=== PATIENT | female | born 1930 | race Caucasian/White ===

== ENCOUNTER 2020-05-07 16:32 | Inpatient (IN) | payer MEDICARE ==
[~2020-05-07] VITALS: Ht 152.4 cm; Wt 32.6 kg
--- NOTE | 2020-05-07 17:38 | PHYS DOC ---
General Adult EDM: Chief Complaint: HIP PAIN HPI: HPI: Patient is a 89 year old female who presents with left hip pain after a stumble and fall at approximately 1600 today. States that she did not lose consciousness, states that her hip immediately hurt after her fall and she was unable to get up and walk. Patient denies any fever or chills at home, patient denies any visual changes, patient denies any nasal congestion, cough, shortness of breath, chest pain, abdominal pain, nausea, vomiting, diarrhea, constipation. Patient denies any problems urinating. Patient denies any back pains, skin rashes, headaches, focal weaknesses, or sensory changes. She denies any swelling of her glands. Patient denies any depression or anxiety. Review of Systems: Review of Systems: Constitutional: Denies fever or chills. Eyes: Denies change in visual acuity. HENT: Denies nasal congestion or sore throat. Respiratory: Denies cough or shortness of breath. Cardiovascular: Denies chest pain or edema. GI: Denies abdominal pain, nausea, vomiting, bloody stools or diarrhea. : Denies dysuria. Musculoskeletal: Denies back pain, complains of left hip pain. Integument: Denies rash. Neurologic: Denies headache, focal weakness or sensory changes. Psychiatric: Denies depression or anxiety. Heart Score: Risk Factors: Risk Factors: DM, Current or recent (<one month) smoker, HTN, HLP, family h istory of CAD, obesity. Risk Scores: Score 0 - 3: 2.5% MACE over next 6 weeks - Discharge Home Score 4 - 6: 20.3% MACE over next 6 weeks - Admit for Clinical Observation Score 7 - 10: 72.7% MACE over next 6 weeks - Early Invasive Strategies Allergies: Allergies: Patient is allergic to penicillin, amoxicillin, aspirin, clarithromycin, erythromycin base, and ibuprofen. Allergies Coded Allergies Type Severity Reaction Last Updated Verified Penicillins Allergy Unknown Rash 05/07/20 Yes amoxicillin Allergy Unknown Rash 05/07/20 Yes aspirin Allergy Unknown Unknown 05/07/20 Yes clarithromycin Allergy Unknown Unknown 05/07/20 Yes erythromycin base Allergy Unknown Rash 05/07/20 Yes ibuprofen Allergy Unknown Unknown 05/07/20 Yes Physical Exam: PE: Constitutional: Well developed, well nourished, no acute distress, non-toxic appearance. HENT: Normocephalic, atraumatic, bilateral external ears normal, oropharynx moist, no oral exudates, nose normal. Eyes: PERRLA, EOMI, conjunctiva normal, no discharge. Neck: Normal range of motion, no tenderness, supple, no stridor. Cardiovascular:Heart rate regular rhythm, no murmur no abnormalities per auscultation Lungs & Thorax: Bilateral breath sounds I/E wheezes upper lobes, diminished in bilateral lower lobes. Abdomen: Bowel sounds normal, soft, no tenderness, no masses, no pulsatile masses. Skin: Warm, dry, no erythema, no rash. Back: No tenderness, no CVA tenderness. Extremities: Tenderness to the right hip area without full range of motion related to pain., no cyanosis, no clubbing, no edema. Neurologic: Alert and oriented X 3, normal motor function, normal sensory function, no focal deficits noted. Psychologic: Affect normal, judgement normal, mood normal. EKG: EKG: [] Radiology/Procedures: Radiology/Procedures: REASON: FALL/DEFORMITY 12 PROCEDURE: HIP LEFT 2V WITH PELVIS Exam: Pelvis with left hip 2 views INDICATION: Fall, deformity TECHNIQUE: Frontal view of pelvis with frontal and frog-leg lateral views of the left hip Comparisons: None FINDINGS: There is a comminuted intertrochanteric left hip fracture which is moderately displaced. Lesser trochanter is medially displaced. No other fractures are seen. Joint spaces are well-maintained. Mild osteopenia. IMPRESSION: Comminuted moderately displaced intertrochanteric left hip fracture. Electronically signed by: Lisa Ann MD (05/07/2020 7:25 PM) [id number] DICTATED and SIGNED BY: LISA ANN MD DATE: 05/07/201924 REASON: FALL/DEFORMITY PROCEDURE: CHEST AP ONLY Exam: Chest one view INDICATION: Fall, deformity TECHNIQUE: Frontal view of the chest Comparisons: None FINDINGS: The cardiomediastinal silhouette and pulmonary vessels are within normal limits. The lung and pleural spaces are clear. IMPRESSION: No acute cardiopulmonary process. Electronically signed by: Lisa Ann MD (05/07/2020 7:23 PM) [id number] DICTATED and SIGNED BY: LISA ANN MD DATE: 05/07/201922 Course & Med Decision Making: Course & Med Decision Making Pertinent Labs and Imaging studies reviewed. (See chart for details) 89-year-old female patient presented emergency department stating that she was trying to go see what a dog was barking that stumbled and fell injuring her left hip. She denied any loss of consciousness. Imaging was ordered which showed a left hip fracture. Patient had i.e. wheezes to auscultation during lung exam however patient denies shortness of breath. Patient states that if she would get a breathing treatment that would probably go away. Patient states she has a history of COPD. A albuterol treatment was ordered, patient states that she does not feel really any different but she never felt short of breath to begin with. Discussed case with Dr. Hi who agreed to take patient for admission. Consulted with Dr. Moralez by ED attending Dr. Arana. Discussed with patient patient will be admitted to floor and Ortho surgery and will be seeing her. Patient agreed to this plan. Patient admitted to floor without incident. Dragon Disclaimer: Dragon Disclaimer: This electronic medical record was generated, in whole or in part, using a voice recognition dictation system. Departure Departure Impression: Primary Impression: Hip fracture, left Qualified Codes: S72.002A - Fracture of unspecified part of neck of left femur, initial encounter for closed fracture Disposition: ADMITTED INPATIENT Admitting Physician: [facility] (Dr. Hi) Condition: GUARDED Referrals: ALLEGRA NUR MD (PCP) Justicifation of Admission Dx: Justifications for Admission: Justification of Admission Dx: Yes Fracture: Fracture Comments: Left hip fracture. ANNE MARIE MACIAS APRN May 07, 2020 17:38
[2020-05-07] MEDS ORDERED: ALBUTEROL SULFATE 2.5 MG/3 ML NEBU. NEB ONE (17:45)
[2020-05-07] MEDS ORDERED: fentaNYL PF VIAL 100 MCG/2 ML VIAL IVP ONE ×2 (17:45→18:45)
[2020-05-07 17:53] LABS: BASO % 1 % (0-3); EOS # 0.1 x10^3/uL (0.0-0.7); EOS % 2 % (0-3); HEMATOCRIT 38.8 % (36.0-47.0); HEMOGLOBIN 12.9 g/dL (12.0-15.5); LYMPH # 0.6 x10^3/uL (1.0-4.8); LYMPH % 12 % (24-48); MEAN CORPUSCULAR HEMOGLOBIN 29 pg (25-35); MEAN CORPUSCULAR HGB CONC 33 g/dL (31-37); MEAN CORPUSCULAR VOLUME 87 fL (79-100); MONO # 0.5 x10^3/uL (0.0-1.1); MONO % 12 % (0-9); NEUT # 3.4 x10^3/uL (1.8-7.7); NEUT % 73 % (31-73); PLATELET COUNT 232 x10^3/uL (140-400); RED BLOOD COUNT 4.46 x10^6/uL (3.50-5.40); RED CELL DISTRIBUTION WIDTH 14.9 % (11.5-14.5); WHITE BLOOD COUNT 4.7 x10^3/uL (4.0-11.0)
[2020-05-07 18:01] LABS: CALCIUM 8.7 mg/dL (8.5-10.1); CREATININE 0.9 mg/dL (0.6-1.0); GFR 59.2; POTASSIUM 3.1 mmol/L (3.5-5.1)
[2020-05-07 18:03] LABS: PROTHROMBIN TIME PATIENT 11.9 SEC (11.7-14.0)
[2020-05-07 18:08] LABS: ALBUMIN 2.9 g/dL (3.4-5.0); ALBUMIN/GLOBULIN RATIO 0.9 (1.0-1.7); TOTAL BILIRUBIN 0.4 mg/dL (0.2-1.0); TOTAL PROTEIN 6.3 g/dL (6.4-8.2)
--- NOTE | 2020-05-07 19:26 | RAD ---
Exam: Chest one view INDICATION: Fall, deformity TECHNIQUE: Frontal view of the chest Comparisons: None FINDINGS: The cardiomediastinal silhouette and pulmonary vessels are within normal limits. The lung and pleural spaces are clear. IMPRESSION: No acute cardiopulmonary process. Electronically signed by: Paola Smart MD (05/07/2020 7:23 PM) [id number]
--- NOTE | 2020-05-07 19:28 | RAD ---
Exam: Pelvis with left hip 2 views INDICATION: Fall, deformity TECHNIQUE: Frontal view of pelvis with frontal and frog-leg lateral views of the left hip Comparisons: None FINDINGS: There is a comminuted intertrochanteric left hip fracture which is moderately displaced. Lesser trochanter is medially displaced. No other fractures are seen. Joint spaces are well-maintained. Mild osteopenia. IMPRESSION: Comminuted moderately displaced intertrochanteric left hip fracture. Electronically signed by: Paola Smart MD (05/07/2020 7:25 PM) [id number]
[2020-05-07 19:45] VITALS: BP 103/62
--- NOTE | 2020-05-07 20:25 | PDOC1 ---
History and Physical Date of Admission: Date of Admission DATE: 05/07/20 TIME: 20:20 Chief Complaint: Chief Complain: Fall History of Present Illness: HPI: Patient is a pleasant 89-year-old female with past medical history of COPD who comes from home because of left-sided hip pain after a fall that occurred around 1600 today. Patient states that she also fell this morning but she only injured her hand at that time. The second fall which she had occurred sometime after lunch and she states that she tripped over a rug in her bedroom. Patient is unsure whether she was dizzy or not. She denies loss of consciousness or seizure activity. Patient states that she does live at home and walks unassisted. She has never had a fall before. Patient describes as pain in her left groin area and she is unable to move her leg. Pain is exacerbated by movement. Denies shortness of breath, chest pain, abdominal pain, diarrhea, or loss of appetite. Past Medical/Surgical History: PMH/PSH: History of breast cancer Allergies: Allergies: Coded Allergies: Penicillins (Verified Allergy, Unknown, Rash, 05/07/20) amoxicillin (Verified Allergy, Unknown, Rash, 05/07/20) aspirin (Verified Allergy, Unknown, Unknown, 05/07/20) clarithromycin (Verified Allergy, Unknown, Unknown, 05/07/20) erythromycin base (Verified Allergy, Unknown, Rash, 05/07/20) ibuprofen (Verified Allergy, Unknown, Unknown, 05/07/20) Family History: Family History: Review and then reported Social History: Social History: Smokes about a pack every 2 to 3 days Current Medications: Current Medications Current Medications Fentanyl Citrate (Fentanyl 2ml Vial) 25 mcg 1X ONCE IVP Last administered on 05/07/20at 18:12; Start 05/07/20 at 17:45; Stop 05/07/20 at 17:46; Status DC Albuterol Sulfate (Ventolin Neb Soln) 2.5 mg 1X ONCE NEB Last administered on 05/07/20at 18:28; Start 05/07/20 at 17:45; Stop 05/07/20 at 17:46; Status DC Fentanyl Citrate (Fentanyl 2ml Vial) 50 mcg 1X ONCE IVP Last administered on 05/07/20at 18:47; Start 05/07/20 at 18:45; Stop 05/07/20 at 18:46; Status DC ROS: Review of Systems Review of System REVIEW OF SYSTEMS: GENERAL: Denies weakness SKIN: No bruising, hair changes or rashes. EYES: No blurred, double or loss of vision. NOSE AND THROAT: No history of nosebleeds, hoarseness or sore throat. HEART: No history of palpitations, chest pain or shortness of breath on exertion. LUNGS: Denies cough, hemoptysis, wheezing or shortness of breath. GASTROINTESTINAL: Denies changes in appetite, nausea, vomiting, diarrhea or constipation. GENITOURINARY: No history of frequency, urgency, hesitancy or nocturia. NEUROLOGIC: Denies history of numbness, tingling, or tremor. PSYCHIATRIC: No history of panic, anxiety or depression. ENDOCRINE: No history of heat or cold intolerance, polyuria or polydipsia. EXTREMITIES: Denies joint pain, pain on walking or stiffness. Physical Exam: Vital Signs: Vital Signs Date Time Temp Pulse Resp B/P (MAP) Pulse Ox O2 Delivery O2 Flow Rate FiO2 05/07/20 18:30 94 Nasal Cannula 2.0 05/07/20 16:35 97.7 97 18 165/83 (110) 97.7 Physcial Exam: GEN: No apparent distress. Alert and oriented HEENT: Normal cephalic, atraumatic, external auditory canals are patent EYES: Extraocular muscles are intact, pupil are equally round and reactive to light and accommodation MUSCULOSKELETAL: Well developed , well nourished, good range of motion ENDOCRINE: No thyromegaly was palpated LYMPHATICS: No cervical chain or axillary nodes were noted HEMATOPOIETIC: No bruising NECK: Supple, no JVD, no thyromegaly was noted LUNGS: Clear to auscultation in all lung pina without rhonchi or wheezing HEART: RRR, S!, S2 present. Peripheral pulses intact, no obvious murmurs noted ABDOMEN: Soft, nontender. Positive bowel sounds, no organomegaly, normal bowel sounds EXTREMITIES: Without clubbing, cyanosis, or edema. Pedal pulses intact. Negative Homans sign NEUROLOGIC: Normal speech and tone. A&O x 3, moves all extremities, no obvious focal deficits PSYCHIATRIC: Normal affect, normal mood. Stable SKIN: No ulcerations or rashes, good skin turgor, no jaundice VASCULAR: Good capillary refill, neurovascular bundle appears to be intact Labs: Labs: Laboratory Tests Test 05/07/20 17:15 White Blood Count 4.7 x10^3/uL (4.0-11.0) Red Blood Count 4.46 x10^6/uL (3.50-5.40) Hemoglobin 12.9 g/dL (12.0-15.5) Hematocrit 38.8 % (36.0-47.0) Mean Corpuscular Volume 87 fL (79-100) Mean Corpuscular Hemoglobin 29 pg (25-35) Mean Corpuscular Hemoglobin Concent 33 g/dL (31-37) Red Cell Distribution Width 14.9 % (11.5-14.5) Platelet Count 232 x10^3/uL (140-400) Neutrophils (%) (Auto) 73 % (31-73) Lymphocytes (%) (Auto) 12 % (24-48) Monocytes (%) (Auto) 12 % (0-9) Eosinophils (%) (Auto) 2 % (0-3) Basophils (%) (Auto) 1 % (0-3) Neutrophils # (Auto) 3.4 x10^3/uL (1.8-7.7) Lymphocytes # (Auto) 0.6 x10^3/uL (1.0-4.8) Monocytes # (Auto) 0.5 x10^3/uL (0.0-1.1) Eosinophils # (Auto) 0.1 x10^3/uL (0.0-0.7) Basophils # (Auto) 0.0 x10^3/uL (0.0-0.2) Prothrombin Time 11.9 SEC (11.7-14.0) Prothromb Time International Ratio 0.9 (0.8-1.1) Activated Partial Thromboplast Time 29 SEC (24-38) Sodium Level 141 mmol/L (136-145) Potassium Level 3.1 mmol/L (3.5-5.1) Chloride Level 100 mmol/L (98-107) Carbon Dioxide Level 39 mmol/L (21-32) Anion Gap 2 (6-14) Blood Urea Nitrogen 12 mg/dL (7-20) Creatinine 0.9 mg/dL (0.6-1.0) Estimated GFR (Cockcroft-Gault) 59.2 BUN/Creatinine Ratio 13 (6-20) Glucose Level 117 mg/dL (70-99) Calcium Level 8.7 mg/dL (8.5-10.1) Total Bilirubin 0.4 mg/dL (0.2-1.0) Aspartate Amino Transf (AST/SGOT) 24 U/L (15-37) Alanine Aminotransferase (ALT/SGPT) 21 U/L (14-59) Alkaline Phosphatase 83 U/L (46-116) Total Protein 6.3 g/dL (6.4-8.2) Albumin 2.9 g/dL (3.4-5.0) Albumin/Globulin Ratio 0.9 (1.0-1.7) Laboratory Tests Test 05/07/20 17:15 White Blood Count 4.7 x10^3/uL (4.0-11.0) Red Blood Count 4.46 x10^6/uL (3.50-5.40) Hemoglobin 12.9 g/dL (12.0-15.5) Hematocrit 38.8 % (36.0-47.0) Mean Corpuscular Volume 87 fL (79-100) Mean Corpuscular Hemoglobin 29 pg (25-35) Mean Corpuscular Hemoglobin Concent 33 g/dL (31-37) Red Cell Distribution Width 14.9 % (11.5-14.5) Platelet Count 232 x10^3/uL (140-400) Neutrophils (%) (Auto) 73 % (31-73) Lymphocytes (%) (Auto) 12 % (24-48) Monocytes (%) (Auto) 12 % (0-9) Eosinophils (%) (Auto) 2 % (0-3) Basophils (%) (Auto) 1 % (0-3) Neutrophils # (Auto) 3.4 x10^3/uL (1.8-7.7) Lymphocytes # (Auto) 0.6 x10^3/uL (1.0-4.8) Monocytes # (Auto) 0.5 x10^3/uL (0.0-1.1) Eosinophils # (Auto) 0.1 x10^3/uL (0.0-0.7) Basophils # (Auto) 0.0 x10^3/uL (0.0-0.2) Prothrombin Time 11.9 SEC (11.7-14.0) Prothromb Time International Ratio 0.9 (0.8-1.1) Activated Partial Thromboplast Time 29 SEC (24-38) Sodium Level 141 mmol/L (136-145) Potassium Level 3.1 mmol/L (3.5-5.1) Chloride Level 100 mmol/L (98-107) Carbon Dioxide Level 39 mmol/L (21-32) Anion Gap 2 (6-14) Blood Urea Nitrogen 12 mg/dL (7-20) Creatinine 0.9 mg/dL (0.6-1.0) Estimated GFR (Cockcroft-Gault) 59.2 BUN/Creatinine Ratio 13 (6-20) Glucose Level 117 mg/dL (70-99) Calcium Level 8.7 mg/dL (8.5-10.1) Total Bilirubin 0.4 mg/dL (0.2-1.0) Aspartate Amino Transf (AST/SGOT) 24 U/L (15-37) Alanine Aminotransferase (ALT/SGPT) 21 U/L (14-59) Alkaline Phosphatase 83 U/L (46-116) Total Protein 6.3 g/dL (6.4-8.2) Albumin 2.9 g/dL (3.4-5.0) Albumin/Globulin Ratio 0.9 (1.0-1.7) Images: Images All labs, images, and reports were reviewed by me personally Exam: Chest one view INDICATION: Fall, deformity TECHNIQUE: Frontal view of the chest Comparisons: None FINDINGS: The cardiomediastinal silhouette and pulmonary vessels are within normal limits. The lung and pleural spaces are clear. IMPRESSION: No acute cardiopulmonary process. Exam: Pelvis with left hip 2 views INDICATION: Fall, deformity TECHNIQUE: Frontal view of pelvis with frontal and frog-leg lateral views of the left hip Comparisons: None FINDINGS: There is a comminuted intertrochanteric left hip fracture which is moderately displaced. Lesser trochanter is medially displaced. No other fractures are seen. Joint spaces are well-maintained. Mild osteopenia. IMPRESSION: Comminuted moderately displaced intertrochanteric left hip fracture. Assessment/Plan Assessment/Plan Acute comminuted intertrochanteric left hip fracture which is moderately displaced. Lesser trochanter is medially displaced. Mechanical fall Mild osteopenia COPD Acute hypokalemia Hypercapnia Admit to medicine Pending Ortho evaluation Electrolyte replacement protocol PRN Duo nebs PRN Fall precautions Lovenox for DVT prophylaxis Regular diet Full code Discussed with RN and ED physician Dispo pending Ortho evaluation Justicifation of Admission Dx: Justifications for Admission: Justification of Admission Dx: Yes Fracture: Fracture MARIAH MCCARTNEY MD May 07, 2020 20:25
[2020-05-07] MEDS ORDERED: POTASSIUM BICARB 20 MEQ EFFERVESCENT TABLET. PO PRN (20:30)
[2020-05-07] MEDS ORDERED: POTASSIUM CHLORIDE 10MEQ 100 ML IV PRN ×2 (20:30)
[2020-05-07] MEDS ORDERED: POTASSIUM CHLORIDE 20 MEQ TABLET.ER. PO PRN (20:30)
[2020-05-07] MEDS ORDERED: POTASSIUM & SODIUM PHOSPHATES PACKET. PO PRN (21:00)
[2020-05-07] MEDS ORDERED: POTASSIUM CHLORIDE 20 MEQ TABLET.ER. PO ONE (21:00)
[2020-05-07 21:45] VITALS: BP 103/62
[2020-05-07] MEDS ORDERED: ENOXAPARIN 30 MG/0.3 ML SYRINGE. SQ ONE (21:45)
[2020-05-07] MEDS ORDERED: ALBUTEROL SULFATE 2.5 MG/3 ML NEBU. NEB PRN (21:45)
[2020-05-07] MEDS: HYDROmorphone 2 MG/ML VIAL IV PRN (22:28)
--- NOTE | 2020-05-07 22:30 | NUR ---
Scheduled Lovenox non-administered at this time d/t possibility of surgery on 05/08/20.
--- NOTE | 2020-05-07 23:00 | NUR ---
ADMIT NOTE The patient, SHALINI GATICA, 89 y/o, F admitted by MARIAH MCCARTNEY MD, was given written information regarding hospital policies, unit procedures and contact persons. Patient orientated to room, admit packet reviewed and plan of care discussed. MD aware of admission and orders rcvd. Zeng catheter placed per protocol; patient tolerated well. Allergies verified with patient and patient unable to remember dosages of all medications at this time. Patient in bed, call light within reach and ice applied to affected leg; no other needs voiced at this time.
[2020-05-08] VITALS (15 sets, daily range): BP systolic 75–168; BP diastolic 41–67
[2020-05-08 02:24] LABS: PROTHROMBIN TIME PATIENT 12.1 SEC (11.7-14.0)
[2020-05-08 02:39] LABS: CALCIUM 8.4 mg/dL (8.5-10.1); CREATININE 1.1 mg/dL (0.6-1.0); POTASSIUM 3.8 mmol/L (3.5-5.1)
[2020-05-08 03:51] LABS: BILIRUBIN,URINE SMALL (NEG); CLARITY,URINE CLEAR; COLOR,URINE YELLOW; NITRITE,URINE NEGATIVE (NEG); PH,URINE 6.5 (<5.0-8.0); PROTEIN,URINE 30 mg/dL (NEG-TRACE); UROBILINOGEN,URINE 0.2 mg/dL (0.2 mg/dL)
[2020-05-08 04:01] LABS: SQUAMOUS EPITHELIAL CELL,UR FEW /LPF
[2020-05-08 04:02] LABS: BACTERIA,URINE 0 /HPF (0-FEW); HYALINE CASTS, URINE FEW /HPF
[2020-05-08] MEDS: HYDROmorphone 2 MG/ML VIAL IV PRN ×2 (05:29→19:28)
[2020-05-08] MEDS ORDERED: FLUT9.9S NS (05:52)
[2020-05-08] MEDS ORDERED: LORA-627 PO (05:52)
[2020-05-08] MEDS ORDERED: Advair (05:52)
[2020-05-08] MEDS ORDERED: synthroid (05:52)
[2020-05-08] MEDS ORDERED: MONT10TA49 PO (05:52)
[2020-05-08] MEDS ORDERED: Albuterol Inhaler (05:52)
[2020-05-08] MEDS ORDERED: ATROVENT HFA12.9 GM IH (05:52)
[2020-05-08] MEDS ORDERED: Diltiazem (05:52)
[2020-05-08] MEDS ORDERED: WHEA1POW8 PO (05:52)
[2020-05-08] MEDS ORDERED: PROPOFOL 10 MG/ML (20ML) VIAL. IV ONE (08:37)
[2020-05-08] MEDS ORDERED: fentaNYL PF VIAL 100 MCG/2 ML VIAL ONE ×2 (08:37→09:12)
[2020-05-08] MEDS ORDERED: LIDOCAINE 2% PF 5 ML VIAL. ONE (08:37)
--- NOTE | 2020-05-08 08:48 | NUR ---
To surgery per bed accompanied by family member, love catheter to DD, saline lock RFA, report called to Dee in PACU
[2020-05-08] MEDS ORDERED: IV RINGERS,LACTATED 1000ML 1,000 ML IV SCH (09:18)
[2020-05-08] MEDS ORDERED: fentaNYL PF VIAL 100 MCG/2 ML VIAL IV PRN ×2 (09:30)
[2020-05-08] MEDS ORDERED: PROCHLORPERAZINE 10 MG/2 ML VIAL. IV PRN (09:30)
[2020-05-08] MEDS ORDERED: ONDANSETRON PF 4 MG/2 ML VIAL. IV PRN (09:30)
[2020-05-08] MEDS ORDERED: MORPHINE SULFATE 2 MG/ML VIAL. IV PRN (09:30)
[2020-05-08] MEDS ORDERED: LIDOCAINE 1% PF 2 ML VIAL. ID PRN (09:30)
[2020-05-08] MEDS ORDERED: HYDROmorphone 2 MG/ML VIAL IV PRN (09:30)
--- NOTE | 2020-05-08 09:35 | PDOC2 ---
CONSULT Date of Consult Date of Consult DATE: 05/08/20 TIME: 09:31 Reason for Consult Reason for Consult: Left hip fracture Referring Physician Referring Physician: Kolton Identification/Chief Complaint Chief Complaint Unobtainable Source Source: Caregiver, Chart review History of Present Illness Reason for Visit: Patient is a pleasant 89-year-old female who is brought into the hospital after a ground-level fall resulted in pain and inability to ambulate. She lives with her granddaughter who accompanied her this morning. Granddaughter tells me that her grandmother is normally able to ambulate around the house, she occasionally uses a walker. She tripped on a rug and fell at home yesterday evening and was brought into the hospital. The patient does not answer ask any questions, she does moan in pain from time to time. According to the granddaughter, no prior history of any hip complaints. Past Medical History Cardiovascular: HTN Pulmonary: COPD CENTRAL NERVOUS SYSTEM: Dementia ENT: Other (Uses hearing aids) Renal/: Urinary Incontinence Past Surgical History Past Surgical History: No pertinent history Family History Family History: Heart Disease Social History Quit ALCOHOL: none Lives: with Family Current Medications Current Medications Current Medications Fentanyl Citrate (Fentanyl 2ml Vial) 25 mcg 1X ONCE IVP Last administered on 05/07/20at 18:12; Start 05/07/20 at 17:45; Stop 05/07/20 at 17:46; Status DC Albuterol Sulfate (Ventolin Neb Soln) 2.5 mg 1X ONCE NEB Last administered on 05/07/20at 18:28; Start 05/07/20 at 17:45; Stop 05/07/20 at 17:46; Status DC Fentanyl Citrate (Fentanyl 2ml Vial) 50 mcg 1X ONCE IVP Last administered on 05/07/20at 18:47; Start 05/07/20 at 18:45; Stop 05/07/20 at 18:46; Status DC Potassium Chloride (Klor-Con) 40 meq 1X PRN PO PER PROTOCOL; Start 05/07/20 at 20:30 Potassium Chloride/Water 100 ml @ 100 mls/hr PRN Q1HR PRN IV SEE COMMENTS; Start 05/07/20 at 20:30 Potassium Phos/ Sodium Phos (Phos-Nak) 1 pkt PRN BID PRN PO SEE COMMENTS; Start 05/07/20 at 21:00 Potassium Bicarbonate (Potassium Effervescent Tablet) 40 meq PRN Q4HRS PRN PO SEE COMMENTS; Start 05/07/20 at 20:30 Potassium Chloride/Water 100 ml @ 100 mls/hr PRN Q1HR PRN IV SEE COMMENTS; Start 05/07/20 at 20:30 Hydromorphone HCl (Dilaudid) 0.2 mg PRN Q1HR PRN IV PAIN Last administered on 05/08/20at 05:29; Start 05/07/20 at 20:30 Potassium Chloride (Klor-Con) 40 meq 1X ONCE PO Last administered on 05/07/20at 22:27; Start 05/07/20 at 21:00; Stop 05/07/20 at 21:01; Status DC Albuterol Sulfate (Ventolin Neb Soln) 2.5 mg PRN QID PRN NEB SHORTNESS OF BREATH; Start 05/07/20 at 21:45 Enoxaparin Sodium (Lovenox 30mg Syringe) 30 mg 1X ONCE SQ ; Start 05/07/20 at 21:45; Stop 05/07/20 at 21:46; Status DC Propofol (Diprivan) 200 mg STK-MED ONCE IV ; Start 05/08/20 at 08:37; Stop 05/08/20 at 08:38; Status DC Lidocaine HCl (Lidocaine Pf 2% Vial) 5 ml STK-MED ONCE .ROUTE ; Start 05/08/20 at 08:37; Stop 05/08/20 at 08:38; Status DC Fentanyl Citrate (Fentanyl 2ml Vial) 100 mcg STK-MED ONCE .ROUTE ; Start 05/08/20 at 08:37; Stop 05/08/20 at 08:38; Status DC Morphine Sulfate 5 mg/Ropivacaine 60 ml/Epinephrine HCl 0.5 mg/Sodium Chloride 99 ml @ 99 mls/hr 1X ONCE INT ART ; Start 05/08/20 at 09:00; Stop 05/08/20 at 09:59 Cefazolin Sodium/ Dextrose 50 ml @ 100 mls/hr 1X ONCE IV ; Start 05/08/20 at 08:49; Stop 05/08/20 at 09:18; Status DC Fentanyl Citrate (Fentanyl 2ml Vial) 100 mcg STK-MED ONCE .ROUTE ; Start 05/08/20 at 09:12; Stop 05/08/20 at 09:12; Status DC Ondansetron HCl (Zofran) 4 mg PRN Q6HRS PRN IV NAUSEA/VOMITING; Start 05/08/20 at 09:30; Stop 05/09/20 at 09:29 Fentanyl Citrate (Fentanyl 2ml Vial) 25 mcg PRN Q5MIN PRN IV MILD PAIN 1-3; Start 05/08/20 at 09:30; Stop 05/09/20 at 09:29 Fentanyl Citrate (Fentanyl 2ml Vial) 50 mcg PRN Q5MIN PRN IV MODERATE TO SEVERE PAIN; Start 05/08/20 at 09:30; Stop 05/09/20 at 09:29 Morphine Sulfate (Morphine Sulfate) 1 mg PRN Q10MIN PRN IV SEVERE PAIN 7-10; Start 05/08/20 at 09:30; Stop 05/09/20 at 09:29 Ringer's Solution 1,000 ml @ 30 mls/hr Q24H IV ; Start 05/08/20 at 09:18; Stop 05/08/20 at 21:17 Lidocaine HCl (Xylocaine-Mpf 1% 2ml Vial) 2 ml PRN 1X PRN ID PRIOR TO IV START; Start 05/08/20 at 09:30; Stop 05/09/20 at 09:29 Hydromorphone HCl (Dilaudid) 0.5 mg PRN Q10MIN PRN IV SEV PAIN, Second choice; Start 05/08/20 at 09:30; Stop 05/09/20 at 09:29 Prochlorperazine Edisylate (Compazine) 5 mg PACU PRN PRN IV NAUSEA, MRX1; Start 05/08/20 at 09:30; Stop 05/09/20 at 09:29 Active Scripts Active Reported Benefiber (Wheat Dextrin) 1 Each Powd.pack 1 Each PO PRN DAILY PRN [Albuterol Inhaler] [Advair] Atrovent Hfa (Ipratropium Gaffney) 12.9 Gm Hfa.aer.ad 2 Puff IH QID [synthroid] [Diltiazem] Montelukast Sodium Tablet (Montelukast Sodium) 10 Mg Tablet 10 Mg PO HS Claritin-D 24 Hour Tablet (Loratadine/Pseudoephedrine) 1 Each Tab.er.24h 1 Tab PO DAILY 10 Days Flonase Allergy Relief (Fluticasone Propionate) 9.9 Ml [place].susp 2 Sprays NS DAILY Allergies Allergies: Coded Allergies: Penicillins (Verified Allergy, Unknown, Rash, 05/07/20) amoxicillin (Verified Allergy, Unknown, Rash, 05/07/20) aspirin (Verified Allergy, Unknown, Unknown, 05/07/20) clarithromycin (Verified Allergy, Unknown, Unknown, 05/07/20) erythromycin base (Verified Allergy, Unknown, Rash, 05/07/20) ibuprofen (Verified Allergy, Unknown, Unknown, 05/07/20) ROS Review of System Unobtainable secondary to patient's mental status Physical Exam General: Alert, mild distress, Other (Patient does not answer ask any questions, does not respond to questions) HEENT: Atraumatic, EOMI Lungs: Other (Respirations are unlabored with symmetric chest rise) Heart: Regular rate Abdomen: Soft, No tenderness Extremities: No edema, Normal pulses Neuro: Strength at 5/5 X4 ext Psych/Mental Status: Mood NL, Other (Unable to assess mental status secondary to patient's inability to answer questions) MUSCULOSKELETAL: Other (Left lower extremity is shortened and slightly externally rotated. She has pain with any movement of her leg. She is tender around her hip. No gross deformity, abrasions or ecchymoses in her legs otherwise.) Vitals VITALS Vital Signs Date Time Temp Pulse Resp B/P (MAP) Pulse Ox O2 Delivery O2 Flow Rate FiO2 05/08/20 09:00 99.5 112 15 179/79 95 Nasal Cannula 2.0 99.5 Labs Labs Laboratory Tests Test 05/07/20 17:15 05/08/20 01:35 05/08/20 03:00 05/08/20 07:45 White Blood Count 4.7 x10^3/uL (4.0-11.0) Red Blood Count 4.46 x10^6/uL (3.50-5.40) Hemoglobin 12.9 g/dL (12.0-15.5) Hematocrit 38.8 % (36.0-47.0) Mean Corpuscular Volume 87 fL (79-100) Mean Corpuscular Hemoglobin 29 pg (25-35) Mean Corpuscular Hemoglobin Concent 33 g/dL (31-37) Red Cell Distribution Width 14.9 % (11.5-14.5) Platelet Count 232 x10^3/uL (140-400) Neutrophils (%) (Auto) 73 % (31-73) Lymphocytes (%) (Auto) 12 % (24-48) Monocytes (%) (Auto) 12 % (0-9) Eosinophils (%) (Auto) 2 % (0-3) Basophils (%) (Auto) 1 % (0-3) Neutrophils # (Auto) 3.4 x10^3/uL (1.8-7.7) Lymphocytes # (Auto) 0.6 x10^3/uL (1.0-4.8) Monocytes # (Auto) 0.5 x10^3/uL (0.0-1.1) Eosinophils # (Auto) 0.1 x10^3/uL (0.0-0.7) Basophils # (Auto) 0.0 x10^3/uL (0.0-0.2) Prothrombin Time 11.9 SEC (11.7-14.0) 12.1 SEC (11.7-14.0) Prothromb Time International Ratio 0.9 (0.8-1.1) 0.9 (0.8-1.1) Activated Partial Thromboplast Time 29 SEC (24-38) Sodium Level 141 mmol/L (136-145) 143 mmol/L (136-145) Potassium Level 3.1 mmol/L (3.5-5.1) 3.8 mmol/L (3.5-5.1) Chloride Level 100 mmol/L (98-107) 101 mmol/L (98-107) Carbon Dioxide Level 39 mmol/L (21-32) 38 mmol/L (21-32) Anion Gap 2 (6-14) 4 (6-14) Blood Urea Nitrogen 12 mg/dL (7-20) 18 mg/dL (7-20) Creatinine 0.9 mg/dL (0.6-1.0) 1.1 mg/dL (0.6-1.0) Estimated GFR (Cockcroft-Gault) 59.2 47.0 BUN/Creatinine Ratio 13 (6-20) Glucose Level 117 mg/dL (70-99) 161 mg/dL (70-99) Calcium Level 8.7 mg/dL (8.5-10.1) 8.4 mg/dL (8.5-10.1) Total Bilirubin 0.4 mg/dL (0.2-1.0) Aspartate Amino Transf (AST/SGOT) 24 U/L (15-37) Alanine Aminotransferase (ALT/SGPT) 21 U/L (14-59) Alkaline Phosphatase 83 U/L (46-116) Total Protein 6.3 g/dL (6.4-8.2) Albumin 2.9 g/dL (3.4-5.0) Albumin/Globulin Ratio 0.9 (1.0-1.7) 25-Hydroxy Vitamin D Total 43.7 ng/mL (30-100) Urine Collection Type Unknown Urine Color Yellow Urine Clarity Clear Urine pH 6.5 (<5.0-8.0) Urine Specific Sunshine 1.020 (1.000-1.030) Urine Protein 30 mg/dL (NEG-TRACE) Urine Glucose (UA) Negative mg/dL (NEG) Urine Ketones (Stick) Negative mg/dL (NEG) Urine Blood Small (NEG) Urine Nitrite Negative (NEG) Urine Bilirubin Small (NEG) Urine Urobilinogen Dipstick 0.2 mg/dL (0.2 mg/dL) Urine Leukocyte Esterase Negative (NEG) Urine RBC 11-20 /HPF (0-2) Urine WBC 1-4 /HPF (0-4) Urine Squamous Epithelial Cells Few /LPF Urine Bacteria 0 /HPF (0-FEW) Urine Hyaline Casts Few /HPF Urine Mucus Marked /LPF SARS-CoV-2 Antigen (Rapid) Negative (NEGATIVE) Laboratory Tests Test 05/07/20 17:15 05/08/20 01:35 05/08/20 03:00 05/08/20 07:45 White Blood Count 4.7 x10^3/uL (4.0-11.0) Red Blood Count 4.46 x10^6/uL (3.50-5.40) Hemoglobin 12.9 g/dL (12.0-15.5) Hematocrit 38.8 % (36.0-47.0) Mean Corpuscular Volume 87 fL (79-100) Mean Corpuscular Hemoglobin 29 pg (25-35) Mean Corpuscular Hemoglobin Concent 33 g/dL (31-37) Red Cell Distribution Width 14.9 % (11.5-14.5) Platelet Count 232 x10^3/uL (140-400) Neutrophils (%) (Auto) 73 % (31-73) Lymphocytes (%) (Auto) 12 % (24-48) Monocytes (%) (Auto) 12 % (0-9) Eosinophils (%) (Auto) 2 % (0-3) Basophils (%) (Auto) 1 % (0-3) Neutrophils # (Auto) 3.4 x10^3/uL (1.8-7.7) Lymphocytes # (Auto) 0.6 x10^3/uL (1.0-4.8) Monocytes # (Auto) 0.5 x10^3/uL (0.0-1.1) Eosinophils # (Auto) 0.1 x10^3/uL (0.0-0.7) Basophils # (Auto) 0.0 x10^3/uL (0.0-0.2) Prothrombin Time 11.9 SEC (11.7-14.0) 12.1 SEC (11.7-14.0) Prothromb Time International Ratio 0.9 (0.8-1.1) 0.9 (0.8-1.1) Activated Partial Thromboplast Time 29 SEC (24-38) Sodium Level 141 mmol/L (136-145) 143 mmol/L (136-145) Potassium Level 3.1 mmol/L (3.5-5.1) 3.8 mmol/L (3.5-5.1) Chloride Level 100 mmol/L (98-107) 101 mmol/L (98-107) Carbon Dioxide Level 39 mmol/L (21-32) 38 mmol/L (21-32) Anion Gap 2 (6-14) 4 (6-14) Blood Urea Nitrogen 12 mg/dL (7-20) 18 mg/dL (7-20) Creatinine 0.9 mg/dL (0.6-1.0) 1.1 mg/dL (0.6-1.0) Estimated GFR (Cockcroft-Gault) 59.2 47.0 BUN/Creatinine Ratio 13 (6-20) Glucose Level 117 mg/dL (70-99) 161 mg/dL (70-99) Calcium Level 8.7 mg/dL (8.5-10.1) 8.4 mg/dL (8.5-10.1) Total Bilirubin 0.4 mg/dL (0.2-1.0) Aspartate Amino Transf (AST/SGOT) 24 U/L (15-37) Alanine Aminotransferase (ALT/SGPT) 21 U/L (14-59) Alkaline Phosphatase 83 U/L (46-116) Total Protein 6.3 g/dL (6.4-8.2) Albumin 2.9 g/dL (3.4-5.0) Albumin/Globulin Ratio 0.9 (1.0-1.7) 25-Hydroxy Vitamin D Total 43.7 ng/mL (30-100) Urine Collection Type Unknown Urine Color Yellow Urine Clarity Clear Urine pH 6.5 (<5.0-8.0) Urine Specific Sunshine 1.020 (1.000-1.030) Urine Protein 30 mg/dL (NEG-TRACE) Urine Glucose (UA) Negative mg/dL (NEG) Urine Ketones (Stick) Negative mg/dL (NEG) Urine Blood Small (NEG) Urine Nitrite Negative (NEG) Urine Bilirubin Small (NEG) Urine Urobilinogen Dipstick 0.2 mg/dL (0.2 mg/dL) Urine Leukocyte Esterase Negative (NEG) Urine RBC 11-20 /HPF (0-2) Urine WBC 1-4 /HPF (0-4) Urine Squamous Epithelial Cells Few /LPF Urine Bacteria 0 /HPF (0-FEW) Urine Hyaline Casts Few /HPF Urine Mucus Marked /LPF SARS-CoV-2 Antigen (Rapid) Negative (NEGATIVE) Images Images Hip and pelvis x-rays were interpreted by myself. Comminuted intertrochanteric hip fracture is seen. Assessment/Plan Assessment/Plan Closed left intertrochanteric hip fracture I did discuss the risks, benefits, alternatives with the patient's granddaughter regarding my plan treatment of close reduction and intramedullary nailing. Her questions were answered. We will plan on surgery this morning. DUSTIN TOVAR II, MD May 08, 2020 09:35
--- NOTE | 2020-05-08 09:42 | PDOC4 ---
Operative Note Operative Note Date of procedure: 05/08/2020 Surgeon: Will Tovar Cadd Manager: Don Lyons Preoperative diagnosis: Closed left intertrochanteric hip fracture Postoperative diagnosis: Same Procedure performed: Closed reduction and intramedullary nailing left intertrochanteric hip fracture Anesthesia: General Findings: Acute fracture Blood loss: 100 mL Complications: None Components inserted: [employer] InterTAN nail, 10 x 18 cm, 95 lag screw, 90 compression screw Reason for procedure: Patient is a very pleasant 89-year-old female who had a ground-level fall yesterday. Please see my consult note for further details. I had a discussion of the risks, benefits, and alternatives with her granddaughter and she elected to proceed with surgery. Description of procedure: Patient was greeted in the preoperative area by myself and her extremities verified and marked. She was taken to the operative suite and antibiotics started in route. Once in the operating room, transferred gently supine the operating table and secured to the bed with all pressure points padded, we used the fracture table. Left leg in traction ski boot, right leg in a well leg villatoro and we used a well-padded perineal post. I then pe rform my closed reduction maneuver confirming appropriate reduction under biplanar fluoroscopy. We then proceeded to prep and drape left lower extremity and hip region in her usual sterile fashion and conducted our standard preoperative timeout. I used Ioban at the periphery of the draping. I then palpated them and marked ASIS and greater trochanter and abe a line at the intersection point of these and incised skin with a scalpel and bluntly dissected down to the tip of the greater trochanter. After this, I used the C arm to localize my correct starting point for my guidepin and advanced my guidepin down past the lesser trochanter region. I then gained entry to the proximal femur with the entry reamer and the soft tissue protector was used. I then used C arm to impact my nail and position as a guide. After this, I placed the lateral trocar again skin, and incised skin accordance with this and bluntly spread down to bone. I then seated the trocar and used biplanar fluoroscopy to guide me to as close of a center center position as I was able to achieve. I then used my lateral oral cortical drill and placed my derotation bar followed by measuring and drilling for my lag screw. I then placed my lag screw followed by my compression screw. I then remove this lateral trocar assembly, and placed my distal interlocking screw assembly again skin. I incised skin accordance with this and used a hemostat to spread down to bone. I then seated my trocar drilled and placed my distal locking screw. After this, I took my final images after removing the insertion arm. I was happy with fracture reduction and hardware position. It should be noted that after placing a distal interlocking screw, traction was released. The wounds were then irrigated with sterile fluid . I then injected my local anesthetic mixture in the stephanie-incisional soft tissues. We then closed the fascia with [id number] Vicryl followed by inverted retracted 2-0 Vicryl for subcutaneous tissue and angelica for skin. The hip and leg were cleansed and dried and a sterile dressing was applied. All counts correct x2 prior to wound closure. No complications. At the conclusion, she was laid supine and transferred gently supine to the hospital bed and taken to the PACU in a stable and extubated condition. Postoperative plan is to readmit her to the floor under the care of the hospitalist. She received DVT and antibiotic prophylaxis. She can weight-bear as tolerated. I will follow along with her postoperative course. WILL TOVAR II, MD May 08, 2020 09:42
[2020-05-08] MEDS ORDERED: ceFAZolin SODIUM IV Push 1 GM VIAL. IVP SCH (09:45)
[2020-05-08] MEDS ORDERED: PHENYLEPHRINE in 0.9% NACL PF 1 MG/10 ML SYRINGE. IV ONE (10:26)
[2020-05-08] MEDS ORDERED: PHENYLEPHRINE 10 MG/ML VIAL. ONE (10:26)
[2020-05-08] MEDS ORDERED: SEVOFLURANE 61 TO 120 MINUTES. IH ONE (10:33)
[2020-05-08] MEDS ORDERED: ePHEDrine PF IN SALINE 50 MG/10 ML SYRINGE. IV ONE (10:40)
[2020-05-08] MEDS ORDERED: ONDANSETRON PF 4 MG/2 ML VIAL. ONE (10:47)
--- NOTE | 2020-05-08 11:28 | NUR ---
SW following. Discussed with RN, pt from home alone, has daughter and granddaughter who help. Pt having surgery today. PT/OT to see pt after surgery. SW will continue to follow.
--- NOTE | 2020-05-08 12:18 | PDOC ---
PROGRESS NOTES Chief Complaint Chief Complaint Acute comminuted intertrochanteric left hip fracture which is moderately displaced. Lesser trochanter is medially displaced. Mechanical fall Mild osteopenia COPD Acute hypokalemia Hypercapnia to OR today, Dr. Moralez discussed, she will need skilled History of Present Illness History of Present Illness did well with surg start PT and OT will need skilled lovenox proph Vitals Vitals Vital Signs Date Time Temp Pulse Resp B/P (MAP) Pulse Ox O2 Delivery O2 Flow Rate FiO2 05/08/20 11:55 104 12 97/49 100 Nasal Cannula 05/08/20 11:40 98.8 98.8 05/08/20 09:00 2.0 Physical Exam General: Alert, mild distress, Other (Patient does not answer ask any questions, does not respond to questions) Heart: Regular rate Abdomen: Soft, No tenderness Extremities: No edema, Normal pulses Labs LABS Laboratory Tests Test 05/07/20 17:15 05/08/20 01:35 05/08/20 03:00 05/08/20 07:45 White Blood Count 4.7 x10^3/uL (4.0-11.0) Red Blood Count 4.46 x10^6/uL (3.50-5.40) Hemoglobin 12.9 g/dL (12.0-15.5) Hematocrit 38.8 % (36.0-47.0) Mean Corpuscular Volume 87 fL (79-100) Mean Corpuscular Hemoglobin 29 pg (25-35) Mean Corpuscular Hemoglobin Concent 33 g/dL (31-37) Red Cell Distribution Width 14.9 % (11.5-14.5) Platelet Count 232 x10^3/uL (140-400) Neutrophils (%) (Auto) 73 % (31-73) Lymphocytes (%) (Auto) 12 % (24-48) Monocytes (%) (Auto) 12 % (0-9) Eosinophils (%) (Auto) 2 % (0-3) Basophils (%) (Auto) 1 % (0-3) Neutrophils # (Auto) 3.4 x10^3/uL (1.8-7.7) Lymphocytes # (Auto) 0.6 x10^3/uL (1.0-4.8) Monocytes # (Auto) 0.5 x10^3/uL (0.0-1.1) Eosinophils # (Auto) 0.1 x10^3/uL (0.0-0.7) Basophils # (Auto) 0.0 x10^3/uL (0.0-0.2) Prothrombin Time 11.9 SEC (11.7-14.0) 12.1 SEC (11.7-14.0) Prothromb Time International Ratio 0.9 (0.8-1.1) 0.9 (0.8-1.1) Activated Partial Thromboplast Time 29 SEC (24-38) Sodium Level 141 mmol/L (136-145) 143 mmol/L (136-145) Potassium Level 3.1 mmol/L (3.5-5.1) 3.8 mmol/L (3.5-5.1) Chloride Level 100 mmol/L (98-107) 101 mmol/L (98-107) Carbon Dioxide Level 39 mmol/L (21-32) 38 mmol/L (21-32) Anion Gap 2 (6-14) 4 (6-14) Blood Urea Nitrogen 12 mg/dL (7-20) 18 mg/dL (7-20) Creatinine 0.9 mg/dL (0.6-1.0) 1.1 mg/dL (0.6-1.0) Estimated GFR (Cockcroft-Gault) 59.2 47.0 BUN/Creatinine Ratio 13 (6-20) Glucose Level 117 mg/dL (70-99) 161 mg/dL (70-99) Calcium Level 8.7 mg/dL (8.5-10.1) 8.4 mg/dL (8.5-10.1) Total Bilirubin 0.4 mg/dL (0.2-1.0) Aspartate Amino Transf (AST/SGOT) 24 U/L (15-37) Alanine Aminotransferase (ALT/SGPT) 21 U/L (14-59) Alkaline Phosphatase 83 U/L (46-116) Total Protein 6.3 g/dL (6.4-8.2) Albumin 2.9 g/dL (3.4-5.0) Albumin/Globulin Ratio 0.9 (1.0-1.7) 25-Hydroxy Vitamin D Total 43.7 ng/mL (30-100) Urine Collection Type Unknown Urine Color Yellow Urine Clarity Clear Urine pH 6.5 (<5.0-8.0) Urine Specific [place] 1.020 (1.000-1.030) Urine Protein 30 mg/dL (NEG-TRACE) Urine Glucose (UA) Negative mg/dL (NEG) Urine Ketones (Stick) Negative mg/dL (NEG) Urine Blood Small (NEG) Urine Nitrite Negative (NEG) Urine Bilirubin Small (NEG) Urine Urobilinogen Dipstick 0.2 mg/dL (0.2 mg/dL) Urine Leukocyte Esterase Negative (NEG) Urine RBC 11-20 /HPF (0-2) Urine WBC 1-4 /HPF (0-4) Urine Squamous Epithelial Cells Few /LPF Urine Bacteria 0 /HPF (0-FEW) Urine Hyaline Casts Few /HPF Urine Mucus Marked /LPF SARS-CoV-2 Antigen (Rapid) Negative (NEGATIVE) Comment Review of Relevant I have reviewed the following items cameron (where applicable) has been applied. Labs Laboratory Tests Test 05/07/20 17:15 05/08/20 01:35 05/08/20 03:00 05/08/20 07:45 White Blood Count 4.7 x10^3/uL (4.0-11.0) Red Blood Count 4.46 x10^6/uL (3.50-5.40) Hemoglobin 12.9 g/dL (12.0-15.5) Hematocrit 38.8 % (36.0-47.0) Mean Corpuscular Volume 87 fL (79-100) Mean Corpuscular Hemoglobin 29 pg (25-35) Mean Corpuscular Hemoglobin Concent 33 g/dL (31-37) Red Cell Distribution Width 14.9 % (11.5-14.5) Platelet Count 232 x10^3/uL (140-400) Neutrophils (%) (Auto) 73 % (31-73) Lymphocytes (%) (Auto) 12 % (24-48) Monocytes (%) (Auto) 12 % (0-9) Eosinophils (%) (Auto) 2 % (0-3) Basophils (%) (Auto) 1 % (0-3) Neutrophils # (Auto) 3.4 x10^3/uL (1.8-7.7) Lymphocytes # (Auto) 0.6 x10^3/uL (1.0-4.8) Monocytes # (Auto) 0.5 x10^3/uL (0.0-1.1) Eosinophils # (Auto) 0.1 x10^3/uL (0.0-0.7) Basophils # (Auto) 0.0 x10^3/uL (0.0-0.2) Prothrombin Time 11.9 SEC (11.7-14.0) 12.1 SEC (11.7-14.0) Prothromb Time International Ratio 0.9 (0.8-1.1) 0.9 (0.8-1.1) Activated Partial Thromboplast Time 29 SEC (24-38) Sodium Level 141 mmol/L (136-145) 143 mmol/L (136-145) Potassium Level 3.1 mmol/L (3.5-5.1) 3.8 mmol/L (3.5-5.1) Chloride Level 100 mmol/L (98-107) 101 mmol/L (98-107) Carbon Dioxide Level 39 mmol/L (21-32) 38 mmol/L (21-32) Anion Gap 2 (6-14) 4 (6-14) Blood Urea Nitrogen 12 mg/dL (7-20) 18 mg/dL (7-20) Creatinine 0.9 mg/dL (0.6-1.0) 1.1 mg/dL (0.6-1.0) Estimated GFR (Cockcroft-Gault) 59.2 47.0 BUN/Creatinine Ratio 13 (6-20) Glucose Level 117 mg/dL (70-99) 161 mg/dL (70-99) Calcium Level 8.7 mg/dL (8.5-10.1) 8.4 mg/dL (8.5-10.1) Total Bilirubin 0.4 mg/dL (0.2-1.0) Aspartate Amino Transf (AST/SGOT) 24 U/L (15-37) Alanine Aminotransferase (ALT/SGPT) 21 U/L (14-59) Alkaline Phosphatase 83 U/L (46-116) Total Protein 6.3 g/dL (6.4-8.2) Albumin 2.9 g/dL (3.4-5.0) Albumin/Globulin Ratio 0.9 (1.0-1.7) 25-Hydroxy Vitamin D Total 43.7 ng/mL (30-100) Urine Collection Type Unknown Urine Color Yellow Urine Clarity Clear Urine pH 6.5 (<5.0-8.0) Urine Specific [place] 1.020 (1.000-1.030) Urine Protein 30 mg/dL (NEG-TRACE) Urine Glucose (UA) Negative mg/dL (NEG) Urine Ketones (Stick) Negative mg/dL (NEG) Urine Blood Small (NEG) Urine Nitrite Negative (NEG) Urine Bilirubin Small (NEG) Urine Urobilinogen Dipstick 0.2 mg/dL (0.2 mg/dL) Urine Leukocyte Esterase Negative (NEG) Urine RBC 11-20 /HPF (0-2) Urine WBC 1-4 /HPF (0-4) Urine Squamous Epithelial Cells Few /LPF Urine Bacteria 0 /HPF (0-FEW) Urine Hyaline Casts Few /HPF Urine Mucus Marked /LPF SARS-CoV-2 Antigen (Rapid) Negative (NEGATIVE) Laboratory Tests Test 05/07/20 17:15 05/08/20 01:35 05/08/20 03:00 05/08/20 07:45 White Blood Count 4.7 x10^3/uL (4.0-11.0) Red Blood Count 4.46 x10^6/uL (3.50-5.40) Hemoglobin 12.9 g/dL (12.0-15.5) Hematocrit 38.8 % (36.0-47.0) Mean Corpuscular Volume 87 fL (79-100) Mean Corpuscular Hemoglobin 29 pg (25-35) Mean Corpuscular Hemoglobin Concent 33 g/dL (31-37) Red Cell Distribution Width 14.9 % (11.5-14.5) Platelet Count 232 x10^3/uL (140-400) Neutrophils (%) (Auto) 73 % (31-73) Lymphocytes (%) (Auto) 12 % (24-48) Monocytes (%) (Auto) 12 % (0-9) Eosinophils (%) (Auto) 2 % (0-3) Basophils (%) (Auto) 1 % (0-3) Neutrophils # (Auto) 3.4 x10^3/uL (1.8-7.7) Lymphocytes # (Auto) 0.6 x10^3/uL (1.0-4.8) Monocytes # (Auto) 0.5 x10^3/uL (0.0-1.1) Eosinophils # (Auto) 0.1 x10^3/uL (0.0-0.7) Basophils # (Auto) 0.0 x10^3/uL (0.0-0.2) Prothrombin Time 11.9 SEC (11.7-14.0) 12.1 SEC (11.7-14.0) Prothromb Time International Ratio 0.9 (0.8-1.1) 0.9 (0.8-1.1) Activated Partial Thromboplast Time 29 SEC (24-38) Sodium Level 141 mmol/L (136-145) 143 mmol/L (136-145) Potassium Level 3.1 mmol/L (3.5-5.1) 3.8 mmol/L (3.5-5.1) Chloride Level 100 mmol/L (98-107) 101 mmol/L (98-107) Carbon Dioxide Level 39 mmol/L (21-32) 38 mmol/L (21-32) Anion Gap 2 (6-14) 4 (6-14) Blood Urea Nitrogen 12 mg/dL (7-20) 18 mg/dL (7-20) Creatinine 0.9 mg/dL (0.6-1.0) 1.1 mg/dL (0.6-1.0) Estimated GFR (Cockcroft-Gault) 59.2 47.0 BUN/Creatinine Ratio 13 (6-20) Glucose Level 117 mg/dL (70-99) 161 mg/dL (70-99) Calcium Level 8.7 mg/dL (8.5-10.1) 8.4 mg/dL (8.5-10.1) Total Bilirubin 0.4 mg/dL (0.2-1.0) Aspartate Amino Transf (AST/SGOT) 24 U/L (15-37) Alanine Aminotransferase (ALT/SGPT) 21 U/L (14-59) Alkaline Phosphatase 83 U/L (46-116) Total Protein 6.3 g/dL (6.4-8.2) Albumin 2.9 g/dL (3.4-5.0) Albumin/Globulin Ratio 0.9 (1.0-1.7) 25-Hydroxy Vitamin D Total 43.7 ng/mL (30-100) Urine Collection Type Unknown Urine Color Yellow Urine Clarity Clear Urine pH 6.5 (<5.0-8.0) Urine Specific [place] 1.020 (1.000-1.030) Urine Protein 30 mg/dL (NEG-TRACE) Urine Glucose (UA) Negative mg/dL (NEG) Urine Ketones (Stick) Negative mg/dL (NEG) Urine Blood Small (NEG) Urine Nitrite Negative (NEG) Urine Bilirubin Small (NEG) Urine Urobilinogen Dipstick 0.2 mg/dL (0.2 mg/dL) Urine Leukocyte Esterase Negative (NEG) Urine RBC 11-20 /HPF (0-2) Urine WBC 1-4 /HPF (0-4) Urine Squamous Epithelial Cells Few /LPF Urine Bacteria 0 /HPF (0-FEW) Urine Hyaline Casts Few /HPF Urine Mucus Marked /LPF SARS-CoV-2 Antigen (Rapid) Negative (NEGATIVE) Medications Current Medications Fentanyl Citrate (Fentanyl 2ml Vial) 25 mcg 1X ONCE IVP Last administered on 05/07/20at 18:12; Start 05/07/20 at 17:45; Stop 05/07/20 at 17:46; Status DC Albuterol Sulfate (Ventolin Neb Soln) 2.5 mg 1X ONCE NEB Last administered on 05/07/20at 18:28; Start 05/07/20 at 17:45; Stop 05/07/20 at 17:46; Status DC Fentanyl Citrate (Fentanyl 2ml Vial) 50 mcg 1X ONCE IVP Last administered on 05/07/20at 18:47; Start 05/07/20 at 18:45; Stop 05/07/20 at 18:46; Status DC Potassium Chloride (Klor-Con) 40 meq 1X PRN PO PER PROTOCOL; Start 05/07/20 at 20:30 Potassium Chloride/Water 100 ml @ 100 mls/hr PRN Q1HR PRN IV SEE COMMENTS; Start 05/07/20 at 20:30 Potassium Phos/ Sodium Phos (Phos-Nak) 1 pkt PRN BID PRN PO SEE COMMENTS; Start 05/07/20 at 21:00 Potassium Bicarbonate (Potassium Effervescent Tablet) 40 meq PRN Q4HRS PRN PO SEE COMMENTS; Start 05/07/20 at 20:30 Potassium Chloride/Water 100 ml @ 100 mls/hr PRN Q1HR PRN IV SEE COMMENTS; Start 05/07/20 at 20:30 Hydromorphone HCl (Dilaudid) 0.2 mg PRN Q1HR PRN IV PAIN Last administered on 05/08/20at 05:29; Start 05/07/20 at 20:30 Potassium Chloride (Klor-Con) 40 meq 1X ONCE PO Last administered on 05/07/20at 22:27; Start 05/07/20 at 21:00; Stop 05/07/20 at 21:01; Status DC Albuterol Sulfate (Ventolin Neb Soln) 2.5 mg PRN QID PRN NEB SHORTNESS OF BREATH; Start 05/07/20 at 21:45 Enoxaparin Sodium (Lovenox 30mg Syringe) 30 mg 1X ONCE SQ ; Start 05/07/20 at 21:45; Stop 05/07/20 at 21:46; Status DC Propofol (Diprivan) 200 mg STK-MED ONCE IV ; Start 05/08/20 at 08:37; Stop 05/08/20 at 08:38; Status DC Lidocaine HCl (Lidocaine Pf 2% Vial) 5 ml STK-MED ONCE .ROUTE ; Start 05/08/20 at 08:37; Stop 05/08/20 at 08:38; Status DC Fentanyl Citrate (Fentanyl 2ml Vial) 100 mcg STK-MED ONCE .ROUTE ; Start 05/08/20 at 08:37; Stop 05/08/20 at 08:38; Status DC Morphine Sulfate 5 mg/Ropivacaine 60 ml/Epinephrine HCl 0.5 mg/Sodium Chloride 99 ml @ 99 mls/hr 1X ONCE INT ART Last administered on 05/08/20at 10:33; Start 05/08/20 at 09:00; Stop 05/08/20 at 09:59; Status DC Cefazolin Sodium/ Dextrose 50 ml @ 100 mls/hr 1X ONCE IV Last administered on 05/08/20at 10:04; Start 05/08/20 at 08:49; Stop 05/08/20 at 09:18; Status DC Fentanyl Citrate (Fentanyl 2ml Vial) 100 mcg STK-MED ONCE .ROUTE ; Start 05/08/20 at 09:12; Stop 05/08/20 at 09:12; Status DC Ondansetron HCl (Zofran) 4 mg PRN Q6HRS PRN IV NAUSEA/VOMITING; Start 05/08/20 at 09:30; Stop 05/09/20 at 09:29 Fentanyl Citrate (Fentanyl 2ml Vial) 25 mcg PRN Q5MIN PRN IV MILD PAIN 1-3; Start 05/08/20 at 09:30; Stop 05/09/20 at 09:29 Fentanyl Citrate (Fentanyl 2ml Vial) 50 mcg PRN Q5MIN PRN IV MODERATE TO SEVERE PAIN; Start 05/08/20 at 09:30; Stop 05/09/20 at 09:29 Morphine Sulfate (Morphine Sulfate) 1 mg PRN Q10MIN PRN IV SEVERE PAIN 7-10; Start 05/08/20 at 09:30; Stop 05/09/20 at 09:29 Ringer's Solution 1,000 ml @ 30 mls/hr Q24H IV Last administered on 05/08/20at 08:00; Start 05/08/20 at 09:18; Stop 05/08/20 at 21:17 Lidocaine HCl (Xylocaine-Mpf 1% 2ml Vial) 2 ml PRN 1X PRN ID PRIOR TO IV START; Start 05/08/20 at 09:30; Stop 05/09/20 at 09:29 Hydromorphone HCl (Dilaudid) 0.5 mg PRN Q10MIN PRN IV SEV PAIN, Second choice; Start 05/08/20 at 09:30; Stop 05/09/20 at 09:29 Prochlorperazine Edisylate (Compazine) 5 mg PACU PRN PRN IV NAUSEA, MRX1; Start 05/08/20 at 09:30; Stop 05/09/20 at 09:29 Cefazolin Sodium (Ancef) 1 gm Q6H IVP ; Start 05/08/20 at 09:45; Stop 05/08/20 at 21:46; Status UNV Phenylephrine HCl (PHENYLEPHRINE in 0.9% NACL PF) 1 mg STK-MED ONCE IV ; Start 05/08/20 at 10:26; Stop 05/08/20 at 10:26; Status DC Phenylephrine HCl (Kannan-Synephrine Inj) 10 mg STK-MED ONCE .ROUTE ; Start 05/08/20 at 10:26; Stop 05/08/20 at 10:27; Status DC Sevoflurane (Ultane) 60 ml STK-MED ONCE IH ; Start 05/08/20 at 10:33; Stop 05/08/20 at 10:33; Status DC Ephedrine Sulfate (ePHEDrine PF IN SALINE SYRINGE) 50 mg STK-MED ONCE IV ; Start 05/08/20 at 10:40; Stop 05/08/20 at 10:40; Status DC Ondansetron HCl (Zofran) 4 mg STK-MED ONCE .ROUTE ; Start 05/08/20 at 10:47; Stop 05/08/20 at 10:47; Status DC Clindamycin Phosphate 50 ml @ 100 mls/hr Q8H IV ; Start 05/08/20 at 15:00; Stop 05/09/20 at 07:29 Enoxaparin Sodium (Lovenox 30mg Syringe) 30 mg DAILY SQ ; Start 05/09/20 at 09:00 Active Scripts Active Reported Benefiber (Wheat Dextrin) 1 Each Powd.pack 1 Each PO PRN DAILY PRN [Albuterol Inhaler] [Advair] Atrovent Hfa (Ipratropium [place]) 12.9 Gm Hfa.aer.ad 2 Puff IH QID [synthroid] [Diltiazem] Montelukast Sodium Tablet (Montelukast Sodium) 10 Mg Tablet 10 Mg PO HS Claritin-D 24 Hour Tablet (Loratadine/Pseudoephedrine) 1 Each Tab.er.24h 1 Tab PO DAILY 10 Days Flonase Allergy Relief (Fluticasone Propionate) 9.9 Ml [place].susp 2 Sprays NS DAILY Vitals/I & O Vital Sign - Last 24 Hours 05/07/20 05/07/20 05/07/20 05/07/20 16:35 18:30 19:39 20:09 Temp 97.7 97.7 Pulse 97 96 96 Resp 18 20 22 B/P (MAP) 165/83 (110) 124/74 (91) 92/57 (69) Pulse Ox 93 94 96 98 O2 Delivery Nasal Cannula Nasal Cannula O2 Flow Rate 2.0 2.0 05/07/20 05/07/20 05/07/20 05/07/20 20:39 21:45 22:28 23:00 Temp 97.5 97.5 Pulse 100 103 Resp 22 22 18 B/P (MAP) 120/65 (83) 103/62 (76) Pulse Ox 96 95 96 O2 Delivery Nasal Cannula Nasal Cannula O2 Flow Rate 2.0 2.0 2.0 05/07/20 05/08/20 05/08/20 05/08/20 23:00 03:00 05:29 06:10 Temp 97.5 97.5 Pulse 99 Resp 16 17 20 16 B/P (MAP) 116/63 (80) Pulse Ox 96 92 92 O2 Delivery Nasal Cannula Nasal Cannula Nasal Cannula Nasal Cannula O2 Flow Rate 2.0 2.0 2.0 2.0 05/08/20 05/08/20 05/08/20 05/08/20 07:00 08:30 09:00 11:40 Temp 97.9 99.5 97.9 99.5 Pulse 93 112 Resp 16 15 B/P (MAP) 129/66 (87) 179/79 Pulse Ox 95 95 O2 Delivery Nasal Cannula Nasal Cannula Nasal Cannula Mechanical Ventilator O2 Flow Rate 2.0 2.0 2.0 05/08/20 05/08/20 05/08/20 11:40 11:54 11:55 Temp 98.8 98.8 Pulse 109 104 Resp 12 12 B/P (MAP) 108/50 97/49 Pulse Ox 100 100 100 O2 Delivery Nasal Cannula Ventilator Nasal Cannula Intake and Output 05/07/20 05/07/20 05/08/20 15:00 23:00 07:00 Intake Total 200 ml Output Total 350 ml Balance -150 ml Justicifation of Admission Dx: Justifications for Admission: Justification of Admission Dx: Yes Fracture: Fracture ALFREDA DE LA CRUZ MD May 08, 2020 12:18
[2020-05-08 12:37] LABS: BASE EXCESS ABG 4 mmol/L (-3-3); HCO3 ABG 32 mmol/L (21-28); PO2 ABG 122 mmHg (65-108); SAT O2 ABG 98 % (92-99)
[2020-05-08 12:56] LABS: PCO2 ABG 63 mmHg (35-46)
[2020-05-08 12:57] LABS: FIO2 ABG 40
[2020-05-08] MEDS ORDERED: IV RINGERS,LACTATED 1000ML 1,000 ML IV ONE (13:00)
--- NOTE | 2020-05-08 13:39 | RAD ---
CHEST AP ONLY History: Reason: On ventilator. / Spl. Instructions: / History: Comparison: May 07, 2020 Findings: Interval intubation with endotracheal tube tip approximately 3.5 cm above the luis miguel. Hyperinflation. Right upper lung calcified nodule, likely prior granulous disease. No consolidation or pleural effusion. No pneumothorax. Small nodular opacity projecting between the left sixth and seventh posterior lateral ribs measures 5 mm, not definitely seen on previous imaging. Impression: 1. Interval intubation. 2. Hyperinflation. No new consolidation. 3. Small nodular opacity projecting over the left midlung, may relate to summation artifact or nodule. Recommend attention on follow-up imaging. Electronically signed by: Nicko Reza DO (05/08/2020 1:36 PM) [facility]
--- NOTE | 2020-05-08 13:48 | NUR ---
Patient received from OR after having fractured hip surgically repaired. Still on the ventilator at this time. Dr. Freitas notified of patient being here; he will see patient to determine need for continued ventilation.
--- NOTE | 2020-05-08 14:37 | CONS ---
DATE OF CONSULTATION: 05/08/2020 PULMONARY CONSULTATION ATTENDING PHYSICIAN: Dr. Julio Cesar Hi. REASON FOR CONSULTATION: Respiratory failure. HISTORY OF PRESENT ILLNESS: The patient is an 89-year-old female who has a history of COPD. She was brought into the hospital after she fell and suffered a left hip fracture. She was taken to the operating room. She had closed reduction and intramedullary nailing of the left intertrochanteric hip fracture. Post surgery, she did not wake up well. She did receive 100 mg of fentanyl and propofol. ABGs showed a pH of 7.32, pCO2 of 63, and a pO2 of 122 with a bicarbonate of 32. As a result, she was transferred to the ICU for ventilator management. At present, she does respond to commands, though she is hard of hearing. She does open her eyes. She does wiggle her toes and lifts her arms. She is on assist control mode, rate was increased from 12-16. Chest x-ray revealed hyperinflated lungs, but no obvious infiltrates. PAST MEDICAL HISTORY: Significant for history of COPD, unknown FEV1, likely severe, as she has chronic hypercapnia. History of breast cancer. PAST SURGICAL HISTORY: None reported recently. SOCIAL HISTORY: Smoked a pack every 2-3 days. ALLERGIES: All reviewed as listed in the MRAD. MEDICATIONS: Also reviewed as listed in the MRAD. REVIEW OF SYSTEMS: Unable to obtain from the patient. PHYSICAL EXAMINATION: VITAL SIGNS: Stable. Blood pressure 119/63. Pulse in the one teens. Afebrile. GENERAL: She does respond to commands. On assist control mode. NECK: Supple. LUNGS: With diminished breath sounds. CARDIOVASCULAR: Regular rate. ABDOMEN: Soft. EXTREMITIES: With no pitting edema. LABORATORY DATA: Reviewed. Sodium 143, potassium 3.8, BUN 18, and creatinine 1.1. INR 0.9. ABGs as discussed in my history of present illness. IMPRESSION: 1. [id number] hypercapnic respiratory failure which is expected in a patient who underwent left hip surgery and received 100 mg of fentanyl and propofol. Her ABG shows mildly decompensated respiratory acidosis. 2. Underlying chronic obstructive pulmonary disease. 3. Left intertrochanteric hip fracture, status post closed reduction and intramedullary nailing of the left intertrochanteric hip fracture. RECOMMENDATIONS: 1. The patient seems to be responding slowly. Once she is more awake, we will do a CPAP trial. She may come off the vent tonight. 2. Continue DuoNeb. 3. Lovenox for DVT prophylaxis. 4. Empiric antibiotic per Ortho. 5. Continue supportive care. 6. Discussed with RN and RT. We will follow along with you. Critical care time 33 minutes. YIN ANGELO MD DR: LALO/nicole JOB#: [id number] / [id number]
--- NOTE | 2020-05-08 15:12 | NUR ---
RT notified to switch patient to cpap trial to determine if she can be extubated. Patient requesting ET tube out and agrees to remain calm
[2020-05-08] MEDS: IPRATRPIUM/ALBUTEROL 0.5/2.5MG 3 ML NEBU. NEB SCH ×2 (16:00→20:08)
[2020-05-08 16:18] LABS: BASE EXCESS ABG 6 mmol/L (-3-3); HCO3 ABG 33 mmol/L (21-28); PCO2 ABG 59 mmHg (35-46); PO2 ABG 99 mmHg (65-108); SAT O2 ABG 97 % (92-99)
[2020-05-08 16:20] LABS: FIO2 ABG 35
[2020-05-08] MEDS: CLINDAMYCIN 600MG PREMIX 50 ML IV SCH ×2 (16:50→22:48)
--- NOTE | 2020-05-08 18:30 | NUR ---
Patients oxygen saturation down to 84%, increased O2 NC to 4 lpm with minimal increase. Patient breathing predominantly through mouth. Put on 35% Ventimask and O2 back to 95% quickly.
--- NOTE | 2020-05-08 20:05 | NUR ---
Paged Dr Moralez, returned page-notified of decerased urine output and low SBP. Order received for HIMs to manage all medical/non-surgical issues and Pulm to manage all respiratory issues. Paged Dr Xiong.
--- NOTE | 2020-05-08 20:10 | NUR ---
Dr Xiong returned page, notified of urine output since surgery has only been 50CC, SBP at 1999 85 with MAP<65, and patient does not have any IVF running. Orders received to start NS at 100CC/HR, give NS 250CC bolus, if UO does not improve give additional NS 250CC bolus, and if UO still not improved, give NS 500CC bolus. See order, vital signs, I/O.
[2020-05-08] MEDS ORDERED: IV NORMAL SALINE 500ML BAG 500 ML IV ONE ×2 (20:15→23:00)
[2020-05-08] MEDS: IV NORMAL SALINE 1000ML BAG 1,000 ML IV SCH (20:27)
[2020-05-08] MEDS ORDERED: IV NORMAL SALINE 250ML 250 ML IV ONE (21:30)
[2020-05-09] VITALS (15 sets, daily range): BP systolic 93–159; BP diastolic 42–77
--- NOTE | 2020-05-09 01:40 | NUR ---
Patient's UO continues to be minimal after total 1000cc NS bolus and NS IVF at 100CC/HR, paged Dr Xiong. DR Xiong returned page, notified of continued low UO, love irrigated without difficulty and immediate return of irrigant, last SBP 93 and MAP 59--orders received to give Albumin 5% 500cc TRO 4HRS and an additional 500CC NS bolus now, consult Dr Zayas in am, and Renal sonogram in am. See orders, vital signs, I/O.
[2020-05-09] MEDS ORDERED: ALBUMIN HUMAN 5% 500 ML IV ONE (02:00)
[2020-05-09] MEDS ORDERED: IV NORMAL SALINE 500ML BAG 500 ML IV ONE (02:00)
[2020-05-09 05:02] LABS: BASO % 0 % (0-3); EOS % 0 % (0-3); HEMOGLOBIN 7.9 g/dL (12.0-15.5); LYMPH # 0.6 x10^3/uL (1.0-4.8); LYMPH % 5 % (24-48); MEAN CORPUSCULAR HEMOGLOBIN 29 pg (25-35); MEAN CORPUSCULAR HGB CONC 33 g/dL (31-37); MEAN CORPUSCULAR VOLUME 89 fL (79-100); MONO # 1.5 x10^3/uL (0.0-1.1); MONO % 13 % (0-9); NEUT # 9.2 x10^3/uL (1.8-7.7); NEUT % 82 % (31-73); PLATELET COUNT 148 x10^3/uL (140-400); RED CELL DISTRIBUTION WIDTH 15.4 % (11.5-14.5); WHITE BLOOD COUNT 11.3 x10^3/uL (4.0-11.0)
[2020-05-09 05:13] LABS: CALCIUM 7.7 mg/dL (8.5-10.1); CREATININE 1.6 mg/dL (0.6-1.0); GFR 30.5; POTASSIUM 4.4 mmol/L (3.5-5.1)
[2020-05-09] MEDS: CLINDAMYCIN 600MG PREMIX 50 ML IV SCH (06:38)
[2020-05-09] MEDS: IPRATRPIUM/ALBUTEROL 0.5/2.5MG 3 ML NEBU. NEB SCH ×4 (07:40→20:54)
--- NOTE | 2020-05-09 09:26 | PDOC ---
ORTHO PROGRESS NOTES Subjective She had low output last night, she has been doing much better lately. She was extubated. Vitals Vital Signs Date Time Temp Pulse Resp B/P (MAP) Pulse Ox O2 Delivery O2 Flow Rate FiO2 05/09/20 07:44 95 Nasal Cannula 2.0 05/09/20 07:00 122 28 148/61 (90) 05/09/20 04:00 98.5 98.5 Labs Laboratory Tests Test 05/07/20 17:15 05/08/20 00:30 05/08/20 01:35 05/08/20 03:00 White Blood Count 4.7 x10^3/uL (4.0-11.0) Red Blood Count 4.46 x10^6/uL (3.50-5.40) Hemoglobin 12.9 g/dL (12.0-15.5) Hematocrit 38.8 % (36.0-47.0) Mean Corpuscular Volume 87 fL (79-100) Mean Corpuscular Hemoglobin 29 pg (25-35) Mean Corpuscular Hemoglobin Concent 33 g/dL (31-37) Red Cell Distribution Width 14.9 % (11.5-14.5) Platelet Count 232 x10^3/uL (140-400) Neutrophils (%) (Auto) 73 % (31-73) Lymphocytes (%) (Auto) 12 % (24-48) Monocytes (%) (Auto) 12 % (0-9) Eosinophils (%) (Auto) 2 % (0-3) Basophils (%) (Auto) 1 % (0-3) Neutrophils # (Auto) 3.4 x10^3/uL (1.8-7.7) Lymphocytes # (Auto) 0.6 x10^3/uL (1.0-4.8) Monocytes # (Auto) 0.5 x10^3/uL (0.0-1.1) Eosinophils # (Auto) 0.1 x10^3/uL (0.0-0.7) Basophils # (Auto) 0.0 x10^3/uL (0.0-0.2) Prothrombin Time 11.9 SEC (11.7-14.0) 12.1 SEC (11.7-14.0) Prothromb Time International Ratio 0.9 (0.8-1.1) 0.9 (0.8-1.1) Activated Partial Thromboplast Time 29 SEC (24-38) Sodium Level 141 mmol/L (136-145) 143 mmol/L (136-145) Potassium Level 3.1 mmol/L (3.5-5.1) 3.8 mmol/L (3.5-5.1) Chloride Level 100 mmol/L (98-107) 101 mmol/L (98-107) Carbon Dioxide Level 39 mmol/L (21-32) 38 mmol/L (21-32) Anion Gap 2 (6-14) 4 (6-14) Blood Urea Nitrogen 12 mg/dL (7-20) 18 mg/dL (7-20) Creatinine 0.9 mg/dL (0.6-1.0) 1.1 mg/dL (0.6-1.0) Estimated GFR (Cockcroft-Gault) 59.2 47.0 BUN/Creatinine Ratio 13 (6-20) Glucose Level 117 mg/dL (70-99) 161 mg/dL (70-99) Calcium Level 8.7 mg/dL (8.5-10.1) 8.4 mg/dL (8.5-10.1) Total Bilirubin 0.4 mg/dL (0.2-1.0) Aspartate Amino Transf (AST/SGOT) 24 U/L (15-37) Alanine Aminotransferase (ALT/SGPT) 21 U/L (14-59) Alkaline Phosphatase 83 U/L (46-116) Total Protein 6.3 g/dL (6.4-8.2) Albumin 2.9 g/dL (3.4-5.0) Albumin/Globulin Ratio 0.9 (1.0-1.7) Nasal Screen MRSA (PCR) Negative (NEGATIVE) 25-Hydroxy Vitamin D Total 43.7 ng/mL (30-100) Urine Collection Type Unknown Urine Color Yellow Urine Clarity Clear Urine pH 6.5 (<5.0-8.0) Urine Specific [place] 1.020 (1.000-1.030) Urine Protein 30 mg/dL (NEG-TRACE) Urine Glucose (UA) Negative mg/dL (NEG) Urine Ketones (Stick) Negative mg/dL (NEG) Urine Blood Small (NEG) Urine Nitrite Negative (NEG) Urine Bilirubin Small (NEG) Urine Urobilinogen Dipstick 0.2 mg/dL (0.2 mg/dL) Urine Leukocyte Esterase Negative (NEG) Urine RBC 11-20 /HPF (0-2) Urine WBC 1-4 /HPF (0-4) Urine Squamous Epithelial Cells Few /LPF Urine Bacteria 0 /HPF (0-FEW) Urine Hyaline Casts Few /HPF Urine Mucus Marked /LPF Test 05/08/20 07:45 05/08/20 12:03 05/08/20 16:10 05/09/20 04:40 SARS-CoV-2 Antigen (Rapid) Negative (NEGATIVE) O2 Saturation 98 % (92-99) 97 % (92-99) Arterial Blood pH 7.32 (7.35-7.45) 7.36 (7.35-7.45) Arterial Blood pCO2 at Patient Temp 63 mmHg (35-46) 59 mmHg (35-46) Arterial Blood pO2 at Patient Temp 122 mmHg (65-108) 99 mmHg (65-108) Arterial Blood HCO3 32 mmol/L (21-28) 33 mmol/L (21-28) Arterial Blood Base Excess 4 mmol/L (-3-3) 6 mmol/L (-3-3) FiO2 40 35 White Blood Count 11.3 x10^3/uL (4.0-11.0) Red Blood Count 2.70 x10^6/uL (3.50-5.40) Hemoglobin 7.9 g/dL (12.0-15.5) Hematocrit 24.0 % (36.0-47.0) Mean Corpuscular Volume 89 fL (79-100) Mean Corpuscular Hemoglobin 29 pg (25-35) Mean Corpuscular Hemoglobin Concent 33 g/dL (31-37) Red Cell Distribution Width 15.4 % (11.5-14.5) Platelet Count 148 x10^3/uL (140-400) Neutrophils (%) (Auto) 82 % (31-73) Lymphocytes (%) (Auto) 5 % (24-48) Monocytes (%) (Auto) 13 % (0-9) Eosinophils (%) (Auto) 0 % (0-3) Basophils (%) (Auto) 0 % (0-3) Neutrophils # (Auto) 9.2 x10^3/uL (1.8-7.7) Lymphocytes # (Auto) 0.6 x10^3/uL (1.0-4.8) Monocytes # (Auto) 1.5 x10^3/uL (0.0-1.1) Eosinophils # (Auto) 0.0 x10^3/uL (0.0-0.7) Basophils # (Auto) 0.0 x10^3/uL (0.0-0.2) Sodium Level 141 mmol/L (136-145) Potassium Level 4.4 mmol/L (3.5-5.1) Chloride Level 106 mmol/L (98-107) Carbon Dioxide Level 32 mmol/L (21-32) Anion Gap 3 (6-14) Blood Urea Nitrogen 31 mg/dL (7-20) Creatinine 1.6 mg/dL (0.6-1.0) Estimated GFR (Cockcroft-Gault) 30.5 Glucose Level 98 mg/dL (70-99) Calcium Level 7.7 mg/dL (8.5-10.1) Laboratory Tests Test 05/08/20 12:03 05/08/20 16:10 05/09/20 04:40 O2 Saturation 98 % (92-99) 97 % (92-99) Arterial Blood pH 7.32 (7.35-7.45) 7.36 (7.35-7.45) Arterial Blood pCO2 at Patient Temp 63 mmHg (35-46) 59 mmHg (35-46) Arterial Blood pO2 at Patient Temp 122 mmHg (65-108) 99 mmHg (65-108) Arterial Blood HCO3 32 mmol/L (21-28) 33 mmol/L (21-28) Arterial Blood Base Excess 4 mmol/L (-3-3) 6 mmol/L (-3-3) FiO2 40 35 White Blood Count 11.3 x10^3/uL (4.0-11.0) Red Blood Count 2.70 x10^6/uL (3.50-5.40) Hemoglobin 7.9 g/dL (12.0-15.5) Hematocrit 24.0 % (36.0-47.0) Mean Corpuscular Volume 89 fL (79-100) Mean Corpuscular Hemoglobin 29 pg (25-35) Mean Corpuscular Hemoglobin Concent 33 g/dL (31-37) Red Cell Distribution Width 15.4 % (11.5-14.5) Platelet Count 148 x10^3/uL (140-400) Neutrophils (%) (Auto) 82 % (31-73) Lymphocytes (%) (Auto) 5 % (24-48) Monocytes (%) (Auto) 13 % (0-9) Eosinophils (%) (Auto) 0 % (0-3) Basophils (%) (Auto) 0 % (0-3) Neutrophils # (Auto) 9.2 x10^3/uL (1.8-7.7) Lymphocytes # (Auto) 0.6 x10^3/uL (1.0-4.8) Monocytes # (Auto) 1.5 x10^3/uL (0.0-1.1) Eosinophils # (Auto) 0.0 x10^3/uL (0.0-0.7) Basophils # (Auto) 0.0 x10^3/uL (0.0-0.2) Sodium Level 141 mmol/L (136-145) Potassium Level 4.4 mmol/L (3.5-5.1) Chloride Level 106 mmol/L (98-107) Carbon Dioxide Level 32 mmol/L (21-32) Anion Gap 3 (6-14) Blood Urea Nitrogen 31 mg/dL (7-20) Creatinine 1.6 mg/dL (0.6-1.0) Estimated GFR (Cockcroft-Gault) 30.5 Glucose Level 98 mg/dL (70-99) Calcium Level 7.7 mg/dL (8.5-10.1) Notes She is awake and alert. She does not answer asked questions appropriately. She is not oriented to place or time. Dressing is intact over her left hip. Expected amount of drainage is present. Toes are warm. Assessment and Plan She can participate in PT and OT when she is out of the ICU. She should continue anticoagulation. I will follow along. DUSTIN TOVAR II, MD May 09, 2020 09:26
[2020-05-09] MEDS: ENOXAPARIN 30 MG/0.3 ML SYRINGE. SQ SCH (09:41)
[2020-05-09] MEDS: IV NORMAL SALINE 1000ML BAG 1,000 ML IV SCH (09:41)
--- NOTE | 2020-05-09 09:56 | PDOC ---
PULMONARY PROGRESS NOTES Subjective extubated 05/08 on 3liters N/C no SOA, or cough no concerns from nursing overnight Vitals Vital Signs Date Time Temp Pulse Resp B/P (MAP) Pulse Ox O2 Delivery O2 Flow Rate FiO2 05/09/20 07:44 95 Nasal Cannula 2.0 05/09/20 07:00 122 28 148/61 (90) 05/09/20 04:00 98.5 98.5 ROS: No Nausea, No Chest Pain, No Abdominal Pain, No Increase Cough General: Alert Lungs: Clear Cardiovascular: S1, S2 Abdomen: Soft, Non-tender Neuro Exam: Alert Extremities: No Edema Skin: Warm Labs Laboratory Tests Test 05/07/20 17:15 05/08/20 00:30 05/08/20 01:35 05/08/20 03:00 White Blood Count 4.7 x10^3/uL (4.0-11.0) Red Blood Count 4.46 x10^6/uL (3.50-5.40) Hemoglobin 12.9 g/dL (12.0-15.5) Hematocrit 38.8 % (36.0-47.0) Mean Corpuscular Volume 87 fL (79-100) Mean Corpuscular Hemoglobin 29 pg (25-35) Mean Corpuscular Hemoglobin Concent 33 g/dL (31-37) Red Cell Distribution Width 14.9 % (11.5-14.5) Platelet Count 232 x10^3/uL (140-400) Neutrophils (%) (Auto) 73 % (31-73) Lymphocytes (%) (Auto) 12 % (24-48) Monocytes (%) (Auto) 12 % (0-9) Eosinophils (%) (Auto) 2 % (0-3) Basophils (%) (Auto) 1 % (0-3) Neutrophils # (Auto) 3.4 x10^3/uL (1.8-7.7) Lymphocytes # (Auto) 0.6 x10^3/uL (1.0-4.8) Monocytes # (Auto) 0.5 x10^3/uL (0.0-1.1) Eosinophils # (Auto) 0.1 x10^3/uL (0.0-0.7) Basophils # (Auto) 0.0 x10^3/uL (0.0-0.2) Prothrombin Time 11.9 SEC (11.7-14.0) 12.1 SEC (11.7-14.0) Prothromb Time International Ratio 0.9 (0.8-1.1) 0.9 (0.8-1.1) Activated Partial Thromboplast Time 29 SEC (24-38) Sodium Level 141 mmol/L (136-145) 143 mmol/L (136-145) Potassium Level 3.1 mmol/L (3.5-5.1) 3.8 mmol/L (3.5-5.1) Chloride Level 100 mmol/L (98-107) 101 mmol/L (98-107) Carbon Dioxide Level 39 mmol/L (21-32) 38 mmol/L (21-32) Anion Gap 2 (6-14) 4 (6-14) Blood Urea Nitrogen 12 mg/dL (7-20) 18 mg/dL (7-20) Creatinine 0.9 mg/dL (0.6-1.0) 1.1 mg/dL (0.6-1.0) Estimated GFR (Cockcroft-Gault) 59.2 47.0 BUN/Creatinine Ratio 13 (6-20) Glucose Level 117 mg/dL (70-99) 161 mg/dL (70-99) Calcium Level 8.7 mg/dL (8.5-10.1) 8.4 mg/dL (8.5-10.1) Total Bilirubin 0.4 mg/dL (0.2-1.0) Aspartate Amino Transf (AST/SGOT) 24 U/L (15-37) Alanine Aminotransferase (ALT/SGPT) 21 U/L (14-59) Alkaline Phosphatase 83 U/L (46-116) Total Protein 6.3 g/dL (6.4-8.2) Albumin 2.9 g/dL (3.4-5.0) Albumin/Globulin Ratio 0.9 (1.0-1.7) Nasal Screen MRSA (PCR) Negative (NEGATIVE) 25-Hydroxy Vitamin D Total 43.7 ng/mL (30-100) Urine Collection Type Unknown Urine Color Yellow Urine Clarity Clear Urine pH 6.5 (<5.0-8.0) Urine Specific [place] 1.020 (1.000-1.030) Urine Protein 30 mg/dL (NEG-TRACE) Urine Glucose (UA) Negative mg/dL (NEG) Urine Ketones (Stick) Negative mg/dL (NEG) Urine Blood Small (NEG) Urine Nitrite Negative (NEG) Urine Bilirubin Small (NEG) Urine Urobilinogen Dipstick 0.2 mg/dL (0.2 mg/dL) Urine Leukocyte Esterase Negative (NEG) Urine RBC 11-20 /HPF (0-2) Urine WBC 1-4 /HPF (0-4) Urine Squamous Epithelial Cells Few /LPF Urine Bacteria 0 /HPF (0-FEW) Urine Hyaline Casts Few /HPF Urine Mucus Marked /LPF Test 05/08/20 07:45 05/08/20 12:03 05/08/20 16:10 05/09/20 04:40 SARS-CoV-2 Antigen (Rapid) Negative (NEGATIVE) O2 Saturation 98 % (92-99) 97 % (92-99) Arterial Blood pH 7.32 (7.35-7.45) 7.36 (7.35-7.45) Arterial Blood pCO2 at Patient Temp 63 mmHg (35-46) 59 mmHg (35-46) Arterial Blood pO2 at Patient Temp 122 mmHg (65-108) 99 mmHg (65-108) Arterial Blood HCO3 32 mmol/L (21-28) 33 mmol/L (21-28) Arterial Blood Base Excess 4 mmol/L (-3-3) 6 mmol/L (-3-3) FiO2 40 35 White Blood Count 11.3 x10^3/uL (4.0-11.0) Red Blood Count 2.70 x10^6/uL (3.50-5.40) Hemoglobin 7.9 g/dL (12.0-15.5) Hematocrit 24.0 % (36.0-47.0) Mean Corpuscular Volume 89 fL (79-100) Mean Corpuscular Hemoglobin 29 pg (25-35) Mean Corpuscular Hemoglobin Concent 33 g/dL (31-37) Red Cell Distribution Width 15.4 % (11.5-14.5) Platelet Count 148 x10^3/uL (140-400) Neutrophils (%) (Auto) 82 % (31-73) Lymphocytes (%) (Auto) 5 % (24-48) Monocytes (%) (Auto) 13 % (0-9) Eosinophils (%) (Auto) 0 % (0-3) Basophils (%) (Auto) 0 % (0-3) Neutrophils # (Auto) 9.2 x10^3/uL (1.8-7.7) Lymphocytes # (Auto) 0.6 x10^3/uL (1.0-4.8) Monocytes # (Auto) 1.5 x10^3/uL (0.0-1.1) Eosinophils # (Auto) 0.0 x10^3/uL (0.0-0.7) Basophils # (Auto) 0.0 x10^3/uL (0.0-0.2) Sodium Level 141 mmol/L (136-145) Potassium Level 4.4 mmol/L (3.5-5.1) Chloride Level 106 mmol/L (98-107) Carbon Dioxide Level 32 mmol/L (21-32) Anion Gap 3 (6-14) Blood Urea Nitrogen 31 mg/dL (7-20) Creatinine 1.6 mg/dL (0.6-1.0) Estimated GFR (Cockcroft-Gault) 30.5 Glucose Level 98 mg/dL (70-99) Calcium Level 7.7 mg/dL (8.5-10.1) Laboratory Tests Test 05/08/20 12:03 05/08/20 16:10 05/09/20 04:40 O2 Saturation 98 % (92-99) 97 % (92-99) Arterial Blood pH 7.32 (7.35-7.45) 7.36 (7.35-7.45) Arterial Blood pCO2 at Patient Temp 63 mmHg (35-46) 59 mmHg (35-46) Arterial Blood pO2 at Patient Temp 122 mmHg (65-108) 99 mmHg (65-108) Arterial Blood HCO3 32 mmol/L (21-28) 33 mmol/L (21-28) Arterial Blood Base Excess 4 mmol/L (-3-3) 6 mmol/L (-3-3) FiO2 40 35 White Blood Count 11.3 x10^3/uL (4.0-11.0) Red Blood Count 2.70 x10^6/uL (3.50-5.40) Hemoglobin 7.9 g/dL (12.0-15.5) Hematocrit 24.0 % (36.0-47.0) Mean Corpuscular Volume 89 fL (79-100) Mean Corpuscular Hemoglobin 29 pg (25-35) Mean Corpuscular Hemoglobin Concent 33 g/dL (31-37) Red Cell Distribution Width 15.4 % (11.5-14.5) Platelet Count 148 x10^3/uL (140-400) Neutrophils (%) (Auto) 82 % (31-73) Lymphocytes (%) (Auto) 5 % (24-48) Monocytes (%) (Auto) 13 % (0-9) Eosinophils (%) (Auto) 0 % (0-3) Basophils (%) (Auto) 0 % (0-3) Neutrophils # (Auto) 9.2 x10^3/uL (1.8-7.7) Lymphocytes # (Auto) 0.6 x10^3/uL (1.0-4.8) Monocytes # (Auto) 1.5 x10^3/uL (0.0-1.1) Eosinophils # (Auto) 0.0 x10^3/uL (0.0-0.7) Basophils # (Auto) 0.0 x10^3/uL (0.0-0.2) Sodium Level 141 mmol/L (136-145) Potassium Level 4.4 mmol/L (3.5-5.1) Chloride Level 106 mmol/L (98-107) Carbon Dioxide Level 32 mmol/L (21-32) Anion Gap 3 (6-14) Blood Urea Nitrogen 31 mg/dL (7-20) Creatinine 1.6 mg/dL (0.6-1.0) Estimated GFR (Cockcroft-Gault) 30.5 Glucose Level 98 mg/dL (70-99) Calcium Level 7.7 mg/dL (8.5-10.1) Medications Active Scripts Medications Dose Route/Sig Max Daily Dose Days Date Category Benefiber (Wheat Dextrin) 1 Each Powd.pack 1 Each PO PRN DAILY PRN 05/08/20 Reported [Albuterol Inhaler] 05/08/20 Reported [Advair] 05/08/20 Reported Atrovent Hfa (Ipratropium Pease) 12.9 Gm Hfa.aer.ad 2 Puff IH QID 05/08/20 Reported [synthroid] 05/08/20 Reported [Diltiazem] 05/08/20 Reported Montelukast Sodium Tablet (Montelukast Sodium) 10 Mg Tablet 10 Mg PO HS 05/08/20 Reported Claritin-D 24 Hour Tablet (Loratadine/Pseudoephedrine) 1 Each Tab.er.24h 1 Tab PO DAILY 10 05/08/20 Reported Flonase Allergy Relief (Fluticasone Propionate) 9.9 Ml [place].susp 2 Sprays NS DAILY 05/08/20 Reported Impression . IMPRESSION: 1. Frumj-ry-brwqqta hypercapnic respiratory failure which is expected in a patient who underwent left hip surgery and received 100 mg of fentanyl and propofol. Her ABG shows mildly decompensated respiratory acidosis.-- improved 2. Underlying chronic obstructive pulmonary disease. 3. Left intertrochanteric hip fracture, status post closed reduction and intramedullary nailing of the left intertrochanteric hip fracture. 4. THANIA Plan . RECOMMENDATIONS: 1. Extubated 05/08, now on 3 liters N/C tolerating well 2. Continue DuoNeb and pulmicort 3. Lovenox for DVT prophylaxis. 4. Empiric antibiotic per Ortho. 5. Continue supportive care. 6. Discussed with RN and RT. We will follow along with you. May transfer out of ICU if ok with other consults YIN ANGELO MD May 09, 2020 09:56
--- NOTE | 2020-05-09 10:00 | NUR ---
SS following up with discharge planning. SS reviewed pt chart and discussed with pt RN. Pt is from home and daughter and granddaughter assist her. Pt currently requiring oxygen. Pt had left hip surgery on 05/08/2020. COVID19 negative. PT/OT ordered. Per RN, pt transferring up today. SS will continue to follow for discharge planning.
[2020-05-09] MEDS: HYDROmorphone 2 MG/ML VIAL IV PRN ×2 (10:46→11:27)
--- NOTE | 2020-05-09 12:14 | PDOC ---
[facility] [facility] PROGRESS NOTE Chief Complaint Chief Complaint Acute comminuted intertrochanteric left hip fracture which is moderately displaced. Lesser trochanter is medially displaced. Mechanical fall Mild osteopenia COPD Acute hypokalemia Hypercapnia Left mid lung nodule Appreciate Ortho recommendations for postoperative care and advancing diet Appreciate pulmonary recommendations Dementia prevention protocol Lovenox for DVT prophylaxis Protonix GI prophylaxis ADA diet Full code Discussed with RN and SW Patient will need outpatient follow-up with repeat imaging for left lung nodule Dispo transfer to surgical floor Total critical care time spent 35 minutes History of Present Illness History of Present Illness 05/09/2020 Patient's extubated and saturating well on room air. Pain is well controlled. Patient has baseline dementia. She is not agitated or confused. She is alert and awake oriented x2. Patient's chart, labs, images were reviewed and discussed with RN Vitals/I&O Vitals/I&O: Vital Signs Date Time Temp Pulse Resp B/P (MAP) Pulse Ox O2 Delivery O2 Flow Rate FiO2 05/09/20 12:00 98.2 114 15 112/53 (72) 99 Nasal Cannula 3.0 98.2 I & O 05/08/20 05/08/20 05/09/20 15:00 23:00 07:00 Intake Total 1300 ml 600 ml 2208 ml Output Total 130 ml 80 ml 185 ml Balance 1170 ml 520 ml 2023 ml Physical Exam Physical Exam: GEN: No apparent distress. Alert and oriented HEENT: Normal cephalic, atraumatic, external auditory canals are patent NECK: Supple, no JVD, no thyromegaly was noted LUNGS: Bilateral crackles HEART: RRR, S1, S2 present. Peripheral pulses intact, no obvious murmurs noted ABDOMEN: Soft, nontender. Positive bowel sounds, no organomegaly, normal bowel sounds EXTREMITIES: No bilateral pedal edema. Dressings are clean dry intact. Hips is stable General: Alert, mild distress, Other (Patient does not answer ask any questions, does not respond to questions) Heart: Regular rate Lungs: Clear Abdomen: Soft, No tenderness Extremities: No edema, Normal pulses Labs Labs: Laboratory Tests Test 05/08/20 16:10 05/09/20 04:40 O2 Saturation 97 % (92-99) Arterial Blood pH 7.36 (7.35-7.45) Arterial Blood pCO2 at Patient Temp 59 mmHg (35-46) Arterial Blood pO2 at Patient Temp 99 mmHg (65-108) Arterial Blood HCO3 33 mmol/L (21-28) Arterial Blood Base Excess 6 mmol/L (-3-3) FiO2 35 White Blood Count 11.3 x10^3/uL (4.0-11.0) Red Blood Count 2.70 x10^6/uL (3.50-5.40) Hemoglobin 7.9 g/dL (12.0-15.5) Hematocrit 24.0 % (36.0-47.0) Mean Corpuscular Volume 89 fL (79-100) Mean Corpuscular Hemoglobin 29 pg (25-35) Mean Corpuscular Hemoglobin Concent 33 g/dL (31-37) Red Cell Distribution Width 15.4 % (11.5-14.5) Platelet Count 148 x10^3/uL (140-400) Neutrophils (%) (Auto) 82 % (31-73) Lymphocytes (%) (Auto) 5 % (24-48) Monocytes (%) (Auto) 13 % (0-9) Eosinophils (%) (Auto) 0 % (0-3) Basophils (%) (Auto) 0 % (0-3) Neutrophils # (Auto) 9.2 x10^3/uL (1.8-7.7) Lymphocytes # (Auto) 0.6 x10^3/uL (1.0-4.8) Monocytes # (Auto) 1.5 x10^3/uL (0.0-1.1) Eosinophils # (Auto) 0.0 x10^3/uL (0.0-0.7) Basophils # (Auto) 0.0 x10^3/uL (0.0-0.2) Sodium Level 141 mmol/L (136-145) Potassium Level 4.4 mmol/L (3.5-5.1) Chloride Level 106 mmol/L (98-107) Carbon Dioxide Level 32 mmol/L (21-32) Anion Gap 3 (6-14) Blood Urea Nitrogen 31 mg/dL (7-20) Creatinine 1.6 mg/dL (0.6-1.0) Estimated GFR (Cockcroft-Gault) 30.5 Glucose Level 98 mg/dL (70-99) Calcium Level 7.7 mg/dL (8.5-10.1) Comment Review of Relevant I have reviewed the following items cameron (where applicable) has been applied. Medications: Current Medications Medications (Trade) Dose Ordered Sig/Nneka Route PRN Reason Start Time Stop Time Status Last Admin Dose Admin Clindamycin Phosphate 50 ml @ 100 mls/hr Q8H IV 05/08/20 15:00 05/09/20 07:29 DC 05/09/20 06:38 Enoxaparin Sodium (Lovenox 30mg Syringe) 30 mg DAILY SQ 05/09/20 09:00 05/09/20 09:41 Albuterol/ Ipratropium (Duoneb) 3 ml RTQID NEB 05/08/20 16:00 05/09/20 07:40 Ringer's Solution 1,000 ml @ 250 mls/hr Q4H ONCE IV 05/08/20 13:00 05/08/20 16:59 DC 05/08/20 12:58 Sodium Chloride 500 ml @ 250 mls/hr 1X ONCE IV 05/08/20 20:15 05/08/20 22:14 DC 05/08/20 20:15 Sodium Chloride 1,000 ml @ 100 mls/hr Q10H IV 05/08/20 20:15 05/09/20 09:41 Sodium Chloride 250 ml @ 250 mls/hr 1X ONCE IV 05/08/20 21:30 05/08/20 22:29 DC 05/08/20 21:23 Sodium Chloride 500 ml @ 500 mls/hr 1X ONCE IV 05/08/20 23:00 05/08/20 23:59 DC 05/08/20 23:27 Albumin Human 500 ml @ 125 mls/hr 1X ONCE IV 05/09/20 02:00 05/09/20 05:59 DC 05/09/20 02:00 Sodium Chloride 500 ml @ 500 mls/hr 1X ONCE IV 05/09/20 02:00 05/09/20 02:59 DC 05/09/20 02:00 Justicifation of Admission Dx: Justifications for Admission: Justification of Admission Dx: Yes Fracture: Fracture MARIAH MCCARTNEY MD May 09, 2020 12:14
[2020-05-09] MEDS: BUDESONIDE 0.5 MG/2 ML NEBU. NEB SCH ×2 (12:15→20:54)
--- NOTE | 2020-05-09 12:48 | PDOC2 ---
CONSULT Date of Consult Date of Consult DATE: 05/09/20 TIME: 12:44 Reason for Consult Reason for Consult: THANIA Referring Physician Referring Physician: SHERRILL Identification/Chief Complaint Chief Complaint FALL Source Source: Chart review History of Present Illness Reason for Visit: THIS IS AN 89 YR OLD WITH A FALL AND THEN SUSTAINED A L HIP FRACTURE. SHE S/P ORIF. WAS INTUBATED POST OP AND NOW EXTUBATED. NO CKD HX. CR WAS NORMAL NOW UP TO 1.6. RENAL SONO PENDING. NO OTHER HX EXCEPT SOME INCONTINENCE. UA IS CLEAR AND NO HEMODYNAMIC INSTABILITY AT THIS TIME. Past Medical History Cardiovascular: HTN Pulmonary: COPD CENTRAL NERVOUS SYSTEM: Dementia ENT: Other (Uses hearing aids) Renal/: No pertinent hx, Urinary Incontinence Past Surgical History Past Surgical History: No pertinent history Family History Family History: No Significant, Heart Disease Social History Quit ALCOHOL: none Lives: with Family Current Medications Current Medications Current Medications Fentanyl Citrate (Fentanyl 2ml Vial) 25 mcg 1X ONCE IVP Last administered on 05/07/20at 18:12; Start 05/07/20 at 17:45; Stop 05/07/20 at 17:46; Status DC Albuterol Sulfate (Ventolin Neb Soln) 2.5 mg 1X ONCE NEB Last administered on 05/07/20at 18:28; Start 05/07/20 at 17:45; Stop 05/07/20 at 17:46; Status DC Fentanyl Citrate (Fentanyl 2ml Vial) 50 mcg 1X ONCE IVP Last administered on 05/07/20at 18:47; Start 05/07/20 at 18:45; Stop 05/07/20 at 18:46; Status DC Potassium Chloride (Klor-Con) 40 meq 1X PRN PO PER PROTOCOL; Start 05/07/20 at 20:30 Potassium Chloride/Water 100 ml @ 100 mls/hr PRN Q1HR PRN IV SEE COMMENTS; Start 05/07/20 at 20:30 Potassium Phos/ Sodium Phos (Phos-Nak) 1 pkt PRN BID PRN PO SEE COMMENTS; Start 05/07/20 at 21:00 Potassium Bicarbonate (Potassium Effervescent Tablet) 40 meq PRN Q4HRS PRN PO SEE COMMENTS; Start 05/07/20 at 20:30 Potassium Chloride/Water 100 ml @ 100 mls/hr PRN Q1HR PRN IV SEE COMMENTS; Start 05/07/20 at 20:30 Hydromorphone HCl (Dilaudid) 0.2 mg PRN Q1HR PRN IV PAIN Last administered on 05/09/20at 11:27; Start 05/07/20 at 20:30 Potassium Chloride (Klor-Con) 40 meq 1X ONCE PO Last administered on 05/07/20at 22:27; Start 05/07/20 at 21:00; Stop 05/07/20 at 21:01; Status DC Albuterol Sulfate (Ventolin Neb Soln) 2.5 mg PRN QID PRN NEB SHORTNESS OF BREATH Last administered on 05/08/20at 12:42; Start 05/07/20 at 21:45 Enoxaparin Sodium (Lovenox 30mg Syringe) 30 mg 1X ONCE SQ ; Start 05/07/20 at 21:45; Stop 05/07/20 at 21:46; Status DC Propofol (Diprivan) 200 mg STK-MED ONCE IV ; Start 05/08/20 at 08:37; Stop 05/08/20 at 08:38; Status DC Lidocaine HCl (Lidocaine Pf 2% Vial) 5 ml STK-MED ONCE .ROUTE ; Start 05/08/20 at 08:37; Stop 05/08/20 at 08:38; Status DC Fentanyl Citrate (Fentanyl 2ml Vial) 100 mcg STK-MED ONCE .ROUTE ; Start 05/08/20 at 08:37; Stop 05/08/20 at 08:38; Status DC Morphine Sulfate 5 mg/Ropivacaine 60 ml/Epinephrine HCl 0.5 mg/Sodium Chloride 99 ml @ 99 mls/hr 1X ONCE INT ART Last administered on 05/08/20at 10:33; Start 05/08/20 at 09:00; Stop 05/08/20 at 09:59; Status DC Cefazolin Sodium/ Dextrose 50 ml @ 100 mls/hr 1X ONCE IV Last administered on 05/08/20at 10:04; Start 05/08/20 at 08:49; Stop 05/08/20 at 09:18; Status DC Fentanyl Citrate (Fentanyl 2ml Vial) 100 mcg STK-MED ONCE .ROUTE ; Start 05/08/20 at 09:12; Stop 05/08/20 at 09:12; Status DC Ondansetron HCl (Zofran) 4 mg PRN Q6HRS PRN IV NAUSEA/VOMITING; Start 05/08/20 at 09:30; Stop 05/08/20 at 16:00; Status DC Fentanyl Citrate (Fentanyl 2ml Vial) 25 mcg PRN Q5MIN PRN IV MILD PAIN 1-3; Start 05/08/20 at 09:30; Stop 05/08/20 at 16:00; Status DC Fentanyl Citrate (Fentanyl 2ml Vial) 50 mcg PRN Q5MIN PRN IV MODERATE TO SEVERE PAIN; Start 05/08/20 at 09:30; Stop 05/08/20 at 16:00; Status DC Morphine Sulfate (Morphine Sulfate) 1 mg PRN Q10MIN PRN IV SEVERE PAIN 7-10; Start 05/08/20 at 09:30; Stop 05/08/20 at 16:00; Status DC Ringer's Solution 1,000 ml @ 30 mls/hr Q24H IV Last administered on 05/08/20at 08:00; Start 05/08/20 at 09:18; Stop 05/08/20 at 21:17; Status DC Lidocaine HCl (Xylocaine-Mpf 1% 2ml Vial) 2 ml PRN 1X PRN ID PRIOR TO IV START; Start 05/08/20 at 09:30; Stop 05/08/20 at 16:00; Status DC Hydromorphone HCl (Dilaudid) 0.5 mg PRN Q10MIN PRN IV SEV PAIN, Second choice; Start 05/08/20 at 09:30; Stop 05/08/20 at 16:00; Status DC Prochlorperazine Edisylate (Compazine) 5 mg PACU PRN PRN IV NAUSEA, MRX1; Start 05/08/20 at 09:30; Stop 05/08/20 at 16:00; Status DC Cefazolin Sodium (Ancef) 1 gm Q6H IVP ; Start 05/08/20 at 09:45; Stop 05/08/20 at 21:46; Status UNV Phenylephrine HCl (PHENYLEPHRINE in 0.9% NACL PF) 1 mg STK-MED ONCE IV ; Start 05/08/20 at 10:26; Stop 05/08/20 at 10:26; Status DC Phenylephrine HCl (Kannan-Synephrine Inj) 10 mg STK-MED ONCE .ROUTE ; Start 05/08/20 at 10:26; Stop 05/08/20 at 10:27; Status DC Sevoflurane (Ultane) 60 ml STK-MED ONCE IH ; Start 05/08/20 at 10:33; Stop 05/08/20 at 10:33; Status DC Ephedrine Sulfate (ePHEDrine PF IN SALINE SYRINGE) 50 mg STK-MED ONCE IV ; Start 05/08/20 at 10:40; Stop 05/08/20 at 10:40; Status DC Ondansetron HCl (Zofran) 4 mg STK-MED ONCE .ROUTE ; Start 05/08/20 at 10:47; Stop 05/08/20 at 10:47; Status DC Clindamycin Phosphate 50 ml @ 100 mls/hr Q8H IV Last administered on 05/09/20at 06:38; Start 05/08/20 at 15:00; Stop 05/09/20 at 07:29; Status DC Enoxaparin Sodium (Lovenox 30mg Syringe) 30 mg DAILY SQ Last administered on 05/09/20at 09:41; Start 05/09/20 at 09:00 Albuterol/ Ipratropium (Duoneb) 3 ml RTQID NEB Last administered on 05/09/20at 12:14; Start 05/08/20 at 16:00 Ringer's Solution 1,000 ml @ 250 mls/hr Q4H ONCE IV Last administered on 05/08/20at 12:58; Start 05/08/20 at 13:00; Stop 05/08/20 at 16:59; Status DC Sodium Chloride 500 ml @ 250 mls/hr 1X ONCE IV Last administered on 05/08/20at 20:15; Start 05/08/20 at 20:15; Stop 05/08/20 at 22:14; Status DC Sodium Chloride 1,000 ml @ 100 mls/hr Q10H IV Last administered on 05/09/20at 09:41; Start 05/08/20 at 20:15 Sodium Chloride 250 ml @ 250 mls/hr 1X ONCE IV Last administered on 05/08/20at 21:23; Start 05/08/20 at 21:30; Stop 05/08/20 at 22:29; Status DC Sodium Chloride 500 ml @ 500 mls/hr 1X ONCE IV Last administered on 05/08/20at 23:27; Start 05/08/20 at 23:00; Stop 05/08/20 at 23:59; Status DC Albumin Human 500 ml @ 125 mls/hr 1X ONCE IV Last administered on 05/09/20at 02:00; Start 05/09/20 at 02:00; Stop 05/09/20 at 05:59; Status DC Sodium Chloride 500 ml @ 500 mls/hr 1X ONCE IV Last administered on 05/09/20at 02:00; Start 05/09/20 at 02:00; Stop 05/09/20 at 02:59; Status DC Budesonide (Pulmicort) 0.5 mg RTBID NEB Last administered on 05/09/20at 12:15; Start 05/09/20 at 10:00 Active Scripts Active Reported Benefiber (Wheat Dextrin) 1 Each Powd.pack 1 Each PO PRN DAILY PRN [Albuterol Inhaler] [Advair] Atrovent Hfa (Ipratropium [place]) 12.9 Gm Hfa.aer.ad 2 Puff IH QID [synthroid] [Diltiazem] Montelukast Sodium Tablet (Montelukast Sodium) 10 Mg Tablet 10 Mg PO HS Claritin-D 24 Hour Tablet (Loratadine/Pseudoephedrine) 1 Each Tab.er.24h 1 Tab PO DAILY 10 Days Flonase Allergy Relief (Fluticasone Propionate) 9.9 Ml [place].susp 2 Sprays NS DAILY Allergies Allergies: Coded Allergies: Penicillins (Verified Allergy, Intermediate, Rash, 05/08/20) amoxicillin (Verified Allergy, Intermediate, Rash, 05/08/20) aspirin (Verified Allergy, Intermediate, 05/08/20) clarithromycin (Verified Allergy, Intermediate, 05/08/20) erythromycin base (Verified Allergy, Intermediate, Rash, 05/08/20) ibuprofen (Verified Allergy, Intermediate, 05/08/20) ROS Review of System CONFUSED Physical Exam General: Alert, Cooperative, No acute distress HEENT: Atraumatic, PERRLA Lungs: Clear to auscultation Heart: Regular rate Abdomen: Normal bowel sounds, Soft, No tenderness Extremities: No clubbing Skin: No breakdown Neuro: Other (SOME CONFUSION) MUSCULOSKELETAL: No joint tenderness, Other (DIFFUSE ATROPHY) Vitals VITALS Vital Signs Date Time Temp Pulse Resp B/P (MAP) Pulse Ox O2 Delivery O2 Flow Rate FiO2 05/09/20 12:17 94 Nasal Cannula 2.0 05/09/20 12:00 98.2 114 15 112/53 (72) 98.2 Labs Labs Laboratory Tests Test 05/07/20 17:15 05/08/20 00:30 05/08/20 01:35 05/08/20 03:00 White Blood Count 4.7 x10^3/uL (4.0-11.0) Red Blood Count 4.46 x10^6/uL (3.50-5.40) Hemoglobin 12.9 g/dL (12.0-15.5) Hematocrit 38.8 % (36.0-47.0) Mean Corpuscular Volume 87 fL (79-100) Mean Corpuscular Hemoglobin 29 pg (25-35) Mean Corpuscular Hemoglobin Concent 33 g/dL (31-37) Red Cell Distribution Width 14.9 % (11.5-14.5) Platelet Count 232 x10^3/uL (140-400) Neutrophils (%) (Auto) 73 % (31-73) Lymphocytes (%) (Auto) 12 % (24-48) Monocytes (%) (Auto) 12 % (0-9) Eosinophils (%) (Auto) 2 % (0-3) Basophils (%) (Auto) 1 % (0-3) Neutrophils # (Auto) 3.4 x10^3/uL (1.8-7.7) Lymphocytes # (Auto) 0.6 x10^3/uL (1.0-4.8) Monocytes # (Auto) 0.5 x10^3/uL (0.0-1.1) Eosinophils # (Auto) 0.1 x10^3/uL (0.0-0.7) Basophils # (Auto) 0.0 x10^3/uL (0.0-0.2) Prothrombin Time 11.9 SEC (11.7-14.0) 12.1 SEC (11.7-14.0) Prothromb Time International Ratio 0.9 (0.8-1.1) 0.9 (0.8-1.1) Activated Partial Thromboplast Time 29 SEC (24-38) Sodium Level 141 mmol/L (136-145) 143 mmol/L (136-145) Potassium Level 3.1 mmol/L (3.5-5.1) 3.8 mmol/L (3.5-5.1) Chloride Level 100 mmol/L (98-107) 101 mmol/L (98-107) Carbon Dioxide Level 39 mmol/L (21-32) 38 mmol/L (21-32) Anion Gap 2 (6-14) 4 (6-14) Blood Urea Nitrogen 12 mg/dL (7-20) 18 mg/dL (7-20) Creatinine 0.9 mg/dL (0.6-1.0) 1.1 mg/dL (0.6-1.0) Estimated GFR (Cockcroft-Gault) 59.2 47.0 BUN/Creatinine Ratio 13 (6-20) Glucose Level 117 mg/dL (70-99) 161 mg/dL (70-99) Calcium Level 8.7 mg/dL (8.5-10.1) 8.4 mg/dL (8.5-10.1) Total Bilirubin 0.4 mg/dL (0.2-1.0) Aspartate Amino Transf (AST/SGOT) 24 U/L (15-37) Alanine Aminotransferase (ALT/SGPT) 21 U/L (14-59) Alkaline Phosphatase 83 U/L (46-116) Total Protein 6.3 g/dL (6.4-8.2) Albumin 2.9 g/dL (3.4-5.0) Albumin/Globulin Ratio 0.9 (1.0-1.7) Nasal Screen MRSA (PCR) Negative (NEGATIVE) 25-Hydroxy Vitamin D Total 43.7 ng/mL (30-100) Urine Collection Type Unknown Urine Color Yellow Urine Clarity Clear Urine pH 6.5 (<5.0-8.0) Urine Specific [place] 1.020 (1.000-1.030) Urine Protein 30 mg/dL (NEG-TRACE) Urine Glucose (UA) Negative mg/dL (NEG) Urine Ketones (Stick) Negative mg/dL (NEG) Urine Blood Small (NEG) Urine Nitrite Negative (NEG) Urine Bilirubin Small (NEG) Urine Urobilinogen Dipstick 0.2 mg/dL (0.2 mg/dL) Urine Leukocyte Esterase Negative (NEG) Urine RBC 11-20 /HPF (0-2) Urine WBC 1-4 /HPF (0-4) Urine Squamous Epithelial Cells Few /LPF Urine Bacteria 0 /HPF (0-FEW) Urine Hyaline Casts Few /HPF Urine Mucus Marked /LPF Test 05/08/20 07:45 05/08/20 12:03 05/08/20 16:10 05/09/20 04:40 SARS-CoV-2 Antigen (Rapid) Negative (NEGATIVE) O2 Saturation 98 % (92-99) 97 % (92-99) Arterial Blood pH 7.32 (7.35-7.45) 7.36 (7.35-7.45) Arterial Blood pCO2 at Patient Temp 63 mmHg (35-46) 59 mmHg (35-46) Arterial Blood pO2 at Patient Temp 122 mmHg (65-108) 99 mmHg (65-108) Arterial Blood HCO3 32 mmol/L (21-28) 33 mmol/L (21-28) Arterial Blood Base Excess 4 mmol/L (-3-3) 6 mmol/L (-3-3) FiO2 40 35 White Blood Count 11.3 x10^3/uL (4.0-11.0) Red Blood Count 2.70 x10^6/uL (3.50-5.40) Hemoglobin 7.9 g/dL (12.0-15.5) Hematocrit 24.0 % (36.0-47.0) Mean Corpuscular Volume 89 fL (79-100) Mean Corpuscular Hemoglobin 29 pg (25-35) Mean Corpuscular Hemoglobin Concent 33 g/dL (31-37) Red Cell Distribution Width 15.4 % (11.5-14.5) Platelet Count 148 x10^3/uL (140-400) Neutrophils (%) (Auto) 82 % (31-73) Lymphocytes (%) (Auto) 5 % (24-48) Monocytes (%) (Auto) 13 % (0-9) Eosinophils (%) (Auto) 0 % (0-3) Basophils (%) (Auto) 0 % (0-3) Neutrophils # (Auto) 9.2 x10^3/uL (1.8-7.7) Lymphocytes # (Auto) 0.6 x10^3/uL (1.0-4.8) Monocytes # (Auto) 1.5 x10^3/uL (0.0-1.1) Eosinophils # (Auto) 0.0 x10^3/uL (0.0-0.7) Basophils # (Auto) 0.0 x10^3/uL (0.0-0.2) Sodium Level 141 mmol/L (136-145) Potassium Level 4.4 mmol/L (3.5-5.1) Chloride Level 106 mmol/L (98-107) Carbon Dioxide Level 32 mmol/L (21-32) Anion Gap 3 (6-14) Blood Urea Nitrogen 31 mg/dL (7-20) Creatinine 1.6 mg/dL (0.6-1.0) Estimated GFR (Cockcroft-Gault) 30.5 Glucose Level 98 mg/dL (70-99) Calcium Level 7.7 mg/dL (8.5-10.1) Laboratory Tests Test 05/08/20 16:10 05/09/20 04:40 O2 Saturation 97 % (92-99) Arterial Blood pH 7.36 (7.35-7.45) Arterial Blood pCO2 at Patient Temp 59 mmHg (35-46) Arterial Blood pO2 at Patient Temp 99 mmHg (65-108) Arterial Blood HCO3 33 mmol/L (21-28) Arterial Blood Base Excess 6 mmol/L (-3-3) FiO2 35 White Blood Count 11.3 x10^3/uL (4.0-11.0) Red Blood Count 2.70 x10^6/uL (3.50-5.40) Hemoglobin 7.9 g/dL (12.0-15.5) Hematocrit 24.0 % (36.0-47.0) Mean Corpuscular Volume 89 fL (79-100) Mean Corpuscular Hemoglobin 29 pg (25-35) Mean Corpuscular Hemoglobin Concent 33 g/dL (31-37) Red Cell Distribution Width 15.4 % (11.5-14.5) Platelet Count 148 x10^3/uL (140-400) Neutrophils (%) (Auto) 82 % (31-73) Lymphocytes (%) (Auto) 5 % (24-48) Monocytes (%) (Auto) 13 % (0-9) Eosinophils (%) (Auto) 0 % (0-3) Basophils (%) (Auto) 0 % (0-3) Neutrophils # (Auto) 9.2 x10^3/uL (1.8-7.7) Lymphocytes # (Auto) 0.6 x10^3/uL (1.0-4.8) Monocytes # (Auto) 1.5 x10^3/uL (0.0-1.1) Eosinophils # (Auto) 0.0 x10^3/uL (0.0-0.7) Basophils # (Auto) 0.0 x10^3/uL (0.0-0.2) Sodium Level 141 mmol/L (136-145) Potassium Level 4.4 mmol/L (3.5-5.1) Chloride Level 106 mmol/L (98-107) Carbon Dioxide Level 32 mmol/L (21-32) Anion Gap 3 (6-14) Blood Urea Nitrogen 31 mg/dL (7-20) Creatinine 1.6 mg/dL (0.6-1.0) Estimated GFR (Cockcroft-Gault) 30.5 Glucose Level 98 mg/dL (70-99) Calcium Level 7.7 mg/dL (8.5-10.1) Assessment/Plan Assessment/Plan IMP THANIA DEHYDRATION ACUTE ON CHRONIC RESP FAILURE S/P EXTUBATION S/P LEFT HIP FX REPAIR PLAN HYDRATION PPN FOR NOW ENC PO UPDATED DAUGHTER WILL FOLLOW KENDALL HANONN MD May 09, 2020 12:48
--- NOTE | 2020-05-09 13:28 | RAD ---
Renal sonography Clinical indications: Low urine output. History urinary tract infections. FINDINGS: The longitudinal and AP and transverse dimensions of the right kidney are 9.9 cm and 3.3 cm and 4.7 cm respectively. The longitudinal and AP and transverse dimensions of left kidney are 9.5 cm and 4.1 cm and 4.4 cm respectively. No hydronephrosis or renal mass or perinephric fluid collection is seen on either side. There is a small lower pole left renal cyst measuring 9 mm. Urinary bladder is empty due to an indwelling Zeng catheter. IMPRESSION: No hydronephrosis. Electronically signed by: Austin Patel MD (05/09/2020 1:25 PM) [id number]
[2020-05-09] MEDS ORDERED: ACETAMINOPHEN 325 MG TABLET. PO PRN (13:30)
[2020-05-09] MEDS: AMINO AC 3%/ELECTROLYTE/GLYCER 1,000 ML IV SCH (14:19)
[2020-05-09] MEDS: oxyCODONE/APAP 5/325 1 TAB TABLET PO PRN (23:41)
[2020-05-10] MEDS: AMINO AC 3%/ELECTROLYTE/GLYCER 1,000 ML IV SCH ×2 (02:30→14:00)
--- NOTE | 2020-05-10 03:15 | NUR ---
Patient found with IV pulled out and blood on her and bedding. told nurse (myself) that I was killing her and to call police. Pt cleaned up and bed changed, pt trying to hit and pinch nurses. Mitts placed on hands to prevent pulling out other IV Addendum: 05/10/20 at 0448 by RAMON FRIEDMAN RN Amended: Links added.
[2020-05-10 04:40] LABS: CALCIUM 8.1 mg/dL (8.5-10.1); CREATININE 0.9 mg/dL (0.6-1.0); GFR 59.2; POTASSIUM 4.3 mmol/L (3.5-5.1)
[2020-05-10] MEDS: BUDESONIDE 0.5 MG/2 ML NEBU. NEB SCH ×2 (07:15→19:15)
[2020-05-10] MEDS: IPRATRPIUM/ALBUTEROL 0.5/2.5MG 3 ML NEBU. NEB SCH ×4 (07:16→19:15)
--- NOTE | 2020-05-10 08:55 | PDOC ---
ORTHO PROGRESS NOTES Subjective She has had intermittent confusion and refusing treatments Vitals Vital Signs Date Time Temp Pulse Resp B/P (MAP) Pulse Ox O2 Delivery O2 Flow Rate FiO2 05/10/20 07:20 92 Nasal Cannula 4.0 05/10/20 00:45 18 05/09/20 23:00 98.4 116 129/64 (85) 98.4 Labs Laboratory Tests Test 05/08/20 12:03 05/08/20 16:10 05/09/20 04:40 05/10/20 03:45 O2 Saturation 98 % (92-99) 97 % (92-99) Arterial Blood pH 7.32 (7.35-7.45) 7.36 (7.35-7.45) Arterial Blood pCO2 at Patient Temp 63 mmHg (35-46) 59 mmHg (35-46) Arterial Blood pO2 at Patient Temp 122 mmHg (65-108) 99 mmHg (65-108) Arterial Blood HCO3 32 mmol/L (21-28) 33 mmol/L (21-28) Arterial Blood Base Excess 4 mmol/L (-3-3) 6 mmol/L (-3-3) FiO2 40 35 White Blood Count 11.3 x10^3/uL (4.0-11.0) Red Blood Count 2.70 x10^6/uL (3.50-5.40) Hemoglobin 7.9 g/dL (12.0-15.5) Hematocrit 24.0 % (36.0-47.0) Mean Corpuscular Volume 89 fL (79-100) Mean Corpuscular Hemoglobin 29 pg (25-35) Mean Corpuscular Hemoglobin Concent 33 g/dL (31-37) Red Cell Distribution Width 15.4 % (11.5-14.5) Platelet Count 148 x10^3/uL (140-400) Neutrophils (%) (Auto) 82 % (31-73) Lymphocytes (%) (Auto) 5 % (24-48) Monocytes (%) (Auto) 13 % (0-9) Eosinophils (%) (Auto) 0 % (0-3) Basophils (%) (Auto) 0 % (0-3) Neutrophils # (Auto) 9.2 x10^3/uL (1.8-7.7) Lymphocytes # (Auto) 0.6 x10^3/uL (1.0-4.8) Monocytes # (Auto) 1.5 x10^3/uL (0.0-1.1) Eosinophils # (Auto) 0.0 x10^3/uL (0.0-0.7) Basophils # (Auto) 0.0 x10^3/uL (0.0-0.2) Sodium Level 141 mmol/L (136-145) 140 mmol/L (136-145) Potassium Level 4.4 mmol/L (3.5-5.1) 4.3 mmol/L (3.5-5.1) Chloride Level 106 mmol/L (98-107) 103 mmol/L (98-107) Carbon Dioxide Level 32 mmol/L (21-32) 30 mmol/L (21-32) Anion Gap 3 (6-14) 7 (6-14) Blood Urea Nitrogen 31 mg/dL (7-20) 30 mg/dL (7-20) Creatinine 1.6 mg/dL (0.6-1.0) 0.9 mg/dL (0.6-1.0) Estimated GFR (Cockcroft-Gault) 30.5 59.2 Glucose Level 98 mg/dL (70-99) 143 mg/dL (70-99) Calcium Level 7.7 mg/dL (8.5-10.1) 8.1 mg/dL (8.5-10.1) Magnesium Level 2.0 mg/dL (1.8-2.4) Laboratory Tests Test 05/10/20 03:45 Sodium Level 140 mmol/L (136-145) Potassium Level 4.3 mmol/L (3.5-5.1) Chloride Level 103 mmol/L (98-107) Carbon Dioxide Level 30 mmol/L (21-32) Anion Gap 7 (6-14) Blood Urea Nitrogen 30 mg/dL (7-20) Creatinine 0.9 mg/dL (0.6-1.0) Estimated GFR (Cockcroft-Gault) 59.2 Glucose Level 143 mg/dL (70-99) Calcium Level 8.1 mg/dL (8.5-10.1) Magnesium Level 2.0 mg/dL (1.8-2.4) Notes She is awake and in bed. She does not answer asked questions appropriately. She is confused Assessment and Plan I think given her confusion that is unlikely she will cooperate with PT and OT. I would anticipate she will need placement. She can be discharged once a bed is available. DUSTIN TOVAR II, MD May 10, 2020 08:55
--- NOTE | 2020-05-10 09:53 | NUR ---
SW following. Discussed with RN, transfer from ICU. Pt very confused, wanting to leave. PT/OT ordered, pt on PPN. DOUG will continue to follow. Addendum: 05/10/20 at 1552 by VIOLA CAMACHO PT/OT recommending SNU. Family is wanting referral to [facility]. DOUG phoned and faxed referral to [facility]. Dr. Xiong stated pt may be ready in the next day or two. Awaiting acceptance decision. DOUG spoke with pt's daughter, Stephen. DOUG will continue to follow.
--- NOTE | 2020-05-10 10:35 | PDOC ---
PULMONARY PROGRESS NOTES Subjective extubated 05/08 on 3liters N/C no SOA, or cough no concerns from nursing overnight Vitals Vital Signs Date Time Temp Pulse Resp B/P (MAP) Pulse Ox O2 Delivery O2 Flow Rate FiO2 05/10/20 08:00 Nasal Cannula 4.0 05/10/20 07:20 92 05/10/20 00:45 18 05/09/20 23:00 98.4 116 129/64 (85) 98.4 ROS: No Nausea, No Chest Pain, No Abdominal Pain, No Increase Cough General: Alert Lungs: Clear Cardiovascular: S1, S2 Abdomen: Soft, Non-tender Neuro Exam: Alert Extremities: No Edema Skin: Warm Labs Laboratory Tests Test 05/08/20 12:03 05/08/20 16:10 05/09/20 04:40 05/10/20 03:45 O2 Saturation 98 % (92-99) 97 % (92-99) Arterial Blood pH 7.32 (7.35-7.45) 7.36 (7.35-7.45) Arterial Blood pCO2 at Patient Temp 63 mmHg (35-46) 59 mmHg (35-46) Arterial Blood pO2 at Patient Temp 122 mmHg (65-108) 99 mmHg (65-108) Arterial Blood HCO3 32 mmol/L (21-28) 33 mmol/L (21-28) Arterial Blood Base Excess 4 mmol/L (-3-3) 6 mmol/L (-3-3) FiO2 40 35 White Blood Count 11.3 x10^3/uL (4.0-11.0) Red Blood Count 2.70 x10^6/uL (3.50-5.40) Hemoglobin 7.9 g/dL (12.0-15.5) Hematocrit 24.0 % (36.0-47.0) Mean Corpuscular Volume 89 fL (79-100) Mean Corpuscular Hemoglobin 29 pg (25-35) Mean Corpuscular Hemoglobin Concent 33 g/dL (31-37) Red Cell Distribution Width 15.4 % (11.5-14.5) Platelet Count 148 x10^3/uL (140-400) Neutrophils (%) (Auto) 82 % (31-73) Lymphocytes (%) (Auto) 5 % (24-48) Monocytes (%) (Auto) 13 % (0-9) Eosinophils (%) (Auto) 0 % (0-3) Basophils (%) (Auto) 0 % (0-3) Neutrophils # (Auto) 9.2 x10^3/uL (1.8-7.7) Lymphocytes # (Auto) 0.6 x10^3/uL (1.0-4.8) Monocytes # (Auto) 1.5 x10^3/uL (0.0-1.1) Eosinophils # (Auto) 0.0 x10^3/uL (0.0-0.7) Basophils # (Auto) 0.0 x10^3/uL (0.0-0.2) Sodium Level 141 mmol/L (136-145) 140 mmol/L (136-145) Potassium Level 4.4 mmol/L (3.5-5.1) 4.3 mmol/L (3.5-5.1) Chloride Level 106 mmol/L (98-107) 103 mmol/L (98-107) Carbon Dioxide Level 32 mmol/L (21-32) 30 mmol/L (21-32) Anion Gap 3 (6-14) 7 (6-14) Blood Urea Nitrogen 31 mg/dL (7-20) 30 mg/dL (7-20) Creatinine 1.6 mg/dL (0.6-1.0) 0.9 mg/dL (0.6-1.0) Estimated GFR (Cockcroft-Gault) 30.5 59.2 Glucose Level 98 mg/dL (70-99) 143 mg/dL (70-99) Calcium Level 7.7 mg/dL (8.5-10.1) 8.1 mg/dL (8.5-10.1) Magnesium Level 2.0 mg/dL (1.8-2.4) Laboratory Tests Test 05/10/20 03:45 Sodium Level 140 mmol/L (136-145) Potassium Level 4.3 mmol/L (3.5-5.1) Chloride Level 103 mmol/L (98-107) Carbon Dioxide Level 30 mmol/L (21-32) Anion Gap 7 (6-14) Blood Urea Nitrogen 30 mg/dL (7-20) Creatinine 0.9 mg/dL (0.6-1.0) Estimated GFR (Cockcroft-Gault) 59.2 Glucose Level 143 mg/dL (70-99) Calcium Level 8.1 mg/dL (8.5-10.1) Magnesium Level 2.0 mg/dL (1.8-2.4) Medications Active Scripts Medications Dose Route/Sig Max Daily Dose Days Date Category Benefiber (Wheat Dextrin) 1 Each Powd.pack 1 Each PO PRN DAILY PRN 05/08/20 Reported [Albuterol Inhaler] 05/08/20 Reported [Advair] 05/08/20 Reported Atrovent Hfa (Ipratropium Custar) 12.9 Gm Hfa.aer.ad 2 Puff IH QID 05/08/20 Reported [synthroid] 05/08/20 Reported [Diltiazem] 05/08/20 Reported Montelukast Sodium Tablet (Montelukast Sodium) 10 Mg Tablet 10 Mg PO HS 05/08/20 Reported Claritin-D 24 Hour Tablet (Loratadine/Pseudoephedrine) 1 Each Tab.er.24h 1 Tab PO DAILY 10 05/08/20 Reported Flonase Allergy Relief (Fluticasone Propionate) 9.9 Ml [place].susp 2 Sprays NS DAILY 05/08/20 Reported Impression . IMPRESSION: 1. Frbih-oe-wkhdkga hypercapnic respiratory failure which is expected in a patient who underwent left hip surgery and received 100 mg of fentanyl and propofol. Her ABG shows mildly decompensated respiratory acidosis.-- extubated 05/08 2. Underlying chronic obstructive pulmonary disease. 3. Left intertrochanteric hip fracture, status post closed reduction and intramedullary nailing of the left intertrochanteric hip fracture. 4. THANIA Plan . RECOMMENDATIONS: 1. Extubated 05/08, now on 3 liters N/C tolerating well 2. Continue DuoNeb and pulmicort 3. Lovenox for DVT prophylaxis. 4. Empiric antibiotic per Ortho. 5. Continue supportive care. 6. Discussed with RN d/w daughter YIN ANGELO MD May 10, 2020 10:34
[2020-05-10 11:08] VITALS: BP 93/46
--- NOTE | 2020-05-10 11:08 | PDOC ---
Renal-Progress Notes Subjective Notes Notes NO NEW COMPLAINTS History of Present Illness Hx of present illness NO STABLE Vitals Vitals Vital Signs Date Time Temp Pulse Resp B/P (MAP) Pulse Ox O2 Delivery O2 Flow Rate FiO2 05/10/20 08:00 Nasal Cannula 4.0 05/10/20 07:20 92 05/10/20 00:45 18 05/09/20 23:00 98.4 116 129/64 (85) 98.4 Weight Weight [ ] I.O. Intake and Output Intake and Output 05/10/20 07:00 Intake Total 50 ml Output Total 1445 ml Balance -1395 ml Intake Oral 50 ml Output Urine Total 1445 ml Labs Labs Laboratory Tests Test 05/10/20 03:45 Sodium Level 140 mmol/L (136-145) Potassium Level 4.3 mmol/L (3.5-5.1) Chloride Level 103 mmol/L (98-107) Carbon Dioxide Level 30 mmol/L (21-32) Anion Gap 7 (6-14) Blood Urea Nitrogen 30 mg/dL (7-20) Creatinine 0.9 mg/dL (0.6-1.0) Estimated GFR (Cockcroft-Gault) 59.2 Glucose Level 143 mg/dL (70-99) Calcium Level 8.1 mg/dL (8.5-10.1) Magnesium Level 2.0 mg/dL (1.8-2.4) Review of Systems Constitutional: yes: weakness, alert, oriented Ears/Nose/Throat: Yes: no symptom reported Eyes: Yes: no symptom reported Pulmonary: Yes no symptom reported Cardiovascular: Yes no symptom reported Gastrointestional: Yes: no symptom reported Genitourinary: Yes: no symptom reported Musculoskeletal: Yes: no symptom reported Skin: Yes no symptom reported Psychiatric/Neurological: Yes: no symptom reported Physical Exam General Appearance: no apparent distress Skin: warm Respiratory: bilateral CTA Heart: S1S2 Abdomen: soft Genitourinary: bladder flat Extremities: pulses present Neurology: alert, oriented Assessment Assessment IMP THANIA-RESOLVED DEHYDRATION ACUTE ON CHRONIC RESP FAILURE S/P EXTUBATION S/P LEFT HIP FX REPAIR PLAN WILL SIGN OFF PLEASE CALL IF NEEDED KENDALL HANNON MD May 10, 2020 11:07
[2020-05-10] MEDS: ENOXAPARIN 30 MG/0.3 ML SYRINGE. SQ SCH (12:05)
[2020-05-10] MEDS: oxyCODONE/APAP 5/325 1 TAB TABLET PO PRN (12:08)
--- NOTE | 2020-05-10 13:32 | NUR ---
magalis is much more cooperative at this time her daughter and granddaughter are here. this am she refused vital signs. she refused the 11oo resp treatment. she was cooperative with OT and dangled on the side of the bed.
[2020-05-10 14:58] VITALS: BP 102/52
--- NOTE | 2020-05-10 15:25 | PDOC ---
PROGRESS NOTES Chief Complaint Chief Complaint Acute comminuted intertrochanteric left hip fracture which is moderately displaced. Lesser trochanter is medially displaced. Mechanical fall Mild osteopenia COPD Acute hypokalemia Hypercapnia Left mid lung nodule Appreciate Ortho recommendations for postoperative care and advancing diet Appreciate pulmonary recommendations Dementia prevention protocol Lovenox for DVT prophylaxis Protonix GI prophylaxis ADA diet Full code Discussed with RN History of Present Illness History of Present Illness 05/10,. doing well, getting better, very weak, has love, plan SNU, maybe 1-2 days 05/09/2020 Patient's extubated and saturating well on room air. Pain is well controlled. Patient has baseline dementia. She is not agitated or confused. She is alert and awake oriented x2. Patient's chart, labs, images were reviewed and discussed with RN Vitals Vitals Vital Signs Date Time Temp Pulse Resp B/P (MAP) Pulse Ox O2 Delivery O2 Flow Rate FiO2 05/10/20 15:12 92 Nasal Cannula 4.0 05/10/20 14:58 98.3 108 16 102/52 (69) 98.3 Physical Exam Physical Exam GEN: No apparent distress. Alert and oriented HEENT: Normal cephalic, atraumatic, external auditory canals are patent NECK: Supple, no JVD, no thyromegaly was noted LUNGS: Bilateral crackles HEART: RRR, S1, S2 present. Peripheral pulses intact, no obvious murmurs noted ABDOMEN: Soft, nontender. Positive bowel sounds, no organomegaly, normal bowel sounds EXTREMITIES: No bilateral pedal edema. Dressings are clean dry intact. Hips is stable General: Alert, Cooperative, No acute distress Heart: Regular rate Lungs: Clear Abdomen: Normal bowel sounds, Soft, No tenderness Extremities: No clubbing Skin: No breakdown Labs LABS Laboratory Tests Test 05/10/20 03:45 Sodium Level 140 mmol/L (136-145) Potassium Level 4.3 mmol/L (3.5-5.1) Chloride Level 103 mmol/L (98-107) Carbon Dioxide Level 30 mmol/L (21-32) Anion Gap 7 (6-14) Blood Urea Nitrogen 30 mg/dL (7-20) Creatinine 0.9 mg/dL (0.6-1.0) Estimated GFR (Cockcroft-Gault) 59.2 Glucose Level 143 mg/dL (70-99) Calcium Level 8.1 mg/dL (8.5-10.1) Magnesium Level 2.0 mg/dL (1.8-2.4) Comment Review of Relevant I have reviewed the following items cameron (where applicable) has been applied. Labs Laboratory Tests Test 05/08/20 16:10 05/09/20 04:40 05/10/20 03:45 O2 Saturation 97 % (92-99) Arterial Blood pH 7.36 (7.35-7.45) Arterial Blood pCO2 at Patient Temp 59 mmHg (35-46) Arterial Blood pO2 at Patient Temp 99 mmHg (65-108) Arterial Blood HCO3 33 mmol/L (21-28) Arterial Blood Base Excess 6 mmol/L (-3-3) FiO2 35 White Blood Count 11.3 x10^3/uL (4.0-11.0) Red Blood Count 2.70 x10^6/uL (3.50-5.40) Hemoglobin 7.9 g/dL (12.0-15.5) Hematocrit 24.0 % (36.0-47.0) Mean Corpuscular Volume 89 fL (79-100) Mean Corpuscular Hemoglobin 29 pg (25-35) Mean Corpuscular Hemoglobin Concent 33 g/dL (31-37) Red Cell Distribution Width 15.4 % (11.5-14.5) Platelet Count 148 x10^3/uL (140-400) Neutrophils (%) (Auto) 82 % (31-73) Lymphocytes (%) (Auto) 5 % (24-48) Monocytes (%) (Auto) 13 % (0-9) Eosinophils (%) (Auto) 0 % (0-3) Basophils (%) (Auto) 0 % (0-3) Neutrophils # (Auto) 9.2 x10^3/uL (1.8-7.7) Lymphocytes # (Auto) 0.6 x10^3/uL (1.0-4.8) Monocytes # (Auto) 1.5 x10^3/uL (0.0-1.1) Eosinophils # (Auto) 0.0 x10^3/uL (0.0-0.7) Basophils # (Auto) 0.0 x10^3/uL (0.0-0.2) Sodium Level 141 mmol/L (136-145) 140 mmol/L (136-145) Potassium Level 4.4 mmol/L (3.5-5.1) 4.3 mmol/L (3.5-5.1) Chloride Level 106 mmol/L (98-107) 103 mmol/L (98-107) Carbon Dioxide Level 32 mmol/L (21-32) 30 mmol/L (21-32) Anion Gap 3 (6-14) 7 (6-14) Blood Urea Nitrogen 31 mg/dL (7-20) 30 mg/dL (7-20) Creatinine 1.6 mg/dL (0.6-1.0) 0.9 mg/dL (0.6-1.0) Estimated GFR (Cockcroft-Gault) 30.5 59.2 Glucose Level 98 mg/dL (70-99) 143 mg/dL (70-99) Calcium Level 7.7 mg/dL (8.5-10.1) 8.1 mg/dL (8.5-10.1) Magnesium Level 2.0 mg/dL (1.8-2.4) Laboratory Tests Test 05/10/20 03:45 Sodium Level 140 mmol/L (136-145) Potassium Level 4.3 mmol/L (3.5-5.1) Chloride Level 103 mmol/L (98-107) Carbon Dioxide Level 30 mmol/L (21-32) Anion Gap 7 (6-14) Blood Urea Nitrogen 30 mg/dL (7-20) Creatinine 0.9 mg/dL (0.6-1.0) Estimated GFR (Cockcroft-Gault) 59.2 Glucose Level 143 mg/dL (70-99) Calcium Level 8.1 mg/dL (8.5-10.1) Magnesium Level 2.0 mg/dL (1.8-2.4) Medications Current Medications Fentanyl Citrate (Fentanyl 2ml Vial) 25 mcg 1X ONCE IVP Last administered on 05/07/20at 18:12; Start 05/07/20 at 17:45; Stop 05/07/20 at 17:46; Status DC Albuterol Sulfate (Ventolin Neb Soln) 2.5 mg 1X ONCE NEB Last administered on 05/07/20at 18:28; Start 05/07/20 at 17:45; Stop 05/07/20 at 17:46; Status DC Fentanyl Citrate (Fentanyl 2ml Vial) 50 mcg 1X ONCE IVP Last administered on 05/07/20at 18:47; Start 05/07/20 at 18:45; Stop 05/07/20 at 18:46; Status DC Potassium Chloride (Klor-Con) 40 meq 1X PRN PO PER PROTOCOL; Start 05/07/20 at 20:30 Potassium Chloride/Water 100 ml @ 100 mls/hr PRN Q1HR PRN IV SEE COMMENTS; Start 05/07/20 at 20:30 Potassium Phos/ Sodium Phos (Phos-Nak) 1 pkt PRN BID PRN PO SEE COMMENTS; Start 05/07/20 at 21:00 Potassium Bicarbonate (Potassium Effervescent Tablet) 40 meq PRN Q4HRS PRN PO SEE COMMENTS; Start 05/07/20 at 20:30 Potassium Chloride/Water 100 ml @ 100 mls/hr PRN Q1HR PRN IV SEE COMMENTS; Start 05/07/20 at 20:30 Hydromorphone HCl (Dilaudid) 0.2 mg PRN Q1HR PRN IV PAIN Last administered on 05/09/20at 11:27; Start 05/07/20 at 20:30; Stop 05/09/20 at 13:28; Status DC Potassium Chloride (Klor-Con) 40 meq 1X ONCE PO Last administered on 05/07/20at 22:27; Start 05/07/20 at 21:00; Stop 05/07/20 at 21:01; Status DC Albuterol Sulfate (Ventolin Neb Soln) 2.5 mg PRN QID PRN NEB SHORTNESS OF BREATH Last administered on 05/08/20at 12:42; Start 05/07/20 at 21:45 Enoxaparin Sodium (Lovenox 30mg Syringe) 30 mg 1X ONCE SQ ; Start 05/07/20 at 21:45; Stop 05/07/20 at 21:46; Status DC Propofol (Diprivan) 200 mg STK-MED ONCE IV ; Start 05/08/20 at 08:37; Stop 05/08/20 at 08:38; Status DC Lidocaine HCl (Lidocaine Pf 2% Vial) 5 ml STK-MED ONCE .ROUTE ; Start 05/08/20 a t 08:37; Stop 05/08/20 at 08:38; Status DC Fentanyl Citrate (Fentanyl 2ml Vial) 100 mcg STK-MED ONCE .ROUTE ; Start 05/08/20 at 08:37; Stop 05/08/20 at 08:38; Status DC Morphine Sulfate 5 mg/Ropivacaine 60 ml/Epinephrine HCl 0.5 mg/Sodium Chloride 99 ml @ 99 mls/hr 1X ONCE INT ART Last administered on 05/08/20at 10:33; Start 05/08/20 at 09:00; Stop 05/08/20 at 09:59; Status DC Cefazolin Sodium/ Dextrose 50 ml @ 100 mls/hr 1X ONCE IV Last administered on 05/08/20at 10:04; Start 05/08/20 at 08:49; Stop 05/08/20 at 09:18; Status DC Fentanyl Citrate (Fentanyl 2ml Vial) 100 mcg STK-MED ONCE .ROUTE ; Start 05/08/20 at 09:12; Stop 05/08/20 at 09:12; Status DC Ondansetron HCl (Zofran) 4 mg PRN Q6HRS PRN IV NAUSEA/VOMITING; Start 05/08/20 at 09:30; Stop 05/08/20 at 16:00; Status DC Fentanyl Citrate (Fentanyl 2ml Vial) 25 mcg PRN Q5MIN PRN IV MILD PAIN 1-3; Start 05/08/20 at 09:30; Stop 05/08/20 at 16:00; Status DC Fentanyl Citrate (Fentanyl 2ml Vial) 50 mcg PRN Q5MIN PRN IV MODERATE TO SEVERE PAIN; Start 05/08/20 at 09:30; Stop 05/08/20 at 16:00; Status DC Morphine Sulfate (Morphine Sulfate) 1 mg PRN Q10MIN PRN IV SEVERE PAIN 7-10; Start 05/08/20 at 09:30; Stop 05/08/20 at 16:00; Status DC Ringer's Solution 1,000 ml @ 30 mls/hr Q24H IV Last administered on 05/08/20at 08:00; Start 05/08/20 at 09:18; Stop 05/08/20 at 21:17; Status DC Lidocaine HCl (Xylocaine-Mpf 1% 2ml Vial) 2 ml PRN 1X PRN ID PRIOR TO IV START; Start 05/08/20 at 09:30; Stop 05/08/20 at 16:00; Status DC Hydromorphone HCl (Dilaudid) 0.5 mg PRN Q10MIN PRN IV SEV PAIN, Second choice; Start 05/08/20 at 09:30; Stop 05/08/20 at 16:00; Status DC Prochlorperazine Edisylate (Compazine) 5 mg PACU PRN PRN IV NAUSEA, MRX1; Start 05/08/20 at 09:30; Stop 05/08/20 at 16:00; Status DC Cefazolin Sodium (Ancef) 1 gm Q6H IVP ; Start 05/08/20 at 09:45; Stop 05/08/20 at 21:46; Status UNV Phenylephrine HCl (PHENYLEPHRINE in 0.9% NACL PF) 1 mg STK-MED ONCE IV ; Start 05/08/20 at 10:26; Stop 05/08/20 at 10:26; Status DC Phenylephrine HCl (Kannan-Synephrine Inj) 10 mg STK-MED ONCE .ROUTE ; Start 05/08/20 at 10:26; Stop 05/08/20 at 10:27; Status DC Sevoflurane (Ultane) 60 ml STK-MED ONCE IH ; Start 05/08/20 at 10:33; Stop 05/08/20 at 10:33; Status DC Ephedrine Sulfate (ePHEDrine PF IN SALINE SYRINGE) 50 mg STK-MED ONCE IV ; Start 05/08/20 at 10:40; Stop 05/08/20 at 10:40; Status DC Ondansetron HCl (Zofran) 4 mg STK-MED ONCE .ROUTE ; Start 05/08/20 at 10:47; Stop 05/08/20 at 10:47; Status DC Clindamycin Phosphate 50 ml @ 100 mls/hr Q8H IV Last administered on 05/09/20at 06:38; Start 05/08/20 at 15:00; Stop 05/09/20 at 07:29; Status DC Enoxaparin Sodium (Lovenox 30mg Syringe) 30 mg DAILY SQ Last administered on 05/10/20at 12:05; Start 05/09/20 at 09:00 Albuterol/ Ipratropium (Duoneb) 3 ml RTQID NEB Last administered on 05/10/20at 15:14; Start 05/08/20 at 16:00 Ringer's Solution 1,000 ml @ 250 mls/hr Q4H ONCE IV Last administered on 05/08/20at 12:58; Start 05/08/20 at 13:00; Stop 05/08/20 at 16:59; Status DC Sodium Chloride 500 ml @ 250 mls/hr 1X ONCE IV Last administered on 05/08/20at 20:15; Start 05/08/20 at 20:15; Stop 05/08/20 at 22:14; Status DC Sodium Chloride 1,000 ml @ 100 mls/hr Q10H IV Last administered on 05/09/20at 09:41; Start 05/08/20 at 20:15; Stop 05/09/20 at 12:50; Status DC Sodium Chloride 250 ml @ 250 mls/hr 1X ONCE IV Last administered on 05/08/20at 21:23; Start 05/08/20 at 21:30; Stop 05/08/20 at 22:29; Status DC Sodium Chloride 500 ml @ 500 mls/hr 1X ONCE IV Last administered on 05/08/20at 23:27; Start 05/08/20 at 23:00; Stop 05/08/20 at 23:59; Status DC Albumin Human 500 ml @ 125 mls/hr 1X ONCE IV Last administered on 05/09/20at 02:00; Start 05/09/20 at 02:00; Stop 05/09/20 at 05:59; Status DC Sodium Chloride 500 ml @ 500 mls/hr 1X ONCE IV Last administered on 05/09/20at 02:00; Start 05/09/20 at 02:00; Stop 05/09/20 at 02:59; Status DC Budesonide (Pulmicort) 0.5 mg RTBID NEB Last administered on 05/10/20at 07:15; Start 05/09/20 at 10:00 Amino Acids/ Glycerin/ Electrolytes 1,000 ml @ 80 mls/hr [id number] IV Last administered on 05/10/20at 02:30; Start 05/09/20 at 13:00 Acetaminophen (Tylenol) 650 mg PRN Q6HRS PRN PO MILD PAIN 1-3; Start 05/09/20 at 13:30 Oxycodone/ Acetaminophen (Percocet 5/325) 1 tab PRN Q6HRS PRN PO MODERATE TO SEVERE PAIN Last administered on 05/10/20at 12:08; Start 05/09/20 at 13:30 Active Scripts Active Reported Benefiber (Wheat Dextrin) 1 Each Powd.pack 1 Each PO PRN DAILY PRN [Albuterol Inhaler] [Advair] Atrovent Hfa (Ipratropium [place]) 12.9 Gm Hfa.aer.ad 2 Puff IH QID [synthroid] [Diltiazem] Montelukast Sodium Tablet (Montelukast Sodium) 10 Mg Tablet 10 Mg PO HS Claritin-D 24 Hour Tablet (Loratadine/Pseudoephedrine) 1 Each Tab.er.24h 1 Tab PO DAILY 10 Days Flonase Allergy Relief (Fluticasone Propionate) 9.9 Ml [place].susp 2 Sprays NS DAILY Vitals/I & O Vital Sign - Last 24 Hours 05/09/20 05/09/20 05/09/20 05/09/20 15:41 19:00 20:00 20:58 Temp 97.1 97.1 Pulse 119 Resp 18 B/P (MAP) 146/63 (90) Pulse Ox 96 89 O2 Delivery Nasal Cannula Nasal Cannula Nasal Cannula Nasal Cannula O2 Flow Rate 2.0 3.0 3.0 3.0 05/09/20 05/09/20 05/10/20 05/10/20 23:00 23:41 00:45 07:20 Temp 98.4 98.4 Pulse 116 Resp 18 20 18 B/P (MAP) 129/64 (85) Pulse Ox 97 89 92 O2 Delivery Nasal Cannula Nasal Cannula Nasal Cannula Nasal Cannula O2 Flow Rate 3.0 3.0 3.0 4.0 05/10/20 05/10/20 05/10/20 05/10/20 08:00 11:08 12:08 13:00 Temp 98.2 98.2 Pulse 113 Resp 19 20 B/P (MAP) 93/46 (62) Pulse Ox 100 100 O2 Delivery Nasal Cannula Nasal Cannula Nasal Cannula Nasal Cannula O2 Flow Rate 4.0 3.0 3.0 3.0 05/10/20 05/10/20 14:58 15:12 Temp 98.3 98.3 Pulse 108 Resp 16 B/P (MAP) 102/52 (69) Pulse Ox 97 92 O2 Delivery Nasal Cannula Nasal Cannula O2 Flow Rate 3.0 4.0 Intake and Output 7/30/20 7/30/20 7/31/20 15:00 23:00 07:00 Intake Total 50 ml Output Total 195 ml 300 ml 950 ml Balance -195 ml -300 ml -900 ml Nutrition Consultation Dietary Evaluation: Recommendations by RD: Dietary education by RD, Increase Calorie Intake, Protein supplementation Comments: REC regular diet w/ground meats and soft foods (pt likes mashed potatoes, pudding) REC Ensure pudding (vanilla) w/lunch trays REC Ensure (vanilla) w/breakfast and dinner Expected Outcomes/Goals: PO intake to meet >75% est needs Malnutrition Findings: Food and Nutrition Intake (Mod: <75% est energy req 7days Weight Status: Underweight Justicifation of Admission Dx: Justifications for Admission: Justification of Admission Dx: Yes Fracture: Fracture ALFREDA DE LA CRUZ MD May 10, 2020 15:25
[2020-05-10 19:19] VITALS: BP 140/71
[2020-05-10 22:04] VITALS: BP 140/81
[2020-05-11] MEDS: oxyCODONE/APAP 5/325 1 TAB TABLET PO PRN ×2 (00:50→20:51)
[2020-05-11 03:23] VITALS: BP 136/72
[2020-05-11] MEDS: AMINO AC 3%/ELECTROLYTE/GLYCER 1,000 ML IV SCH ×3 (07:08→13:35)
[2020-05-11 07:27] VITALS: BP 135/69
[2020-05-11] MEDS: IPRATRPIUM/ALBUTEROL 0.5/2.5MG 3 ML NEBU. NEB SCH ×4 (07:50→20:16)
[2020-05-11] MEDS: BUDESONIDE 0.5 MG/2 ML NEBU. NEB SCH ×2 (07:50→20:16)
[2020-05-11] MEDS: ENOXAPARIN 30 MG/0.3 ML SYRINGE. SQ SCH (08:47)
--- NOTE | 2020-05-11 11:20 | PDOC ---
PULMONARY PROGRESS NOTES Subjective extubated 05/08 on N/C no SOA, or cough on home 02 no concerns from nursing overnight Vitals Vital Signs Date Time Temp Pulse Resp B/P (MAP) Pulse Ox O2 Delivery O2 Flow Rate FiO2 05/11/20 08:15 Nasal Cannula 3.0 05/11/20 07:54 100 05/11/20 07:27 97.9 101 16 135/69 (91) 97.9 ROS: No Nausea, No Chest Pain, No Abdominal Pain, No Increase Cough General: Alert HEENT: Other (nc at perrl) Lungs: Clear Cardiovascular: S1, S2 Abdomen: Soft, Non-tender Neuro Exam: Alert Extremities: No Edema Skin: Warm Labs Laboratory Tests Test 05/10/20 03:45 Sodium Level 140 mmol/L (136-145) Potassium Level 4.3 mmol/L (3.5-5.1) Chloride Level 103 mmol/L (98-107) Carbon Dioxide Level 30 mmol/L (21-32) Anion Gap 7 (6-14) Blood Urea Nitrogen 30 mg/dL (-20) Creatinine 0.9 mg/dL (0.6-1.0) Estimated GFR (Cockcroft-Gault) 59.2 Glucose Level 143 mg/dL (70-99) Calcium Level 8.1 mg/dL (8.5-10.1) Magnesium Level 2.0 mg/dL (1.8-2.4) Medications Active Scripts Medications Dose Route/Sig Max Daily Dose Days Date Category Benefiber (Wheat Dextrin) 1 Each Powd.pack 1 Each PO PRN DAILY PRN 05/08/20 Reported [Albuterol Inhaler] 05/08/20 Reported [Advair] 05/08/20 Reported Atrovent Hfa (Ipratropium [place]) 12.9 Gm Hfa.aer.ad 2 Puff IH QID 05/08/20 Reported [synthroid] 05/08/20 Reported [Diltiazem] 05/08/20 Reported Montelukast Sodium Tablet (Montelukast Sodium) 10 Mg Tablet 10 Mg PO HS 05/08/20 Reported Claritin-D 24 Hour Tablet (Loratadine/Pseudoephedrine) 1 Each Tab.er.24h 1 Tab PO DAILY 10 05/08/20 Reported Flonase Allergy Relief (Fluticasone Propionate) 9.9 Ml [place].susp 2 Sprays NS DAILY 05/08/20 Reported Impression . IMPRESSION: 1. Ydvyl-[id number]-[id number] hypercapnic respiratory failure which is expected in a patient who underwent left hip surgery - extubated 05/08 2. Underlying chronic obstructive pulmonary disease. 3. Left intertrochanteric hip fracture, status post closed reduction and intramedullary nailing of the left intertrochanteric hip fracture. 4. THANIA Plan . RECOMMENDATIONS: 1. Extubated 05/08, now on 3 liters N/C tolerating well 2. Continue DuoNeb and pulmicort 3. Lovenox for DVT prophylaxis. 4. Empiric antibiotic per Ortho. 5. Continue supportive care. 6. pt t Discussed with RN pt and her daughter JACQUI KHOURY MD May 11, 2020 11:20
[2020-05-11 11:38] VITALS: BP 100/43
[2020-05-11 15:05] VITALS: BP 114/56
--- NOTE | 2020-05-11 16:30 | PDOC ---
PROGRESS NOTES Chief Complaint Chief Complaint Acute comminuted intertrochanteric left hip fracture which is moderately displaced. Lesser trochanter is medially displaced. Mechanical fall Mild osteopenia COPD Acute hypokalemia Hypercapnia Left mid lung nodule Appreciate Ortho recommendations for postoperative care and advancing diet Appreciate pulmonary recommendations Dementia prevention protocol Lovenox for DVT prophylaxis Protonix GI prophylaxis ADA diet Full code Discussed with RN History of Present Illness History of Present Illness 05/11. minimally stronger, still a little confused 2 person assist to stand, poor stability to try to walk, will need SNU, lives alone 05/10,. doing well, getting better, very weak, has ivan, plan SNU, maybe 1-2 days 05/09/2020 Patient's extubated and saturating well on room air. Pain is well controlled. Patient has baseline dementia. She is not agitated or confused. She is alert and awake oriented x2. Patient's chart, labs, images were reviewed and discussed with RN Vitals Vitals Vital Signs Date Time Temp Pulse Resp B/P (MAP) Pulse Ox O2 Delivery O2 Flow Rate FiO2 05/11/20 15:24 Nasal Cannula 2.0 05/11/20 15:05 97.9 104 18 114/56 (75) 100 97.9 Physical Exam Physical Exam GEN: No apparent distress. Alert and oriented HEENT: Normal cephalic, atraumatic, external auditory canals are patent NECK: Supple, no JVD, no thyromegaly was noted LUNGS: Bilateral crackles HEART: RRR, S1, S2 present. Peripheral pulses intact, no obvious murmurs noted ABDOMEN: Soft, nontender. Positive bowel sounds, no organomegaly, normal bowel sounds EXTREMITIES: No bilateral pedal edema. Dressings are clean dry intact. Hips is stable General: Alert, Cooperative, No acute distress Heart: Regular rate Lungs: Clear Abdomen: Normal bowel sounds, Soft, No tenderness Extremities: No clubbing Skin: No breakdown Comment Review of Relevant I have reviewed the following items cameron (where applicable) has been applied. Labs Laboratory Tests Test 05/10/20 03:45 Sodium Level 140 mmol/L (136-145) Potassium Level 4.3 mmol/L (3.5-5.1) Chloride Level 103 mmol/L (98-107) Carbon Dioxide Level 30 mmol/L (21-32) Anion Gap 7 (6-14) Blood Urea Nitrogen 30 mg/dL (7-20) Creatinine 0.9 mg/dL (0.6-1.0) Estimated GFR (Cockcroft-Gault) 59.2 Glucose Level 143 mg/dL (70-99) Calcium Level 8.1 mg/dL (8.5-10.1) Magnesium Level 2.0 mg/dL (1.8-2.4) Medications Current Medications Fentanyl Citrate (Fentanyl 2ml Vial) 25 mcg 1X ONCE IVP Last administered on 05/07/20at 18:12; Start 05/07/20 at 17:45; Stop 05/07/20 at 17:46; Status DC Albuterol Sulfate (Ventolin Neb Soln) 2.5 mg 1X ONCE NEB Last administered on 05/07/20at 18:28; Start 05/07/20 at 17:45; Stop 05/07/20 at 17:46; Status DC Fentanyl Citrate (Fentanyl 2ml Vial) 50 mcg 1X ONCE IVP Last administered on 05/07/20at 18:47; Start 05/07/20 at 18:45; Stop 05/07/20 at 18:46; Status DC Potassium Chloride (Klor-Con) 40 meq 1X PRN PO PER PROTOCOL; Start 05/07/20 at 20:30 Potassium Chloride/Water 100 ml @ 100 mls/hr PRN Q1HR PRN IV SEE COMMENTS; Start 05/07/20 at 20:30 Potassium Phos/ Sodium Phos (Phos-Nak) 1 pkt PRN BID PRN PO SEE COMMENTS; Start 05/07/20 at 21:00 Potassium Bicarbonate (Potassium Effervescent Tablet) 40 meq PRN Q4HRS PRN PO SEE COMMENTS; Start 05/07/20 at 20:30 Potassium Chloride/Water 100 ml @ 100 mls/hr PRN Q1HR PRN IV SEE COMMENTS; Start 05/07/20 at 20:30 Hydromorphone HCl (Dilaudid) 0.2 mg PRN Q1HR PRN IV PAIN Last administered on 05/09/20at 11:27; Start 05/07/20 at 20:30; Stop 05/09/20 at 13:28; Status DC Potassium Chloride (Klor-Con) 40 meq 1X ONCE PO Last administered on 05/07/20at 22:27; Start 05/07/20 at 21:00; Stop 05/07/20 at 21:01; Status DC Albuterol Sulfate (Ventolin Neb Soln) 2.5 mg PRN QID PRN NEB SHORTNESS OF BREATH Last administered on 05/08/20at 12:42; Start 05/07/20 at 21:45 Enoxaparin Sodium (Lovenox 30mg Syringe) 30 mg 1X ONCE SQ ; Start 05/07/20 at 21:45; Stop 05/07/20 at 21:46; Status DC Propofol (Diprivan) 200 mg STK-MED ONCE IV ; Start 05/08/20 at 08:37; Stop 05/08/20 at 08:38; Status DC Lidocaine HCl (Lidocaine Pf 2% Vial) 5 ml STK-MED ONCE .ROUTE ; Start 05/08/20 at 08:37; Stop 05/08/20 at 08:38; Status DC Fentanyl Citrate (Fentanyl 2ml Vial) 100 mcg STK-MED ONCE .ROUTE ; Start 05/08/20 at 08:37; Stop 05/08/20 at 08:38; Status DC Morphine Sulfate 5 mg/Ropivacaine 60 ml/Epinephrine HCl 0.5 mg/Sodium Chloride 99 ml @ 99 mls/hr 1X ONCE INT ART Last administered on 05/08/20at 10:33; Start 05/08/20 at 09:00; Stop 05/08/20 at 09:59; Status DC Cefazolin Sodium/ Dextrose 50 ml @ 100 mls/hr 1X ONCE IV Last administered on 05/08/20at 10:04; Start 05/08/20 at 08:49; Stop 05/08/20 at 09:18; Status DC Fentanyl Citrate (Fentanyl 2ml Vial) 100 mcg STK-MED ONCE .ROUTE ; Start 05/08/20 at 09:12; Stop 05/08/20 at 09:12; Status DC Ondansetron HCl (Zofran) 4 mg PRN Q6HRS PRN IV NAUSEA/VOMITING; Start 05/08/20 at 09:30; Stop 05/08/20 at 16:00; Status DC Fentanyl Citrate (Fentanyl 2ml Vial) 25 mcg PRN Q5MIN PRN IV MILD PAIN 1-3; Start 05/08/20 at 09:30; Stop 05/08/20 at 16:00; Status DC Fentanyl Citrate (Fentanyl 2ml Vial) 50 mcg PRN Q5MIN PRN IV MODERATE TO SEVERE PAIN; Start 05/08/20 at 09:30; Stop 05/08/20 at 16:00; Status DC Morphine Sulfate (Morphine Sulfate) 1 mg PRN Q10MIN PRN IV SEVERE PAIN 7-10; Start 05/08/20 at 09:30; Stop 05/08/20 at 16:00; Status DC Ringer's Solution 1,000 ml @ 30 mls/hr Q24H IV Last administered on 05/08/20at 08:00; Start 05/08/20 at 09:18; Stop 05/08/20 at 21:17; Status DC Lidocaine HCl (Xylocaine-Mpf 1% 2ml Vial) 2 ml PRN 1X PRN ID PRIOR TO IV START; Start 05/08/20 at 09:30; Stop 05/08/20 at 16:00; Status DC Hydromorphone HCl (Dilaudid) 0.5 mg PRN Q10MIN PRN IV SEV PAIN, Second choice; Start 05/08/20 at 09:30; Stop 05/08/20 at 16:00; Status DC Prochlorperazine Edisylate (Compazine) 5 mg PACU PRN PRN IV NAUSEA, MRX1; Start 05/08/20 at 09:30; Stop 05/08/20 at 16:00; Status DC Cefazolin Sodium (Ancef) 1 gm Q6H IVP ; Start 05/08/20 at 09:45; Stop 05/08/20 at 21:46; Status UNV Phenylephrine HCl (PHENYLEPHRINE in 0.9% NACL PF) 1 mg STK-MED ONCE IV ; Start 05/08/20 at 10:26; Stop 05/08/20 at 10:26; Status DC Phenylephrine HCl ([place]annan-Synephrine Inj) 10 mg STK-MED ONCE .ROUTE ; Start 05/08/20 at 10:26; Stop 05/08/20 at 10:27; Status DC Sevoflurane (Ultane) 60 ml STK-MED ONCE IH ; Start 05/08/20 at 10:33; Stop 05/08/20 at 10:33; Status DC Ephedrine Sulfate (ePHEDrine PF IN SALINE SYRINGE) 50 mg STK-MED ONCE IV ; Start 05/08/20 at 10:40; Stop 05/08/20 at 10:40; Status DC Ondansetron HCl (Zofran) 4 mg STK-MED ONCE .ROUTE ; Start 05/08/20 at 10:47; Stop 05/08/20 at 10:47; Status DC Clindamycin Phosphate 50 ml @ 100 mls/hr Q8H IV Last administered on 05/09/20at 06:38; Start 05/08/20 at 15:00; Stop 05/09/20 at 07:29; Status DC Enoxaparin Sodium (Lovenox 30mg Syringe) 30 mg DAILY SQ Last administered on 05/11/20at 08:47; Start 05/09/20 at 09:00 Albuterol/ Ipratropium (Duoneb) 3 ml RTQID NEB Last administered on 05/11/20at 15:24; Start 05/08/20 at 16:00 Ringer's Solution 1,000 ml @ 250 mls/hr Q4H ONCE IV Last administered on 05/08/20at 12:58; Start 05/08/20 at 13:00; Stop 05/08/20 at 16:59; Status DC Sodium Chloride 500 ml @ 250 mls/hr 1X ONCE IV Last administered on 05/08/20at 20:15; Start 05/08/20 at 20:15; Stop 05/08/20 at 22:14; Status DC Sodium Chloride 1,000 ml @ 100 mls/hr Q10H IV Last administered on 05/09/20at 09:41; Start 05/08/20 at 20:15; Stop 05/09/20 at 12:50; Status DC Sodium Chloride 250 ml @ 250 mls/hr 1X ONCE IV Last administered on 05/08/20at 21:23; Start 05/08/20 at 21:30; Stop 05/08/20 at 22:29; Status DC Sodium Chloride 500 ml @ 500 mls/hr 1X ONCE IV Last administered on 05/08/20at 23:27; Start 05/08/20 at 23:00; Stop 05/08/20 at 23:59; Status DC Albumin Human 500 ml @ 125 mls/hr 1X ONCE IV Last administered on 05/09/20at 02:00; Start 05/09/20 at 02:00; Stop 05/09/20 at 05:59; Status DC Sodium Chloride 500 ml @ 500 mls/hr 1X ONCE IV Last administered on 05/09/20at 02:00; Start 05/09/20 at 02:00; Stop 05/09/20 at 02:59; Status DC Budesonide (Pulmicort) 0.5 mg RTBID NEB Last administered on 05/11/20at 07:50; Start 05/09/20 at 10:00 Amino Acids/ Glycerin/ Electrolytes 1,000 ml @ 80 mls/hr [id number] IV Last administered on 05/10/20at 02:30; Start 05/09/20 at 13:00 Acetaminophen (Tylenol) 650 mg PRN Q6HRS PRN PO MILD PAIN 1-3; Start 05/09/20 at 13:30 Oxycodone/ Acetaminophen (Percocet 5/325) 1 tab PRN Q6HRS PRN PO MODERATE TO SEVERE PAIN Last administered on 05/11/20at 00:50; Start 05/09/20 at 13:30 Active Scripts Active Reported Benefiber (Wheat Dextrin) 1 Each Powd.pack 1 Each PO PRN DAILY PRN [Albuterol Inhaler] [Advair] Atrovent Hfa (Ipratropium [place]) 12.9 Gm Hfa.aer.ad 2 Puff IH QID [synthroid] [Diltiazem] Montelukast Sodium Tablet (Montelukast Sodium) 10 Mg Tablet 10 Mg PO HS Claritin-D 24 Hour Tablet (Loratadine/Pseudoephedrine) 1 Each Tab.er.24h 1 Tab PO DAILY 10 Days Flonase Allergy Relief (Fluticasone Propionate) 9.9 Ml [place].susp 2 Sprays NS DAILY Vitals/I & O Vital Sign - Last 24 Hours 05/10/20 05/10/20 05/10/20 05/10/20 19:17 19:19 19:19 19:45 Temp 98.7 98.7 Pulse 115 Resp 20 B/P (MAP) 140/71 (94) Pulse Ox 98 98 99 O2 Delivery Nasal Cannula Nasal Cannula Aerosol Mask Nasal Cannula O2 Flow Rate 3.0 3.0 3.0 05/10/20 05/11/20 05/11/20 05/11/20 22:04 00:50 01:50 03:23 Temp 97.7 97.6 97.7 97.6 Pulse 115 104 Resp 18 18 B/P (MAP) 140/81 (100) 136/72 (93) Pulse Ox 98 100 O2 Delivery Nasal Cannula Nasal Cannula Nasal Cannula Nasal Cannula O2 Flow Rate 3.0 3.0 3.0 3.0 05/11/20 05/11/20 05/11/20 05/11/20 07:27 07:54 08:15 11:38 Temp 97.9 97.8 97.9 97.8 Pulse 101 101 Resp 16 16 B/P (MAP) 135/69 (91) 100/43 (62) Pulse Ox 100 100 92 O2 Delivery Nasal Cannula Nasal Cannula Nasal Cannula Nasal Cannula O2 Flow Rate 3.0 3.0 3.0 3.0 05/11/20 05/11/20 05/11/20 11:40 15:05 15:24 Temp 97.9 97.9 Pulse 104 Resp 18 B/P (MAP) 114/56 (75) Pulse Ox 100 100 O2 Delivery Nasal Cannula Nasal Cannula Nasal Cannula O2 Flow Rate 2.0 5.0 2.0 Intake and Output 05/10/20 05/10/20 05/11/20 15:00 23:00 07:00 Intake Total 0 ml 100 ml Output Total 725 ml Balance 0 ml -625 ml Nutrition Consultation Dietary Evaluation: Recommendations by RD: Dietary education by RD, Increase Calorie Intake, Protein supplementation Comments: REC regular diet w/ground meats and soft foods (pt likes mashed potatoes, pudding) REC Ensure pudding (vanilla) w/lunch trays REC Ensure (vanilla) w/breakfast and dinner Expected Outcomes/Goals: PO intake to meet >75% est needs Malnutrition Findings: Food and Nutrition Intake (Mod: <75% est energy req 7days Weight Status: Underweight Justicifation of Admission Dx: Justifications for Admission: Justification of Admission Dx: Yes Fracture: Fracture ALFREDA DE LA CRUZ MD May 11, 2020 16:30
[2020-05-11 19:00] VITALS: BP 159/69
[2020-05-12 03:00] VITALS: BP 122/65
[2020-05-12] MEDS: AMINO AC 3%/ELECTROLYTE/GLYCER 1,000 ML IV SCH ×2 (03:30→16:00)
[2020-05-12] MEDS: IPRATRPIUM/ALBUTEROL 0.5/2.5MG 3 ML NEBU. NEB SCH ×4 (07:04→19:50)
[2020-05-12] MEDS: BUDESONIDE 0.5 MG/2 ML NEBU. NEB SCH ×2 (07:05→19:50)
[2020-05-12 07:32] VITALS: BP 143/73
[2020-05-12] MEDS: oxyCODONE/APAP 5/325 1 TAB TABLET PO PRN ×3 (08:08→23:25)
[2020-05-12] MEDS: ENOXAPARIN 30 MG/0.3 ML SYRINGE. SQ SCH (08:08)
[2020-05-12] MEDS ORDERED: DOCUSATE SODIUM 100 MG CAPSULE. PO PRN (10:45)
--- NOTE | 2020-05-12 11:17 | PDOC ---
PULMONARY PROGRESS NOTES Subjective extubated 05/08, feeling better on N/C no SOA, or cough on home 02 no concerns from nursing overnight Vitals Vital Signs Date Time Temp Pulse Resp B/P (MAP) Pulse Ox O2 Delivery O2 Flow Rate FiO2 05/12/20 11:07 Nasal Cannula 3.0 05/12/20 07:32 98.3 101 16 143/73 (96) 98 98.3 ROS: No Nausea, No Chest Pain, No Abdominal Pain, No Increase Cough General: Alert HEENT: Other (nc at perr) Lungs: Clear Cardiovascular: S1, S2 Abdomen: Soft, Non-tender Neuro Exam: Alert Extremities: No Edema Skin: Warm Medications Active Scripts Medications Dose Route/Sig Max Daily Dose Days Date Category Benefiber (Wheat Dextrin) 1 Each Powd.pack 1 Each PO PRN DAILY PRN 05/08/20 Reported [Albuterol Inhaler] 05/08/20 Reported [Advair] 05/08/20 Reported Atrovent Hfa (Ipratropium [place]) 12.9 Gm Hfa.aer.ad 2 Puff IH QID 05/08/20 Reported [synthroid] 05/08/20 Reported [Diltiazem] 05/08/20 Reported Montelukast Sodium Tablet (Montelukast Sodium) 10 Mg Tablet 10 Mg PO HS 05/08/20 Reported Claritin-D 24 Hour Tablet (Loratadine/Pseudoephedrine) 1 Each Tab.er.24h 1 Tab PO DAILY 10 05/08/20 Reported Flonase Allergy Relief (Fluticasone Propionate) 9.9 Ml [place].susp 2 Sprays NS DAILY 05/08/20 Reported Impression . IMPRESSION: 1. [id number] hypercapnic respiratory failure which is expected in a patient who underwent left hip surgery - extubated 05/08 2. Underlying chronic obstructive pulmonary disease. 3. Left intertrochanteric hip fracture, status post closed reduction and intramedullary nailing of the left intertrochanteric hip fracture. 4. THANIA, improving Plan . RECOMMENDATIONS: 1. Extubated 05/08, now on 3 liters N/C tolerating well, cont BD 2. Continue DuoNeb and pulmicort 3. Lovenox for DVT prophylaxis. 4. Empiric antibiotic per Ortho. 5. Continue supportive care. 6. pt ot Discussed with RN pt and her daughter JACQUI KHOURY MD May 12, 2020 11:17
[2020-05-12] MEDS: POLYETHYLENE GLYCOL 3350 17 GM PACKET. PO SCH (11:25)
[2020-05-12 11:28] VITALS: BP 103/44
--- NOTE | 2020-05-12 12:20 | PDOC ---
PROGRESS NOTES Chief Complaint Chief Complaint Acute comminuted intertrochanteric left hip fracture which is moderately displaced. Lesser trochanter is medially displaced. Mechanical fall Mild osteopenia COPD Acute hypokalemia Hypercapnia Left mid lung nodule Appreciate Ortho recommendations for postoperative care and advancing diet Appreciate pulmonary recommendations Dementia prevention protocol Lovenox for DVT prophylaxis Protonix GI prophylaxis ADA diet Full code Discussed with RN History of Present Illness History of Present Illness 05/12. doing a little btter, left calf is contracted, will consult Dr. Candelaria, cont other, OOB with assist, can walk about 15 feet with max assist 05/11. minimally stronger, still a little confused 2 person assist to stand, poor stability to try to walk, will need SNU, lives alone 05/10,. doing well, getting better, very weak, has ivan, plan SNU, maybe 1-2 days 05/09/2020 Patient's extubated and saturating well on room air. Pain is well controlled. Patient has baseline dementia. She is not agitated or confused. She is alert and awake oriented x2. Patient's chart, labs, images were reviewed and discussed with RN Vitals Vitals Vital Signs Date Time Temp Pulse Resp B/P (MAP) Pulse Ox O2 Delivery O2 Flow Rate FiO2 05/12/20 11:28 97.8 99 18 103/44 (63) 92 Nasal Cannula 3.0 97.8 Physical Exam Physical Exam GEN: No apparent distress. Alert and oriented HEENT: Normal cephalic, atraumatic, external auditory canals are patent NECK: Supple, no JVD, no thyromegaly was noted LUNGS: Bilateral crackles HEART: RRR, S1, S2 present. Peripheral pulses intact, no obvious murmurs noted ABDOMEN: Soft, nontender. Positive bowel sounds, no organomegaly, normal bowel sounds EXTREMITIES: No bilateral pedal edema. Dressings are clean dry intact. Hips is stable General: Alert, Cooperative, No acute distress Heart: Regular rate Lungs: Clear Abdomen: Normal bowel sounds, Soft, No tenderness Extremities: No clubbing Skin: No breakdown Comment Review of Relevant I have reviewed the following items cameron (where applicable) has been applied. Medications Current Medications Fentanyl Citrate (Fentanyl 2ml Vial) 25 mcg 1X ONCE IVP Last administered on 05/07/20at 18:12; Start 05/07/20 at 17:45; Stop 05/07/20 at 17:46; Status DC Albuterol Sulfate (Ventolin Neb Soln) 2.5 mg 1X ONCE NEB Last administered on 05/07/20at 18:28; Start 05/07/20 at 17:45; Stop 05/07/20 at 17:46; Status DC Fentanyl Citrate (Fentanyl 2ml Vial) 50 mcg 1X ONCE IVP Last administered on 05/07/20at 18:47; Start 05/07/20 at 18:45; Stop 05/07/20 at 18:46; Status DC Potassium Chloride (Klor-Con) 40 meq 1X PRN PO PER PROTOCOL; Start 05/07/20 at 20:30 Potassium Chloride/Water 100 ml @ 100 mls/hr PRN Q1HR PRN IV SEE COMMENTS; Start 05/07/20 at 20:30 Potassium Phos/ Sodium Phos (Phos-Nak) 1 pkt PRN BID PRN PO SEE COMMENTS; Start 05/07/20 at 21:00 Potassium Bicarbonate (Potassium Effervescent Tablet) 40 meq PRN Q4HRS PRN PO SEE COMMENTS; Start 05/07/20 at 20:30 Potassium Chloride/Water 100 ml @ 100 mls/hr PRN Q1HR PRN IV SEE COMMENTS; Start 05/07/20 at 20:30 Hydromorphone HCl (Dilaudid) 0.2 mg PRN Q1HR PRN IV PAIN Last administered on 05/09/20at 11:27; Start 05/07/20 at 20:30; Stop 05/09/20 at 13:28; Status DC Potassium Chloride (Klor-Con) 40 meq 1X ONCE PO Last administered on 05/07/20at 22:27; Start 05/07/20 at 21:00; Stop 05/07/20 at 21:01; Status DC Albuterol Sulfate (Ventolin Neb Soln) 2.5 mg PRN QID PRN NEB SHORTNESS OF BREATH Last administered on 05/08/20at 12:42; Start 05/07/20 at 21:45 Enoxaparin Sodium (Lovenox 30mg Syringe) 30 mg 1X ONCE SQ ; Start 05/07/20 at 21:45; Stop 05/07/20 at 21:46; Status DC Propofol (Diprivan) 200 mg STK-MED ONCE IV ; Start 05/08/20 at 08:37; Stop 05/08/20 at 08:38; Status DC Lidocaine HCl (Lidocaine Pf 2% Vial) 5 ml STK-MED ONCE .ROUTE ; Start 05/08/20 at 08:37; Stop 05/08/20 at 08:38; Status DC Fentanyl Citrate (Fentanyl 2ml Vial) 100 mcg STK-MED ONCE .ROUTE ; Start 05/08/20 at 08:37; Stop 05/08/20 at 08:38; Status DC Morphine Sulfate 5 mg/Ropivacaine 60 ml/Epinephrine HCl 0.5 mg/Sodium Chloride 99 ml @ 99 mls/hr 1X ONCE INT ART Last administered on 05/08/20at 10:33; Start 05/08/20 at 09:00; Stop 05/08/20 at 09:59; Status DC Cefazolin Sodium/ Dextrose 50 ml @ 100 mls/hr 1X ONCE IV Last administered on 05/08/20at 10:04; Start 05/08/20 at 08:49; Stop 05/08/20 at 09:18; Status DC Fentanyl Citrate (Fentanyl 2ml Vial) 100 mcg STK-MED ONCE .ROUTE ; Start 05/08/20 at 09:12; Stop 05/08/20 at 09:12; Status DC Ondansetron HCl (Zofran) 4 mg PRN Q6HRS PRN IV NAUSEA/VOMITING; Start 05/08/20 at 09:30; Stop 05/08/20 at 16:00; Status DC Fentanyl Citrate (Fentanyl 2ml Vial) 25 mcg PRN Q5MIN PRN IV MILD PAIN 1-3; Start 05/08/20 at 09:30; Stop 05/08/20 at 16:00; Status DC Fentanyl Citrate (Fentanyl 2ml Vial) 50 mcg PRN Q5MIN PRN IV MODERATE TO SEVERE PAIN; Start 05/08/20 at 09:30; Stop 05/08/20 at 16:00; Status DC Morphine Sulfate (Morphine Sulfate) 1 mg PRN Q10MIN PRN IV SEVERE PAIN 7-10; Start 05/08/20 at 09:30; Stop 05/08/20 at 16:00; Status DC Ringer's Solution 1,000 ml @ 30 mls/hr Q24H IV Last administered on 05/08/20at 08:00; Start 05/08/20 at 09:18; Stop 05/08/20 at 21:17; Status DC Lidocaine HCl (Xylocaine-Mpf 1% 2ml Vial) 2 ml PRN 1X PRN ID PRIOR TO IV START; Start 05/08/20 at 09:30; Stop 05/08/20 at 16:00; Status DC Hydromorphone HCl (Dilaudid) 0.5 mg PRN Q10MIN PRN IV SEV PAIN, Second choice; Start 05/08/20 at 09:30; Stop 05/08/20 at 16:00; Status DC Prochlorperazine Edisylate (Compazine) 5 mg PACU PRN PRN IV NAUSEA, MRX1; Start 05/08/20 at 09:30; Stop 05/08/20 at 16:00; Status DC Cefazolin Sodium (Ancef) 1 gm Q6H IVP ; Start 05/08/20 at 09:45; Stop 05/08/20 at 21:46; Status UNV Phenylephrine HCl (PHENYLEPHRINE in 0.9% NACL PF) 1 mg STK-MED ONCE IV ; Start 05/08/20 at 10:26; Stop 05/08/20 at 10:26; Status DC Phenylephrine HCl (Kannan-Synephrine Inj) 10 mg STK-MED ONCE .ROUTE ; Start 05/08/20 at 10:26; Stop 05/08/20 at 10:27; Status DC Sevoflurane (Ultane) 60 ml STK-MED ONCE IH ; Start 05/08/20 at 10:33; Stop 05/08/20 at 10:33; Status DC Ephedrine Sulfate (ePHEDrine PF IN SALINE SYRINGE) 50 mg STK-MED ONCE IV ; Start 05/08/20 at 10:40; Stop 05/08/20 at 10:40; Status DC Ondansetron HCl (Zofran) 4 mg STK-MED ONCE .ROUTE ; Start 05/08/20 at 10:47; Stop 05/08/20 at 10:47; Status DC Clindamycin Phosphate 50 ml @ 100 mls/hr Q8H IV Last administered on 05/09/20at 06:38; Start 05/08/20 at 15:00; Stop 05/09/20 at 07:29; Status DC Enoxaparin Sodium (Lovenox 30mg Syringe) 30 mg DAILY SQ Last administered on 05/12/20at 08:08; Start 05/09/20 at 09:00 Albuterol/ Ipratropium (Duoneb) 3 ml RTQID NEB Last administered on 05/12/20at 11:06; Start 05/08/20 at 16:00 Ringer's Solution 1,000 ml @ 250 mls/hr Q4H ONCE IV Last administered on 05/08/20at 12:58; Start 05/08/20 at 13:00; Stop 05/08/20 at 16:59; Status DC Sodium Chloride 500 ml @ 250 mls/hr 1X ONCE IV Last administered on 05/08/20at 20:15; Start 05/08/20 at 20:15; Stop 05/08/20 at 22:14; Status DC Sodium Chloride 1,000 ml @ 100 mls/hr Q10H IV Last administered on 05/09/20at 09:41; Start 05/08/20 at 20:15; Stop 05/09/20 at 12:50; Status DC Sodium Chloride 250 ml @ 250 mls/hr 1X ONCE IV Last administered on 05/08/20at 21:23; Start 05/08/20 at 21:30; Stop 05/08/20 at 22:29; Status DC Sodium Chloride 500 ml @ 500 mls/hr 1X ONCE IV Last administered on 05/08/20at 23:27; Start 05/08/20 at 23:00; Stop 05/08/20 at 23:59; Status DC Albumin Human 500 ml @ 125 mls/hr 1X ONCE IV Last administered on 05/09/20at 02:00; Start 05/09/20 at 02:00; Stop 05/09/20 at 05:59; Status DC Sodium Chloride 500 ml @ 500 mls/hr 1X ONCE IV Last administered on 05/09/20at 02:00; Start 05/09/20 at 02:00; Stop 05/09/20 at 02:59; Status DC Budesonide (Pulmicort) 0.5 mg RTBID NEB Last administered on 05/12/20at 07:05; Start 05/09/20 at 10:00 Amino Acids/ Glycerin/ Electrolytes 1,000 ml @ 80 mls/hr [id number] IV Last administered on 05/10/20at 02:30; Start 05/09/20 at 13:00 Acetaminophen (Tylenol) 650 mg PRN Q6HRS PRN PO MILD PAIN 1-3; Start 05/09/20 at 13:30 Oxycodone/ Acetaminophen (Percocet 5/325) 1 tab PRN Q6HRS PRN PO MODERATE TO SEVERE PAIN Last administered on 05/12/20at 08:08; Start 05/09/20 at 13:30 Docusate Sodium (Colace) 100 mg PRN DAILY PRN PO HARD STOOLS; Start 05/12/20 at 10:45 Polyethylene Glycol (miraLAX PACKET) 17 gm DAILY PO Last administered on 05/12/20at 11:25; Start 05/12/20 at 11:30 Active Scripts Active Reported Benefiber (Wheat Dextrin) 1 Each Powd.pack 1 Each PO PRN DAILY PRN [Albuterol Inhaler] [Advair] Atrovent Hfa (Ipratropium [place]) 12.9 Gm Hfa.aer.ad 2 Puff IH QID [synthroid] [Diltiazem] Montelukast Sodium Tablet (Montelukast Sodium) 10 Mg Tablet 10 Mg PO HS Claritin-D 24 Hour Tablet (Loratadine/Pseudoephedrine) 1 Each Tab.er.24h 1 Tab PO DAILY 10 Days Flonase Allergy Relief (Fluticasone Propionate) 9.9 Ml [place].susp 2 Sprays NS DAILY Vitals/I & O Vital Sign - Last 24 Hours 05/11/20 05/11/20 05/11/20 05/11/20 15:05 15:24 19:00 19:40 Temp 97.9 98.1 97.9 98.1 Pulse 104 106 Resp 18 18 B/P (MAP) 114/56 (75) 159/69 (99) Pulse Ox 100 92 O2 Delivery Nasal Cannula Nasal Cannula Nasal Cannula Nasal Cannula O2 Flow Rate 5.0 2.0 5.0 3.0 05/11/20 05/11/20 05/11/20 05/11/20 20:17 20:19 20:51 23:00 Pulse 99 Resp 20 B/P (MAP) Pulse Ox 100 100 95 O2 Delivery Nasal Cannula Nasal Cannula Room Air Nasal Cannula O2 Flow Rate 3.0 3.0 3.0 8/2/20 8/2/20 8/2/20 8/2/20 03:00 07:07 07:32 08:00 Temp 98.1 98.3 98.1 98.3 Pulse 106 101 Resp 18 16 B/P (MAP) 122/65 (84) 143/73 (96) Pulse Ox 99 96 98 O2 Delivery Nasal Cannula Nasal Cannula Nasal Cannula Nasal Cannula O2 Flow Rate 3.0 3.0 3.0 3.0 05/12/20 05/12/20 05/12/20 05/12/20 08:08 09:08 11:07 11:28 Temp 97.8 97.8 Pulse 99 Resp 18 B/P (MAP) 103/44 (63) Pulse Ox 92 O2 Delivery Nasal Cannula Room Air Nasal Cannula Nasal Cannula O2 Flow Rate 3.0 3.0 Intake and Output 05/11/20 05/11/20 05/12/20 15:00 23:00 07:00 Intake Total 300 ml 120 ml Output Total 100 ml 750 ml Balance 300 ml 20 ml -750 ml Nutrition Consultation Dietary Evaluation: Recommendations by RD: Dietary education by RD, Increase Calorie Intake, Protein supplementation Comments: REC regular diet w/ground meats and soft foods (pt likes mashed potatoes, pudding) REC Ensure pudding (vanilla) w/lunch trays REC Ensure (vanilla) w/breakfast and dinner Expected Outcomes/Goals: PO intake to meet >75% est needs Malnutrition Findings: Food and Nutrition Intake (Mod: <75% est energy req 7days Weight Status: Underweight Justicifation of Admission Dx: Justifications for Admission: Justification of Admission Dx: Yes Fracture: Fracture ALFREDA DE LA CRUZ MD May 12, 2020 12:19
[2020-05-12 15:35] VITALS: BP 131/61
[2020-05-12 19:00] VITALS: BP 115/66
[2020-05-12 23:00] VITALS: BP 129/69
[2020-05-13 03:00] VITALS: BP 155/82
[2020-05-13] MEDS: AMINO AC 3%/ELECTROLYTE/GLYCER 1,000 ML IV SCH (04:30)
[2020-05-13 05:01] LABS: BASO % 1 % (0-3); EOS # 0.3 x10^3/uL (0.0-0.7); EOS % 4 % (0-3); HEMATOCRIT 25.7 % (36.0-47.0); HEMOGLOBIN 8.6 g/dL (12.0-15.5); LYMPH # 0.8 x10^3/uL (1.0-4.8); LYMPH % 11 % (24-48); MEAN CORPUSCULAR HEMOGLOBIN 30 pg (25-35); MEAN CORPUSCULAR HGB CONC 33 g/dL (31-37); MEAN CORPUSCULAR VOLUME 89 fL (79-100); MONO % 14 % (0-9); NEUT # 5.3 x10^3/uL (1.8-7.7); NEUT % 71 % (31-73); PLATELET COUNT 277 x10^3/uL (140-400); RED BLOOD COUNT 2.89 x10^6/uL (3.50-5.40); WHITE BLOOD COUNT 7.5 x10^3/uL (4.0-11.0)
[2020-05-13 05:15] LABS: CALCIUM 8.8 mg/dL (8.5-10.1); CREATININE 0.7 mg/dL (0.6-1.0); GFR 79.2; POTASSIUM 5.1 mmol/L (3.5-5.1)
[2020-05-13] MEDS: IPRATRPIUM/ALBUTEROL 0.5/2.5MG 3 ML NEBU. NEB SCH ×2 (06:39→11:09)
[2020-05-13] MEDS: BUDESONIDE 0.5 MG/2 ML NEBU. NEB SCH (06:39)
[2020-05-13 07:00] VITALS: BP 127/64
--- NOTE | 2020-05-13 08:36 | NUR ---
DOUG following. Discussed with RN, DOUG contacted [place] to determine acceptance decision - Olinda will call DOUG back with decision, after speaking with DON. Family agreeable to other facilities in the [facility] area. [facility]G will continue to follow. Addendum: 05/13/20 at 1020 by VIOLA CAMACHO [facility] accepted pt, discharge orders faxed, awaiting transportation time. Pt's daughter, Stephen notified. RN notified.
[2020-05-13] MEDS ORDERED: SENNOSIDES/DOCUSATE 8.6/50MG TABLET. PO SCH (09:15)
[2020-05-13] MEDS: POLYETHYLENE GLYCOL 3350 17 GM PACKET. PO SCH (09:15)
[2020-05-13] MEDS: ENOXAPARIN 30 MG/0.3 ML SYRINGE. SQ SCH (09:16)
--- NOTE | 2020-05-13 09:20 | PDOC ---
PROGRESS NOTES Chief Complaint Chief Complaint DISCHARGE DX Acute comminuted intertrochanteric left hip fracture which is moderately displaced. Lesser trochanter was medially displaced. Mechanical fall Mild osteopenia COPD, o2 dependent x 6 weeks Acute hypokalemia Hypercapnia Left mid lung nodule Appreciate Ortho recommendations for postoperative care and advancing diet Appreciate pulmonary recommendations FALL prevention protocol Lovenox for DVT prophylaxis Protonix GI prophylaxis ADA diet Full code Discussed with RN d/c to [facility] d/c planning 33 min History of Present Illness History of Present Illness 05/12. doing a little btter, left calf is contracted, will consult Dr. Candelaria, cont other, OOB with assist, can walk about 15 feet with max assist 05/11. minimally stronger, still a little confused 2 person assist to stand, poor stability to try to walk, will need SNU, lives alone 05/10,. doing well, getting better, very weak, has love, plan SNU, maybe 1-2 days 05/09/2020 Patient's extubated and saturating well on room air. Pain is well controlled. Patient has baseline dementia. She is not agitated or confused. She is alert and awake oriented x2. Patient's chart, labs, images were reviewed and discussed with RN Vitals Vitals Vital Signs Date Time Temp Pulse Resp B/P (MAP) Pulse Ox O2 Delivery O2 Flow Rate FiO2 05/13/20 07:00 98.1 95 18 127/64 (85) 95 Nasal Cannula 3.0 98.1 Physical Exam Physical Exam GEN: No apparent distress. Alert and oriented HEENT: Normal cephalic, atraumatic, external auditory canals are patent NECK: Supple, no JVD, no thyromegaly was noted LUNGS: mild exp wheezes HEART: RRR, S1, S2 present. Peripheral pulses intact, no obvious murmurs noted ABDOMEN: Soft, nontender. Positive bowel sounds, no organomegaly, normal bowel sounds EXTREMITIES: No bilateral pedal edema. Dressings are clean dry intact. Hips is stable General: Alert, Oriented X3, Cooperative, No acute distress Heart: Regular rate Lungs: Clear, Other (mild wheezing ) Abdomen: Normal bowel sounds, Soft, No tenderness Extremities: No clubbing Skin: No breakdown Labs LABS Laboratory Tests Test 05/13/20 04:10 White Blood Count 7.5 x10^3/uL (4.0-11.0) Red Blood Count 2.89 x10^6/uL (3.50-5.40) Hemoglobin 8.6 g/dL (12.0-15.5) Hematocrit 25.7 % (36.0-47.0) Mean Corpuscular Volume 89 fL (79-100) Mean Corpuscular Hemoglobin 30 pg (25-35) Mean Corpuscular Hemoglobin Concent 33 g/dL (31-37) Red Cell Distribution Width 16.0 % (11.5-14.5) Platelet Count 277 x10^3/uL (140-400) Neutrophils (%) (Auto) 71 % (31-73) Lymphocytes (%) (Auto) 11 % (24-48) Monocytes (%) (Auto) 14 % (0-9) Eosinophils (%) (Auto) 4 % (0-3) Basophils (%) (Auto) 1 % (0-3) Neutrophils # (Auto) 5.3 x10^3/uL (1.8-7.7) Lymphocytes # (Auto) 0.8 x10^3/uL (1.0-4.8) Monocytes # (Auto) 1.0 x10^3/uL (0.0-1.1) Eosinophils # (Auto) 0.3 x10^3/uL (0.0-0.7) Basophils # (Auto) 0.0 x10^3/uL (0.0-0.2) Sodium Level 141 mmol/L (136-145) Potassium Level 5.1 mmol/L (3.5-5.1) Chloride Level 102 mmol/L (98-107) Carbon Dioxide Level 39 mmol/L (21-32) Anion Gap 0 (6-14) Blood Urea Nitrogen 15 mg/dL (7-20) Creatinine 0.7 mg/dL (0.6-1.0) Estimated GFR (Cockcroft-Gault) 79.2 Glucose Level 117 mg/dL (70-99) Calcium Level 8.8 mg/dL (8.5-10.1) Comment Review of Relevant I have reviewed the following items cameron (where applicable) has been applied. Labs Laboratory Tests Test 05/13/20 04:10 White Blood Count 7.5 x10^3/uL (4.0-11.0) Red Blood Count 2.89 x10^6/uL (3.50-5.40) Hemoglobin 8.6 g/dL (12.0-15.5) Hematocrit 25.7 % (36.0-47.0) Mean Corpuscular Volume 89 fL (79-100) Mean Corpuscular Hemoglobin 30 pg (25-35) Mean Corpuscular Hemoglobin Concent 33 g/dL (31-37) Red Cell Distribution Width 16.0 % (11.5-14.5) Platelet Count 277 x10^3/uL (140-400) Neutrophils (%) (Auto) 71 % (31-73) Lymphocytes (%) (Auto) 11 % (24-48) Monocytes (%) (Auto) 14 % (0-9) Eosinophils (%) (Auto) 4 % (0-3) Basophils (%) (Auto) 1 % (0-3) Neutrophils # (Auto) 5.3 x10^3/uL (1.8-7.7) Lymphocytes # (Auto) 0.8 x10^3/uL (1.0-4.8) Monocytes # (Auto) 1.0 x10^3/uL (0.0-1.1) Eosinophils # (Auto) 0.3 x10^3/uL (0.0-0.7) Basophils # (Auto) 0.0 x10^3/uL (0.0-0.2) Sodium Level 141 mmol/L (136-145) Potassium Level 5.1 mmol/L (3.5-5.1) Chloride Level 102 mmol/L (98-107) Carbon Dioxide Level 39 mmol/L (21-32) Anion Gap 0 (6-14) Blood Urea Nitrogen 15 mg/dL (7-20) Creatinine 0.7 mg/dL (0.6-1.0) Estimated GFR (Cockcroft-Gault) 79.2 Glucose Level 117 mg/dL (70-99) Calcium Level 8.8 mg/dL (8.5-10.1) Laboratory Tests Test 05/13/20 04:10 White Blood Count 7.5 x10^3/uL (4.0-11.0) Red Blood Count 2.89 x10^6/uL (3.50-5.40) Hemoglobin 8.6 g/dL (12.0-15.5) Hematocrit 25.7 % (36.0-47.0) Mean Corpuscular Volume 89 fL (79-100) Mean Corpuscular Hemoglobin 30 pg (25-35) Mean Corpuscular Hemoglobin Concent 33 g/dL (31-37) Red Cell Distribution Width 16.0 % (11.5-14.5) Platelet Count 277 x10^3/uL (140-400) Neutrophils (%) (Auto) 71 % (31-73) Lymphocytes (%) (Auto) 11 % (24-48) Monocytes (%) (Auto) 14 % (0-9) Eosinophils (%) (Auto) 4 % (0-3) Basophils (%) (Auto) 1 % (0-3) Neutrophils # (Auto) 5.3 x10^3/uL (1.8-7.7) Lymphocytes # (Auto) 0.8 x10^3/uL (1.0-4.8) Monocytes # (Auto) 1.0 x10^3/uL (0.0-1.1) Eosinophils # (Auto) 0.3 x10^3/uL (0.0-0.7) Basophils # (Auto) 0.0 x10^3/uL (0.0-0.2) Sodium Level 141 mmol/L (136-145) Potassium Level 5.1 mmol/L (3.5-5.1) Chloride Level 102 mmol/L (98-107) Carbon Dioxide Level 39 mmol/L (21-32) Anion Gap 0 (6-14) Blood Urea Nitrogen 15 mg/dL (7-20) Creatinine 0.7 mg/dL (0.6-1.0) Estimated GFR (Cockcroft-Gault) 79.2 Glucose Level 117 mg/dL (70-99) Calcium Level 8.8 mg/dL (8.5-10.1) Medications Current Medications Fentanyl Citrate (Fentanyl 2ml Vial) 25 mcg 1X ONCE IVP Last administered on 05/07/20at 18:12; Start 05/07/20 at 17:45; Stop 05/07/20 at 17:46; Status DC Albuterol Sulfate (Ventolin Neb Soln) 2.5 mg 1X ONCE NEB Last administered on 05/07/20at 18:28; Start 05/07/20 at 17:45; Stop 05/07/20 at 17:46; Status DC Fentanyl Citrate (Fentanyl 2ml Vial) 50 mcg 1X ONCE IVP Last administered on 05/07/20at 18:47; Start 05/07/20 at 18:45; Stop 05/07/20 at 18:46; Status DC Potassium Chloride (Klor-Con) 40 meq 1X PRN PO PER PROTOCOL; Start 05/07/20 at 20:30 Potassium Chloride/Water 100 ml @ 100 mls/hr PRN Q1HR PRN IV SEE COMMENTS; Start 05/07/20 at 20:30 Potassium Phos/ Sodium Phos (Phos-Nak) 1 pkt PRN BID PRN PO SEE COMMENTS; Start 05/07/20 at 21:00 Potassium Bicarbonate (Potassium Effervescent Tablet) 40 meq PRN Q4HRS PRN PO SEE COMMENTS; Start 05/07/20 at 20:30 Potassium Chloride/Water 100 ml @ 100 mls/hr PRN Q1HR PRN IV SEE COMMENTS; Start 05/07/20 at 20:30 Hydromorphone HCl (Dilaudid) 0.2 mg PRN Q1HR PRN IV PAIN Last administered on 05/09/20at 11:27; Start 05/07/20 at 20:30; Stop 05/09/20 at 13:28; Status DC Potassium Chloride (Klor-Con) 40 meq 1X ONCE PO Last administered on 05/07/20at 22:27; Start 05/07/20 at 21:00; Stop 05/07/20 at 21:01; Status DC Albuterol Sulfate (Ventolin Neb Soln) 2.5 mg PRN QID PRN NEB SHORTNESS OF BREATH Last administered on 05/08/20at 12:42; Start 05/07/20 at 21:45 Enoxaparin Sodium (Lovenox 30mg Syringe) 30 mg 1X ONCE SQ ; Start 05/07/20 at 21:45; Stop 05/07/20 at 21:46; Status DC Propofol (Diprivan) 200 mg STK-MED ONCE IV ; Start 05/08/20 at 08:37; Stop 05/08/20 at 08:38; Status DC Lidocaine HCl (Lidocaine Pf 2% Vial) 5 ml STK-MED ONCE .ROUTE ; Start 05/08/20 at 08:37; Stop 05/08/20 at 08:38; Status DC Fentanyl Citrate (Fentanyl 2ml Vial) 100 mcg STK-MED ONCE .ROUTE ; Start 05/08/20 at 08:37; Stop 05/08/20 at 08:38; Status DC Morphine Sulfate 5 mg/Ropivacaine 60 ml/Epinephrine HCl 0.5 mg/Sodium Chloride 99 ml @ 99 mls/hr 1X ONCE INT ART Last administered on 05/08/20at 10:33; Start 05/08/20 at 09:00; Stop 05/08/20 at 09:59; Status DC Cefazolin Sodium/ Dextrose 50 ml @ 100 mls/hr 1X ONCE IV Last administered on 05/08/20at 10:04; Start 05/08/20 at 08:49; Stop 05/08/20 at 09:18; Status DC Fentanyl Citrate (Fentanyl 2ml Vial) 100 mcg STK-MED ONCE .ROUTE ; Start 05/08/20 at 09:12; Stop 05/08/20 at 09:12; Status DC Ondansetron HCl (Zofran) 4 mg PRN Q6HRS PRN IV NAUSEA/VOMITING; Start 05/08/20 at 09:30; Stop 05/08/20 at 16:00; Status DC Fentanyl Citrate (Fentanyl 2ml Vial) 25 mcg PRN Q5MIN PRN IV MILD PAIN 1-3; Start 05/08/20 at 09:30; Stop 05/08/20 at 16:00; Status DC Fentanyl Citrate (Fentanyl 2ml Vial) 50 mcg PRN Q5MIN PRN IV MODERATE TO SEVERE PAIN; Start 05/08/20 at 09:30; Stop 05/08/20 at 16:00; Status DC Morphine Sulfate (Morphine Sulfate) 1 mg PRN Q10MIN PRN IV SEVERE PAIN 7-10; Start 05/08/20 at 09:30; Stop 05/08/20 at 16:00; Status DC Ringer's Solution 1,000 ml @ 30 mls/hr Q24H IV Last administered on 05/08/20at 08:00; Start 05/08/20 at 09:18; Stop 05/08/20 at 21:17; Status DC Lidocaine HCl (Xylocaine-Mpf 1% 2ml Vial) 2 ml PRN 1X PRN ID PRIOR TO IV START; Start 05/08/20 at 09:30; Stop 05/08/20 at 16:00; Status DC Hydromorphone HCl (Dilaudid) 0.5 mg PRN Q10MIN PRN IV SEV PAIN, Second choice; Start 05/08/20 at 09:30; Stop 05/08/20 at 16:00; Status DC Prochlorperazine Edisylate (Compazine) 5 mg PACU PRN PRN IV NAUSEA, MRX1; Start 05/08/20 at 09:30; Stop 05/08/20 at 16:00; Status DC Cefazolin Sodium (Ancef) 1 gm Q6H IVP ; Start 05/08/20 at 09:45; Stop 05/08/20 at 21:46; Status UNV Phenylephrine HCl (PHENYLEPHRINE in 0.9% NACL PF) 1 mg STK-MED ONCE IV ; Start 05/08/20 at 10:26; Stop 05/08/20 at 10:26; Status DC Phenylephrine HCl (Kannan-Synephrine Inj) 10 mg STK-MED ONCE .ROUTE ; Start 05/08/20 at 10:26; Stop 05/08/20 at 10:27; Status DC Sevoflurane (Ultane) 60 ml STK-MED ONCE IH ; Start 05/08/20 at 10:33; Stop 05/08/20 at 10:33; Status DC Ephedrine Sulfate (ePHEDrine PF IN SALINE SYRINGE) 50 mg STK-MED ONCE IV ; Start 05/08/20 at 10:40; Stop 05/08/20 at 10:40; Status DC Ondansetron HCl (Zofran) 4 mg STK-MED ONCE .ROUTE ; Start 05/08/20 at 10:47; Stop 05/08/20 at 10:47; Status DC Clindamycin Phosphate 50 ml @ 100 mls/hr Q8H IV Last administered on 05/09/20at 06:38; Start 05/08/20 at 15:00; Stop 05/09/20 at 07:29; Status DC Enoxaparin Sodium (Lovenox 30mg Syringe) 30 mg DAILY SQ Last administered on 05/12/20at 08:08; Start 05/09/20 at 09:00 Albuterol/ Ipratropium (Duoneb) 3 ml RTQID NEB Last administered on 05/13/20at 06:39; Start 05/08/20 at 16:00 Ringer's Solution 1,000 ml @ 250 mls/hr Q4H ONCE IV Last administered on 05/08/20at 12:58; Start 05/08/20 at 13:00; Stop 05/08/20 at 16:59; Status DC Sodium Chloride 500 ml @ 250 mls/hr 1X ONCE IV Last administered on 05/08/20at 20:15; Start 05/08/20 at 20:15; Stop 05/08/20 at 22:14; Status DC Sodium Chloride 1,000 ml @ 100 mls/hr Q10H IV Last administered on 05/09/20at 09:41; Start 05/08/20 at 20:15; Stop 05/09/20 at 12:50; Status DC Sodium Chloride 250 ml @ 250 mls/hr 1X ONCE IV Last administered on 05/08/20at 21:23; Start 05/08/20 at 21:30; Stop 05/08/20 at 22:29; Status DC Sodium Chloride 500 ml @ 500 mls/hr 1X ONCE IV Last administered on 05/08/20at 23:27; Start 05/08/20 at 23:00; Stop 05/08/20 at 23:59; Status DC Albumin Human 500 ml @ 125 mls/hr 1X ONCE IV Last administered on 05/09/20at 02:00; Start 05/09/20 at 02:00; Stop 05/09/20 at 05:59; Status DC Sodium Chloride 500 ml @ 500 mls/hr 1X ONCE IV Last administered on 05/09/20at 02:00; Start 05/09/20 at 02:00; Stop 05/09/20 at 02:59; Status DC Budesonide (Pulmicort) 0.5 mg RTBID NEB Last administered on 05/13/20at 06:39; Start 05/09/20 at 10:00 Amino Acids/ Glycerin/ Electrolytes 1,000 ml @ 80 mls/hr [id number] IV Last administered on 05/10/20at 02:30; Start 05/09/20 at 13:00 Acetaminophen (Tylenol) 650 mg PRN Q6HRS PRN PO MILD PAIN 1-3; Start 05/09/20 at 13:30 Oxycodone/ Acetaminophen (Percocet 5/325) 1 tab PRN Q6HRS PRN PO MODERATE TO SEVERE PAIN Last administered on 05/12/20at 23:25; Start 05/09/20 at 13:30 Docusate Sodium (Colace) 100 mg PRN DAILY PRN PO HARD STOOLS; Start 05/12/20 at 10:45 Polyethylene Glycol (miraLAX PACKET) 17 gm DAILY PO Last administered on 05/12/20at 11:25; Start 05/12/20 at 11:30 Bisacodyl (Dulcolax Tab) 10 mg DAILY PO ; Start 05/13/20 at 10:00 Senna/Docusate Sodium (Senna Plus) 1 tab BID PO ; Start 05/13/20 at 09:15 Active Scripts Active Reported Benefiber (Wheat Dextrin) 1 Each Powd.pack 1 Each PO PRN DAILY PRN [Albuterol Inhaler] [Advair] Atrovent Hfa (Ipratropium [place]) 12.9 Gm Hfa.aer.ad 2 Puff IH QID [synthroid] [Diltiazem] Montelukast Sodium Tablet (Montelukast Sodium) 10 Mg Tablet 10 Mg PO HS Claritin-D 24 Hour Tablet (Loratadine/Pseudoephedrine) 1 Each Tab.er.24h 1 Tab PO DAILY 10 Days Flonase Allergy Relief (Fluticasone Propionate) 9.9 Ml Viburnum.susp 2 Sprays NS DAILY Vitals/I & O Vital Sign - Last 24 Hours 05/12/20 05/12/20 05/12/20 05/12/20 11:07 11:28 15:08 15:35 Temp 97.8 98.1 97.8 98.1 Pulse 99 96 Resp 18 18 B/P (MAP) 103/44 (63) 131/61 (84) Pulse Ox 92 87 99 O2 Delivery Nasal Cannula Nasal Cannula Nasal Cannula Nasal Cannula O2 Flow Rate 3.0 3.0 3.0 3.0 05/12/20 05/12/20 05/12/20 05/12/20 16:46 17:46 19:00 19:51 Temp 98.0 98.0 Pulse 90 Resp 18 B/P (MAP) 115/66 (82) Pulse Ox 98 98 O2 Delivery Nasal Cannula Nasal Cannula Nasal Cannula Nasal Cannula O2 Flow Rate 3.0 3.0 05/12/20 05/12/20 05/12/20 05/12/20 19:53 20:00 23:00 23:25 Temp 98.1 98.1 Pulse 92 Resp 18 20 B/P (MAP) 129/69 (89) Pulse Ox 98 97 98 O2 Delivery Nasal Cannula Nasal Cannula Nasal Cannula Nasal Cannula O2 Flow Rate 3.0 3.0 3.0 3.0 05/13/20 05/13/20 05/13/20 05/13/20 00:25 03:00 06:41 07:00 Temp 97.9 98.1 97.9 98.1 Pulse 89 95 Resp 20 18 18 B/P (MAP) 155/82 (106) 127/64 (85) Pulse Ox 98 96 97 95 O2 Delivery Nasal Cannula Nasal Cannula Nasal Cannula Nasal Cannula O2 Flow Rate 3.0 3.0 3.0 3.0 Intake and Output 05/12/20 05/12/20 05/13/20 15:00 23:00 07:00 Intake Total 300 ml 360 ml Output Total 800 ml Balance 300 ml -440 ml Nutrition Consultation Dietary Evaluation: Recommendations by RD: Dietary education by RD, Increase Calorie Intake, Protein supplementation Comments: REC regular diet w/ground meats and soft foods (pt likes mashed potatoes, pudding) REC Ensure pudding (vanilla) w/lunch trays REC Ensure (vanilla) w/breakfast and dinner Expected Outcomes/Goals: PO intake to meet >75% est needs Malnutrition Findings: Food and Nutrition Intake (Mod: <75% est energy req 7days Weight Status: Underweight Justicifation of Admission Dx: Justifications for Admission: Justification of Admission Dx: Yes Fracture: Fracture YUSEF NANCE MD May 13, 2020 09:20
[2020-05-13] MEDS: oxyCODONE/APAP 5/325 1 TAB TABLET PO PRN (09:23)
--- NOTE | 2020-05-13 09:54 | PDOC3 ---
Discharge Summary Date of Admission: May 07, 2020 Date of Discharge: May 13, 2020 Follow-Up: 1-2 days Admitting Diagnosis comment: DISCHARGE DX Acute comminuted intertrochanteric left hip fracture which is moderately displaced. Lesser trochanter was medially displaced. Mechanical fall Mild osteopenia COPD, o2 dependent x 6 weeks Acute hypokalemia Hypercapnia Left mid lung nodule Appreciate Ortho recommendations for postoperative care and advancing diet Appreciate pulmonary recommendations FALL prevention protocol Lovenox for DVT prophylaxis Protonix GI prophylaxis ADA diet Full code Discussed with RN d/c to [facility] d/c planning 33 min History of Present Illness History of Present Illness 05/12. doing a little btter, left calf is contracted, will consult Dr. Candelaria, tiesha other, OOB with assist, can walk about 15 feet with max assist 05/13. stronger, still a little confused 2 person assist to stand, poor stability to try to walk, will need SNU, lives alone D/W DAUGHTER IN ROOM 05/10,. doing well, getting better, very weak, has love, plan SNU, maybe 1-2 days 05/09/2020 Patient's extubated and saturating well on room air. Pain is well controlled. Patient has baseline dementia. She is not agitated or confused. She is alert and awake oriented x2. Patient's chart, labs, images were reviewed and discussed with RN Vitals Vitals Vital Signs Date Time Temp Pulse Resp B/P (MAP) Pulse Ox O2 Delivery O2 Flow Rate FiO2 05/13/20 07:00 98.1 95 18 127/64 (85) 95 Nasal Cannula 3.0 98.1 Physical Exam Physical Exam GEN: No apparent distress. Alert and oriented HEENT: Normal cephalic, atraumatic, external auditory canals are patent NECK: Supple, no JVD, no thyromegaly was noted LUNGS: mild exp wheezes HEART: RRR, S1, S2 present. Peripheral pulses intact, no obvious murmurs noted ABDOMEN: Soft, nontender. Positive bowel sounds, no organomegaly, normal bowel sounds EXTREMITIES: No bilateral pedal edema. Dressings are clean dry intact. Hips is stable General: Alert, Oriented X3, Cooperative, No acute distress Heart: Regular rate Lungs: Clear, Other (mild wheezing ) Abdomen: Normal bowel sounds, Soft, No tenderness Extremities: No clubbing Skin: No breakdown Brief Hospital Course Ms. Gibbs is a 89 old [sex] who presented with [ ACUTE LEFT HIP FRACTURE] CONDITION AT DISCHARGE: Improved Discharge Medications Current Medications Fentanyl Citrate (Fentanyl 2ml Vial) 25 mcg 1X ONCE IVP Last administered on 05/07/20at 18:12; Start 05/07/20 at 17:45; Stop 05/07/20 at 17:46; Status DC Albuterol Sulfate (Ventolin Neb Soln) 2.5 mg 1X ONCE NEB Last administered on 05/07/20at 18:28; Start 05/07/20 at 17:45; Stop 05/07/20 at 17:46; Status DC Fentanyl Citrate (Fentanyl 2ml Vial) 50 mcg 1X ONCE IVP Last administered on 05/07/20at 18:47; Start 05/07/20 at 18:45; Stop 05/07/20 at 18:46; Status DC Potassium Chloride (Klor-Con) 40 meq 1X PRN PO PER PROTOCOL; Start 05/07/20 at 20:30 Potassium Chloride/Water 100 ml @ 100 mls/hr PRN Q1HR PRN IV SEE COMMENTS; Start 05/07/20 at 20:30 Potassium Phos/ Sodium Phos (Phos-Nak) 1 pkt PRN BID PRN PO SEE COMMENTS; Start 05/07/20 at 21:00 Potassium Bicarbonate (Potassium Effervescent Tablet) 40 meq PRN Q4HRS PRN PO SEE COMMENTS; Start 05/07/20 at 20:30 Potassium Chloride/Water 100 ml @ 100 mls/hr PRN Q1HR PRN IV SEE COMMENTS; Start 05/07/20 at 20:30 Hydromorphone HCl (Dilaudid) 0.2 mg PRN Q1HR PRN IV PAIN Last administered on 05/09/20at 11:27; Start 05/07/20 at 20:30; Stop 05/09/20 at 13:28; Status DC Potassium Chloride (Klor-Con) 40 meq 1X ONCE PO Last administered on 05/07/20at 22:27; Start 05/07/20 at 21:00; Stop 05/07/20 at 21:01; Status DC Albuterol Sulfate (Ventolin Neb Soln) 2.5 mg PRN QID PRN NEB SHORTNESS OF BREATH Last administered on 05/08/20at 12:42; Start 05/07/20 at 21:45 Enoxaparin Sodium (Lovenox 30mg Syringe) 30 mg 1X ONCE SQ ; Start 05/07/20 at 21:45; Stop 05/07/20 at 21:46; Status DC Propofol (Diprivan) 200 mg STK-MED ONCE IV ; Start 05/08/20 at 08:37; Stop 05/08/20 at 08:38; Status DC Lidocaine HCl (Lidocaine Pf 2% Vial) 5 ml STK-MED ONCE .ROUTE ; Start 05/08/20 at 08:37; Stop 05/08/20 at 08:38; Status DC Fentanyl Citrate (Fentanyl 2ml Vial) 100 mcg STK-MED ONCE .ROUTE ; Start 05/08/20 at 08:37; Stop 05/08/20 at 08:38; Status DC Morphine Sulfate 5 mg/Ropivacaine 60 ml/Epinephrine HCl 0.5 mg/Sodium Chloride 99 ml @ 99 mls/hr 1X ONCE INT ART Last administered on 05/08/20at 10:33; Start 05/08/20 at 09:00; Stop 05/08/20 at 09:59; Status DC Cefazolin Sodium/ Dextrose 50 ml @ 100 mls/hr 1X ONCE IV Last administered on 05/08/20at 10:04; Start 05/08/20 at 08:49; Stop 05/08/20 at 09:18; Status DC Fentanyl Citrate (Fentanyl 2ml Vial) 100 mcg STK-MED ONCE .ROUTE ; Start 05/08/20 at 09:12; Stop 05/08/20 at 09:12; Status DC Ondansetron HCl (Zofran) 4 mg PRN Q6HRS PRN IV NAUSEA/VOMITING; Start 05/08/20 at 09:30; Stop 05/08/20 at 16:00; Status DC Fentanyl Citrate (Fentanyl 2ml Vial) 25 mcg PRN Q5MIN PRN IV MILD PAIN 1-3; Start 05/08/20 at 09:30; Stop 05/08/20 at 16:00; Status DC Fentanyl Citrate (Fentanyl 2ml Vial) 50 mcg PRN Q5MIN PRN IV MODERATE TO SEVERE PAIN; Start 05/08/20 at 09:30; Stop 05/08/20 at 16:00; Status DC Morphine Sulfate (Morphine Sulfate) 1 mg PRN Q10MIN PRN IV SEVERE PAIN 7-10; Start 05/08/20 at 09:30; Stop 05/08/20 at 16:00; Status DC Ringer's Solution 1,000 ml @ 30 mls/hr Q24H IV Last administered on 05/08/20at 08:00; Start 05/08/20 at 09:18; Stop 05/08/20 at 21:17; Status DC Lidocaine HCl (Xylocaine-Mpf 1% 2ml Vial) 2 ml PRN 1X PRN ID PRIOR TO IV START; Start 05/08/20 at 09:30; Stop 05/08/20 at 16:00; Status DC Hydromorphone HCl (Dilaudid) 0.5 mg PRN Q10MIN PRN IV SEV PAIN, Second choice; Start 05/08/20 at 09:30; Stop 05/08/20 at 16:00; Status DC Prochlorperazine Edisylate (Compazine) 5 mg PACU PRN PRN IV NAUSEA, MRX1; Start 05/08/20 at 09:30; Stop 05/08/20 at 16:00; Status DC Cefazolin Sodium (Ancef) 1 gm Q6H IVP ; Start 05/08/20 at 09:45; Stop 05/08/20 at 21:46; Status UNV Phenylephrine HCl (PHENYLEPHRINE in 0.9% NACL PF) 1 mg STK-MED ONCE IV ; Start 05/08/20 at 10:26; Stop 05/08/20 at 10:26; Status DC Phenylephrine HCl ([place]annan-Synephrine Inj) 10 mg STK-MED ONCE .ROUTE ; Start 05/08/20 at 10:26; Stop 05/08/20 at 10:27; Status DC Sevoflurane (Ultane) 60 ml STK-MED ONCE IH ; Start 05/08/20 at 10:33; Stop 05/08/20 at 10:33; Status DC Ephedrine Sulfate (ePHEDrine PF IN SALINE SYRINGE) 50 mg STK-MED ONCE IV ; Start 05/08/20 at 10:40; Stop 05/08/20 at 10:40; Status DC Ondansetron HCl (Zofran) 4 mg STK-MED ONCE .ROUTE ; Start 05/08/20 at 10:47; Stop 05/08/20 at 10:47; Status DC Clindamycin Phosphate 50 ml @ 100 mls/hr Q8H IV Last administered on 05/09/20at 06:38; Start 05/08/20 at 15:00; Stop 05/09/20 at 07:29; Status DC Enoxaparin Sodium (Lovenox 30mg Syringe) 30 mg DAILY SQ Last administered on 05/13/20at 09:16; Start 05/09/20 at 09:00 Albuterol/ Ipratropium (Duoneb) 3 ml RTQID NEB Last administered on 05/13/20at 06:39; Start 05/08/20 at 16:00 Ringer's Solution 1,000 ml @ 250 mls/hr Q4H ONCE IV Last administered on 05/08/20at 12:58; Start 05/08/20 at 13:00; Stop 05/08/20 at 16:59; Status DC Sodium Chloride 500 ml @ 250 mls/hr 1X ONCE IV Last administered on 05/08/20at 20:15; Start 05/08/20 at 20:15; Stop 05/08/20 at 22:14; Status DC Sodium Chloride 1,000 ml @ 100 mls/hr Q10H IV Last administered on 05/09/20at 09:41; Start 05/08/20 at 20:15; Stop 05/09/20 at 12:50; Status DC Sodium Chloride 250 ml @ 250 mls/hr 1X ONCE IV Last administered on 05/08/20at 21:23; Start 05/08/20 at 21:30; Stop 05/08/20 at 22:29; Status DC Sodium Chloride 500 ml @ 500 mls/hr 1X ONCE IV Last administered on 05/08/20at 23:27; Start 05/08/20 at 23:00; Stop 05/08/20 at 23:59; Status DC Albumin Human 500 ml @ 125 mls/hr 1X ONCE IV Last administered on 05/09/20at 02:00; Start 05/09/20 at 02:00; Stop 05/09/20 at 05:59; Status DC Sodium Chloride 500 ml @ 500 mls/hr 1X ONCE IV Last administered on 05/09/20at 02:00; Start 05/09/20 at 02:00; Stop 05/09/20 at 02:59; Status DC Budesonide (Pulmicort) 0.5 mg RTBID NEB Last administered on 05/13/20at 06:39; Start 05/09/20 at 10:00 Amino Acids/ Glycerin/ Electrolytes 1,000 ml @ 80 mls/hr [id number] IV Last administered on 05/10/20at 02:30; Start 05/09/20 at 13:00 Acetaminophen (Tylenol) 650 mg PRN Q6HRS PRN PO MILD PAIN 1-3; Start 05/09/20 at 13:30 Oxycodone/ Acetaminophen (Percocet 5/325) 1 tab PRN Q6HRS PRN PO MODERATE TO SEVERE PAIN Last administered on 05/13/20at 09:23; Start 05/09/20 at 13:30 Docusate Sodium (Colace) 100 mg PRN DAILY PRN PO HARD STOOLS; Start 05/12/20 at 10:45 Polyethylene Glycol (miraLAX PACKET) 17 gm DAILY PO Last administered on 05/13/20at 09:15; Start 05/12/20 at 11:30 Bisacodyl (Dulcolax Tab) 10 mg DAILY PO Last administered on 05/13/20at 09:23; Start 05/13/20 at 10:00 Senna/Docusate Sodium (Senna Plus) 1 tab BID PO Last administered on 05/13/20at 09:23; Start 05/13/20 at 09:15 Active Scripts Active Reported Benefiber (Wheat Dextrin) 1 Each Powd.pack 1 Each PO PRN DAILY PRN [Albuterol Inhaler] [Advair] Atrovent Hfa (Ipratropium [place]) 12.9 Gm Hfa.aer.ad 2 Puff IH QID [synthroid] [Diltiazem] Montelukast Sodium Tablet (Montelukast Sodium) 10 Mg Tablet 10 Mg PO HS Claritin-D 24 Hour Tablet (Loratadine/Pseudoephedrine) 1 Each Tab.er.24h 1 Tab PO DAILY 10 Days Flonase Allergy Relief (Fluticasone Propionate) 9.9 Ml [place].susp 2 Sprays NS DAILY Vital Signs Vital Signs Date Time Temp Pulse Resp B/P (MAP) Pulse Ox O2 Delivery O2 Flow Rate FiO2 05/13/20 09:23 20 95 Nasal Cannula 3.0 05/13/20 07:00 98.1 95 127/64 (85) 98.1 Labs Laboratory Tests Test 05/13/20 04:10 White Blood Count 7.5 x10^3/uL (4.0-11.0) Red Blood Count 2.89 x10^6/uL (3.50-5.40) Hemoglobin 8.6 g/dL (12.0-15.5) Hematocrit 25.7 % (36.0-47.0) Mean Corpuscular Volume 89 fL (79-100) Mean Corpuscular Hemoglobin 30 pg (25-35) Mean Corpuscular Hemoglobin Concent 33 g/dL (31-37) Red Cell Distribution Width 16.0 % (11.5-14.5) Platelet Count 277 x10^3/uL (140-400) Neutrophils (%) (Auto) 71 % (31-73) Lymphocytes (%) (Auto) 11 % (24-48) Monocytes (%) (Auto) 14 % (0-9) Eosinophils (%) (Auto) 4 % (0-3) Basophils (%) (Auto) 1 % (0-3) Neutrophils # (Auto) 5.3 x10^3/uL (1.8-7.7) Lymphocytes # (Auto) 0.8 x10^3/uL (1.0-4.8) Monocytes # (Auto) 1.0 x10^3/uL (0.0-1.1) Eosinophils # (Auto) 0.3 x10^3/uL (0.0-0.7) Basophils # (Auto) 0.0 x10^3/uL (0.0-0.2) Sodium Level 141 mmol/L (136-145) Potassium Level 5.1 mmol/L (3.5-5.1) Chloride Level 102 mmol/L (98-107) Carbon Dioxide Level 39 mmol/L (21-32) Anion Gap 0 (6-14) Blood Urea Nitrogen 15 mg/dL (7-20) Creatinine 0.7 mg/dL (0.6-1.0) Estimated GFR (Cockcroft-Gault) 79.2 Glucose Level 117 mg/dL (70-99) Calcium Level 8.8 mg/dL (8.5-10.1) Laboratory Tests Test 05/13/20 04:10 White Blood Count 7.5 x10^3/uL (4.0-11.0) Red Blood Count 2.89 x10^6/uL (3.50-5.40) Hemoglobin 8.6 g/dL (12.0-15.5) Hematocrit 25.7 % (36.0-47.0) Mean Corpuscular Volume 89 fL (79-100) Mean Corpuscular Hemoglobin 30 pg (25-35) Mean Corpuscular Hemoglobin Concent 33 g/dL (31-37) Red Cell Distribution Width 16.0 % (11.5-14.5) Platelet Count 277 x10^3/uL (140-400) Neutrophils (%) (Auto) 71 % (31-73) Lymphocytes (%) (Auto) 11 % (24-48) Monocytes (%) (Auto) 14 % (0-9) Eosinophils (%) (Auto) 4 % (0-3) Basophils (%) (Auto) 1 % (0-3) Neutrophils # (Auto) 5.3 x10^3/uL (1.8-7.7) Lymphocytes # (Auto) 0.8 x10^3/uL (1.0-4.8) Monocytes # (Auto) 1.0 x10^3/uL (0.0-1.1) Eosinophils # (Auto) 0.3 x10^3/uL (0.0-0.7) Basophils # (Auto) 0.0 x10^3/uL (0.0-0.2) Sodium Level 141 mmol/L (136-145) Potassium Level 5.1 mmol/L (3.5-5.1) Chloride Level 102 mmol/L (98-107) Carbon Dioxide Level 39 mmol/L (21-32) Anion Gap 0 (6-14) Blood Urea Nitrogen 15 mg/dL (7-20) Creatinine 0.7 mg/dL (0.6-1.0) Estimated GFR (Cockcroft-Gault) 79.2 Glucose Level 117 mg/dL (70-99) Calcium Level 8.8 mg/dL (8.5-10.1) Allergies Allergies Coded Allergies Type Severity Reaction Last Updated Verified Penicillins Allergy Intermediate Rash 05/08/20 Yes amoxicillin Allergy Intermediate Rash 05/08/20 Yes aspirin Allergy Intermediate 05/08/20 Yes clarithromycin Allergy Intermediate 05/08/20 Yes erythromycin base Allergy Intermediate Rash 05/08/20 Yes ibuprofen Allergy Intermediate 05/08/20 Yes Disposition/Orders: Other (D/C TO [facility] , [place]) Justicifation of Admission Dx: Justifications for Admission: Justification of Admission Dx: Yes Fracture: Fracture YUSEF NANCE MD May 13, 2020 09:54
--- NOTE | 2020-05-13 09:58 | CONS ---
DATE OF CONSULTATION: 05/13/2020 ATTENDING PHYSICIAN: Dr. Hi. REASON FOR CONSULTATION: The patient was seen at the request of Dr. Xiong for rehab evaluation about her left heel cord tightness. HISTORY OF PRESENT ILLNESS: This is an 89-year-old female with known chronic obstructive pulmonary disease, who uses oxygen at nighttime and on as needed basis during the daytime. The patient was admitted on 05/07/2020 after she fell at home and since then having left groin area pain. She apparently tripped over a rug in her bedroom without any dizziness or loss of consciousness. She lives alone at home, walks unassisted. She had a walker, but does not use that. The patient had stairs to go to the basement, but does not need to go down there. The patient was found with fractured neck intertrochanteric left femur and she had closed reduction and intramedullary nail placement done on 05/08/2020. The patient denies any significant pain. She admits constipation. She admits urine spilling out when she coughs. The patient is with known carcinoma of breast, KNOWN ALLERGIC TO PENICILLIN, AMOXICILLIN, ASPIRIN, CLARITHROMYCIN, ERYTHROMYCIN, IBUPROFEN. She smokes about a pack of cigarettes every 2-3 days. The patient was noted with a tight left heel cord. The patient reports of Dr. Hinojosa, her family doctor, mentioned to her that she had peripheral neuropathy. The patient denies any tingling, numbness sensation in the extremities. PHYSICAL EXAMINATION: Today revealed an elderly female. She is alert, oriented to place and person, follows commands appropriately, moves all 4 extremities voluntarily where she had 4+/5 grade muscle strength. Deep tendon reflexes are brisk bilaterally with absent ankle jerks. The patient had equal perception of touch and pinprick sensation bilaterally. She had tight left heel cord. She had bruised skin over posterior aspect of both elbows over medial aspect of left thigh. She had no significant pain on range of motion of her hip or knee or ankle joints. Minimal tenderness to palpation over left tendo Achilles. No significant tenderness to palpation over left calf. She requires help with bed mobility. I have not tested her transfers or ambulation skills at this time, but as per physical therapy notes, she required 2-person assistance with transfers and she made a few steps with a roller walker at bedside. She is using oxygen by nasal cannula and gets short of breath very easily. ASSESSMENT: Elderly female status post closed reduction and intramedullary nail fixation of fracture, left femoral neck intertrochanteric, date of fracture 05/07/2020, date of surgery 05/08/2020. The patient presents with tight left heel cord. Clinical evidence of peripheral neuropathy, chronic obstructive pulmonary disease, oxygen dependent, constipation to rule out neurogenic bladder as she admits urine spilling out when she coughs. RECOMMENDATIONS: Agree with the plans for transfer to senior care care unit when she is medically stable, she needs to stand up on her feet to try to stretch the heel cords. At present time, she does not need any bracing for her tight heel cord to work on her constipation and to check post-voiding urine residual by bladder scan. Dr. Xinog, I appreciate asking me to participate in the care of this interesting patient. I will be glad to see her for followup with you on as needed basis. TARAS ZHENG MD DR: DAMI/nicole JOB#: [id number] / [id number]
[2020-05-13] MEDS ORDERED: BISACODYL 5 MG TABLET.DR. PO SCH (10:00)
[2020-05-13] MEDS ORDERED: DOCU-153 PO (10:01)
[2020-05-13] MEDS ORDERED: IPRA3AMP29 NEB (10:01)
[2020-05-13] MEDS ORDERED: BISA5TAB4 PO (10:01)
[2020-05-13] MEDS ORDERED: ENOX30DI3 SQ (10:01)
[2020-05-13] MEDS ORDERED: ALBU2.5V8 NEB (10:01)
[2020-05-13] MEDS ORDERED: OXYC1TAB15 PO (10:01)
[2020-05-13] MEDS ORDERED: ACET325T9 PO (10:01)
[2020-05-13] MEDS ORDERED: BUDE0.5A NEB (10:01)
[2020-05-13] MEDS ORDERED: NAPH1POW2 PO (10:01)
--- NOTE | 2020-05-13 10:03 | SNU/HH DC ---
DISCHARGE ORDERS DISCHARGE INFORMATION: CONDITION ON DISCHARGE: Stable CODE STATUS: Code Status: Full SENIOR CARE: SNF STAY <30 DAYS: Yes HOSPICE: HOSPICE: No HOSPICE EVAL & TREAT: No LTAC: ADMIT TO LTAC: No POST DISCHARGE ORDERS: ACTIVITY ORDERS: Activity as tolerated DIET AFTER DISCHARGE: Cardiac WOUND/INCISION CARE: Reinforce dressing PRN CHECKS AFTER DISCHARGE: CHECKS AFTER DISCHARGE: Check blood press - daily TREATMENT/EQUIPMENT ORDERS: ADAPTIVE EQUIPMENT NEEDED: Front wheeled walker RESPIRATORY EQUIPMENT NEEDED: Oxygen, Nebulizer Physical Therapy For: Evalulation/Treatment Occupational Therapy For: Evaluation/Treatment DISCHARGE MEDICATIONS: Home Meds Active Scripts Docusate Sodium (DOK) 100 Mg Capsule, 100 MG PO PRN DAILY PRN for HARD STOOLS for 30 Days, #60 CAP Prov:YUSEF NANCE MD 05/13/20 Bisacodyl (BISACODYL) 5 Mg Tablet.dr, 10 MG PO DAILY for PRN CONSTIPATION for 14 Days, #28 TAB.SR Prov:YUSEF NANCE MD 05/13/20 Budesonide (BUDESONIDE) 0.5 Mg/2 Ml Ampul.neb, 0.5 MG NEB RTBID for COPD for 30 Days, #60 EACH Prov:YUSEF NANCE MD 05/13/20 Naph,Mb-Db/K Ph,Mbdb (PHOS-NAK PACKET) 1 Each Powd.pack, 1 PKT PO PRN BID PRN for SEE COMMENTS for 30 Days, #30 PKT Prov:YUSEF NANCE MD 05/13/20 Acetaminophen (TYLENOL) 325 Mg Tablet, 650 MG PO PRN Q6HRS PRN for MILD PAIN 1-3 for 30 Days, #60 TAB Prov:YUSEF NANCE MD 05/13/20 Oxycodone/Apap 5-325 (PERCOCET 5-325 MG TABLET ) 1 Each Tablet, 1 TAB PO PRN Q6HRS PRN for MODERATE TO SEVERE PAIN for 14 Days, #30 TAB Prov:YUSEF NANCE MD 05/13/20 Enoxaparin Sodium (ENOXAPARIN SODIUM) 30 Mg/0.3 Ml Disp.syrin, 30 MG SQ DAILY for DVT PREVENTION for 10 Days, #10 DIS.SYR Prov:YUSEF NANCE MD 05/13/20 Albuterol Sulfate (Proair Hfa) 8.5 Gm Hfa.aer.ad, 2.5 MG NEB PRN QID PRN for SHORTNESS OF BREATH for 30 Days, #1 INHALER Prov:YUSEF NANCE MD 05/13/20 Ipratropium/Albuterol Sulfate (DUONEB 0.5-3(2.5) MG/3 ML) 3 Ml Ampul.neb, 3 ML NEB RTQID for COPD for 30 Days, #120 EACH Prov:YUSEF NANCE MD 05/13/20 Reported Medications Wheat Dextrin (Benefiber) 1 Each Powd.pack, 1 EACH PO PRN DAILY PRN for CONSTIPATION, PKT 05/08/20 Ipratropium [place] (ATROVENT HFA) 12.9 Gm Hfa.aer.ad, 2 PUFF IH QID for Asthma/COPD, #12.9 GM 3 Refills 05/08/20 [synthroid] No Conflict Check 05/08/20 [Diltiazem] No Conflict Check 05/08/20 Montelukast Sodium (MONTELUKAST SODIUM TABLET ) 10 Mg Tablet, 10 MG PO HS for FOR ASTHMA, TAB 0 Refills 05/08/20 Fluticasone Propionate (Flonase Allergy Relief) 9.9 Ml [place].susp, 2 SPRAYS NS DAILY for allergies, BOTTLE 05/08/20 Discontinued Reported Medications [Albuterol Inhaler] No Conflict Check 05/08/20 [Advair] No Conflict Check 05/08/20 Loratadine/Pseudoephedrine (CLARITIN-D 24 HOUR TABLET) 1 Each Tab.er.24h, 1 TAB PO DAILY for allergies for 10 Days, #10 TAB 0 Refills 05/08/20 YUSEF NANCE MD May 13, 2020 10:03
--- NOTE | 2020-05-13 10:36 | PDOC ---
PULMONARY PROGRESS NOTES Subjective extubated 05/08, feeling better on N/C no SOA, or cough on home 02 no concerns from nursing overnight Vitals Vital Signs Date Time Temp Pulse Resp B/P (MAP) Pulse Ox O2 Delivery O2 Flow Rate FiO2 05/13/20 09:23 20 95 Nasal Cannula 3.0 05/13/20 07:00 98.1 95 127/64 (85) 98.1 ROS: No Nausea, No Chest Pain, No Abdominal Pain, No Increase Cough General: Alert HEENT: Other (nc at perrl) Lungs: Clear, Other (mild wheezing ) Cardiovascular: S1, S2 Abdomen: Soft, Non-tender Neuro Exam: Alert Extremities: No Edema Skin: Warm Labs Laboratory Tests Test 05/13/20 04:10 White Blood Count 7.5 x10^3/uL (4.0-11.0) Red Blood Count 2.89 x10^6/uL (3.50-5.40) Hemoglobin 8.6 g/dL (12.0-15.5) Hematocrit 25.7 % (36.0-47.0) Mean Corpuscular Volume 89 fL (79-100) Mean Corpuscular Hemoglobin 30 pg (25-35) Mean Corpuscular Hemoglobin Concent 33 g/dL (31-37) Red Cell Distribution Width 16.0 % (11.5-14.5) Platelet Count 277 x10^3/uL (140-400) Neutrophils (%) (Auto) 71 % (31-73) Lymphocytes (%) (Auto) 11 % (24-48) Monocytes (%) (Auto) 14 % (0-9) Eosinophils (%) (Auto) 4 % (0-3) Basophils (%) (Auto) 1 % (0-3) Neutrophils # (Auto) 5.3 x10^3/uL (1.8-7.7) Lymphocytes # (Auto) 0.8 x10^3/uL (1.0-4.8) Monocytes # (Auto) 1.0 x10^3/uL (0.0-1.1) Eosinophils # (Auto) 0.3 x10^3/uL (0.0-0.7) Basophils # (Auto) 0.0 x10^3/uL (0.0-0.2) Sodium Level 141 mmol/L (136-145) Potassium Level 5.1 mmol/L (3.5-5.1) Chloride Level 102 mmol/L (98-107) Carbon Dioxide Level 39 mmol/L (21-32) Anion Gap 0 (6-14) Blood Urea Nitrogen 15 mg/dL (7-20) Creatinine 0.7 mg/dL (0.6-1.0) Estimated GFR (Cockcroft-Gault) 79.2 Glucose Level 117 mg/dL (70-99) Calcium Level 8.8 mg/dL (8.5-10.1) Laboratory Tests Test 05/13/20 04:10 White Blood Count 7.5 x10^3/uL (4.0-11.0) Red Blood Count 2.89 x10^6/uL (3.50-5.40) Hemoglobin 8.6 g/dL (12.0-15.5) Hematocrit 25.7 % (36.0-47.0) Mean Corpuscular Volume 89 fL (79-100) Mean Corpuscular Hemoglobin 30 pg (25-35) Mean Corpuscular Hemoglobin Concent 33 g/dL (31-37) Red Cell Distribution Width 16.0 % (11.5-14.5) Platelet Count 277 x10^3/uL (140-400) Neutrophils (%) (Auto) 71 % (31-73) Lymphocytes (%) (Auto) 11 % (24-48) Monocytes (%) (Auto) 14 % (0-9) Eosinophils (%) (Auto) 4 % (0-3) Basophils (%) (Auto) 1 % (0-3) Neutrophils # (Auto) 5.3 x10^3/uL (1.8-7.7) Lymphocytes # (Auto) 0.8 x10^3/uL (1.0-4.8) Monocytes # (Auto) 1.0 x10^3/uL (0.0-1.1) Eosinophils # (Auto) 0.3 x10^3/uL (0.0-0.7) Basophils # (Auto) 0.0 x10^3/uL (0.0-0.2) Sodium Level 141 mmol/L (136-145) Potassium Level 5.1 mmol/L (3.5-5.1) Chloride Level 102 mmol/L (98-107) Carbon Dioxide Level 39 mmol/L (21-32) Anion Gap 0 (6-14) Blood Urea Nitrogen 15 mg/dL (7-20) Creatinine 0.7 mg/dL (0.6-1.0) Estimated GFR (Cockcroft-Gault) 79.2 Glucose Level 117 mg/dL (70-99) Calcium Level 8.8 mg/dL (8.5-10.1) Medications Active Scripts Medications Dose Route/Sig Max Daily Dose Days Date Category Benefiber (Wheat Dextrin) 1 Each Powd.pack 1 Each PO PRN DAILY PRN 05/08/20 Reported [Albuterol Inhaler] 05/08/20 Reported [Advair] 05/08/20 Reported Atrovent Hfa (Ipratropium [place]) 12.9 Gm Hfa.aer.ad 2 Puff IH QID 05/08/20 Reported [synthroid] 05/08/20 Reported [Diltiazem] 05/08/20 Reported Montelukast Sodium Tablet (Montelukast Sodium) 10 Mg Tablet 10 Mg PO HS 05/08/20 Reported Claritin-D 24 Hour Tablet (Loratadine/Pseudoephedrine) 1 Each Tab.er.24h 1 Tab PO DAILY 10 05/08/20 Reported Flonase Allergy Relief (Fluticasone Propionate) 9.9 Ml [place].susp 2 Sprays NS DAILY 05/08/20 Reported Impression . IMPRESSION: 1. [id number] hypercapnic respiratory failure which is expected in a patient who underwent left hip surgery - extubated 05/08 2. Underlying chronic obstructive pulmonary disease. 3. Left intertrochanteric hip fracture, status post closed reduction and intramedullary nailing of the left intertrochanteric hip fracture. 4. THANIA, improving Plan . RECOMMENDATIONS: 1. Extubated 05/08, now on 3 liters N/C tolerating well, cont BD 2. Continue DuoNeb and pulmicort 3. Lovenox for DVT prophylaxis. 4. Empiric antibiotic per Ortho. 5. Continue supportive care. 6. pt ot Discussed with RN pt and her daughter ok with dc to [facility] Mensah MD May 13, 2020 10:36
[2020-05-13 11:08] VITALS: BP 138/89
== END 2020-05-13 13:20 | DRG 480 ==
LOC: ER 16:32 → 4 NORTH 20:20 → 1 WEST ICU 05-08 13:28 → 4 NORTH 05-09 14:01
PROVIDERS: ADMIT Internal Medicine; ATTEND Internal Medicine
PROC: 5A1945Z Respiratory Ventilation, 24-96 Consecutive Hours (ICD-10-PCS; 2020-05-08)
PROC: 0BH17EZ Insertion of Endotracheal Airway into Trachea, Via Natural or Artificial Opening (ICD-10-PCS; 2020-05-08)
PROC: 0QS736Z Reposition Left Upper Femur with Intramedullary Internal Fixation Device, Percutaneous Approach (ICD-10-PCS; principal; 2020-05-08 09:30)
DX: S72.142A Displaced intertrochanteric fracture of left femur, initial encounter for closed fracture (principal); J96.22 Acute and chronic respiratory failure with hypercapnia; E87.2 Acidosis; N17.9 Acute kidney failure, unspecified; J44.9 Chronic obstructive pulmonary disease, unspecified; Z20.828 Contact with and (suspected) exposure to other viral communicable diseases; M85.80 Other specified disorders of bone density and structure, unspecified site; E87.6 Hypokalemia; I10 Essential (primary) hypertension; F03.90 Unspecified dementia, unspecified severity, without behavioral disturbance, psychotic disturbance, mood disturbance, and anxiety; H91.90 Unspecified hearing loss, unspecified ear; E86.0 Dehydration; K59.00 Constipation, unspecified; R91.1 Solitary pulmonary nodule; G62.9 Polyneuropathy, unspecified; J98.4 Other disorders of lung; F17.210 Nicotine dependence, cigarettes, uncomplicated; W18.09XA Striking against other object with subsequent fall, initial encounter; Y93.89 Activity, other specified; Y92.092 Bedroom in other non-institutional residence as the place of occurrence of the external cause; Y99.8 Other external cause status; Z88.6 Allergy status to analgesic agent; Z88.0 Allergy status to penicillin; Z88.8 Allergy status to other drugs, medicaments and biological substances; Z79.01 Long term (current) use of anticoagulants; Z99.81 Dependence on supplemental oxygen; Z85.3 Personal history of malignant neoplasm of breast; Z82.49 Family history of ischemic heart disease and other diseases of the circulatory system
CPT/HCPCS: 36415; 36600; 71045; 73502; 76000; 76770; 80048; 80053; 81001; 82306; 82805; 83735; 85025; 85610; 85730; 87426; 87641; 94002; 94640; 94760; 96374; 96375; 99285; A7015; C1713; C1887; J0171; J0690; J1170; J1650; J2270; J2370; J2405; J2704; J2795; J3010; J3490; J7030; J7040; J7050; J7120; P9045; 97110-GP; 97116-GP; 97530-GO; 97530-GP; 97535-GO; G0378; J7613; J7626; U0003-CS